=== PATIENT | female | born 1990 | race Caucasian/White ===

== ENCOUNTER → 2016-10-20 | Outpatient (CLI) | payer OTHER ==
[2016-10-20 14:04] VITALS: BP 103/67; PULSE 75; RESP 16; TEMP 99; BMI 43.6
--- NOTE | 2016-11-16 15:10 | P.PN ---
Progress Note - Text REASON FOR CONSULTATION: Initial bariatric evaluation. HISTORY OF PRESENT ILLNESS: The patient is a 26-year-old female who presents with a long-standing history of morbid obesity. At her height of 5 foot 2, her ideal body weight is 135 pounds. Today she comes in at her heaviest of 245 pounds. She is 110 pounds overweight. Her personal goal is to get down to 120 pounds. She reports developing lower back pain including hip pain and knee pain and ankle pain from her obesity. She has also developed obstructive sleep apnea for which treatment is pending. She has tried weight loss with minimal success with caloric restriction. Separately she comes in with troubles with fatty greasy foods. She is maintaining a food an exercise journal. She denies any family history or personal history of Crohn's disease, gastrointestinal cancer, DVTs or pulmonary embolisms. She comes in for evaluation for a Hanh-en- Y gastric bypass. PAST MEDICAL HISTORY: 1. Attention deficit disorder. 2. Depression. 3. Morbid obesity. 4. Osteoarthritis of the bilateral hips. 5. Osteoarthritis of the bilateral knees. 6. Vitamin D deficiency. 7. Anxiety. PAST SURGICAL HISTORY: 1. Denies any upper endoscopies. 2. Denies any abdominal surgeries. 3. LEEP procedure. HOME MEDICATIONS: 1. Wellbutrin 2. Adderall. 3. Vitamin D. ALLERGIES: None. SOCIAL HISTORY: Active tobacco use. FAMILY HISTORY: Denies any DVTs, pulmonary embolisms in her family. Denies any ulcerative colitis disease or Crohn's. She does have a family history of morbid obesity. REVIEW OF ORGAN SYSTEMS: CONSTITUTIONAL: No recent weight loss, fevers or chills. At her height of 5 foot 2, her ideal body weight is 135 pounds. Today she comes in at her heaviest of 245 pounds. She is 110 pounds overweight. HEENT: Denies any active troubles with vision or hearing. ENDOCRINE: No reports of diabetes or hypothyroidism. CARDIOVASCULAR: No reports of palpitations or heart attacks or chest pain. RESPIRATORY: Has daytime somnolence including snoring, suspicious for sleep apnea. No recent asthma. GI: Denies any bright red blood per rectum, diarrhea or constipation. Has intermittent heartburn which had been present during . MUSCULOSKELETAL: Describes generalized muscle aches, including lower back pain or joint pain. NEURO: There were no reports of headaches or seizure disorders. PSYCH: Has depression without suicidal ideation. Has anxiety. HEMATOLOGIC: Denies any abnormal bleeding or bruising. PHYSICAL EXAM: VITAL SIGNS: height 5 foot 2 inches, weight 245 pounds. BMI 43.7. Vital Signs Temp 99 F 10/20/16 13:54 Pulse 75 10/20/16 13:54 Resp 16 10/20/16 13:54 BP 103/67 10/20/16 13:54 Pulse Ox GENERAL: Well-developed female in no acute distress. HEENT: No scleral icterus. Extraocular was grossly intact. No nasal drainage. NECK: Supple without lymphadenopathy. CHEST: Nonlabored respirations with equal bilateral excursions. CARDIOVASCULAR: Regular rate. Distal 2+ pulses. ABDOMEN: Obese, soft, nontender, nondistended. MUSCULOSKELETAL: No clubbing, cyanosis, or edema. Gross strength 5/5 distal lower extremities. NEURO: No focal or lateralizing signs. Cranial nerves 2 through 12 grossly within normal limits. PSYCH: Appropriate affect. Alert and oriented to person, place and time. ASSESSMENT: 1. Morbid obesity due to excess calories. 2. Body mass index of 43.7. 3. Active tobacco use. 4. Tobacco cessation and counseling. 5. Anxiety. 6. Depression. 7. Vitamin D deficiency. 8. Osteoarthritis of the bilateral hips. 9. Osteoarthritis of the bilateral knees. 10. Obstructive sleep apnea. PLAN: 1. I have recommended that she proceed with an upper endoscopy as she has history of reflux disease. With her history of tobacco use, she is at an increased risk for Jackson's disease. 2. Per insurance guidelines, 6 months a medical supervised weight loss was described. Also recommend food and exercise journal. 3. Recommend a bariatric metabolic panel to evaluate for micro, including macronutrient deficiencies. 4. Dietary surveillance and counseling was reviewed, for which she often skips meals. I have asked her to increase her protein intake to at least 70 grams daily. Additionally, I have asked her to not skip meals as this is essentially for her metabolism. 5. Recommend follow-up after upper endoscopy. 6. Upon further discussion, she tested positive for a questionnaire for obstructive sleep apnea. Referral to the sleep center has also been described. 7. Tobacco cessation counseling advised with urine nicotine test. 8. Psych assessment recommended with history of depression and anxiety. Thank you for this consultation.
== END | disposition home or self-care (01) ==
LOC: BARWHC3 13:29
PROVIDERS: ATTEND Surgery Plastic and Reconstructive Surgery
DX: Z01.818 Encounter for other preprocedural examination (principal); E66.01 Morbid (severe) obesity due to excess calories; F17.200 Nicotine dependence, unspecified, uncomplicated; F17.220 Nicotine dependence, chewing tobacco, uncomplicated; F41.9 Anxiety disorder, unspecified; F32.9 Major depressive disorder, single episode, unspecified; G47.33 Obstructive sleep apnea (adult) (pediatric); M16.0 Bilateral primary osteoarthritis of hip; M17.0 Bilateral primary osteoarthritis of knee; Z68.41 Body mass index [BMI] 40.0-44.9, adult; Z71.6 Tobacco abuse counseling; Z79.899 Other long term (current) drug therapy
CPT/HCPCS: 99211

== ENCOUNTER 2016-10-27 10:25 | Day surgery (SDC) | payer OTHER ==
[2016-10-26 10:12] VITALS: BMI 42.0
--- NOTE | 2016-10-27 08:03 | P.GSHP ---
History of Present Illness H&P Date: 10/27/16 CHIEF COMPLAINT: GERD HISTORY OF PRESENT ILLNESS: The patient is a 26-year-old female who presents reports gastroesophageal reflux disease. Upper endoscopy was offered for further evaluation and management. PAST MEDICAL HISTORY: Please see list. PAST SURGICAL HISTORY: Please see list. MEDICATIONS: Please see list. ALLERGIES: Please see list. SOCIAL HISTORY: No illicit drug use FAMILY HISTORY: No reports of Crohn disease or ulcerative colitis. REVIEW OF ORGAN SYSTEMS: CONSTITUTIONAL: No reports of fevers or chills. GI: Denies any blood in stools or constipation. PHYSICAL EXAM: VITAL SIGNS: Stable GENERAL: Well-developed and pleasant in no acute distress. HEENT: No scleral icterus. Extraocular movements grossly intact. Moist buccal mucosa. NECK: Supple without lymphadenopathy. CHEST: Unlabored respirations. Equal bilateral excursions. CARDIOVASCULAR: Regular rate and rhythm. Distal 2+ pulses. ABDOMEN: Soft, nondistended. MUSCULOSKELETAL: No clubbing, cyanosis, or edema. ASSESSMENT: 1. Gastroesophageal reflux disease PLAN: 1. Recommend proceeding with an upper endoscopy Past Medical History Past Medical History: No Reported History Additional Past Medical History / Comment(s): SCREENING FOR GASTRIC BYPASS History of Any Multi-Drug Resistant Organisms: None Reported Past Surgical History: Section Additional Past Surgical History / Comment(s): LEEP Past Anesthesia/Blood Transfusion Reactions: No Reported Reaction Past Psychological History: ADD/ADHD, Anxiety, Depression Smoking Status: Current every day smoker Past Alcohol Use History: None Reported Additional Past Alcohol Use History / Comment(s): SMOKING 1/2 PPD SINCE AGE 15 Past Drug Use History: None Reported - Past Family History Mother History Unknown: Yes Family Medical History: No Reported History Medications and Allergies Home Medications Medication Instructions Recorded Confirmed Type Dextroamphetamine/Amphetamine 10 mg PO DAILY 10/20/16 10/26/16 History [Adderall] Ergocalciferol (Vitamin D2) 50,000 unit PO DIRECTED 10/20/16 10/26/16 History [Vitamin D2] buPROPion XL [Wellbutrin Xl] 150 mg PO DAILY 10/20/16 10/26/16 History Allergies Allergy/AdvReac Type Severity Reaction Status Date / Time No Known Allergies Allergy Verified 10/26/16 10:03
[~2016-10-27 10:25] MED LIST: LACTATED RINGERS 1,000 ML IV SCH; LIDOCAINE 1% 20 ML VIAL (10MG/ML) FOR IV START INTRADERMA PRN
[2016-10-27 10:47] VITALS: TEMP 96.8
[2016-10-27] MEDS ORDERED: PROPOFOL 10 MG/ML 20 ML VIAL IV ONE (11:28)
[2016-10-27] MEDS ORDERED: LIDOCAINE 1% INJ 10MG/ML (20 ML MDV) ONE (11:28)
[2016-10-27 11:52] VITALS: PULSE 81; RESP 16
[2016-10-27 12:21] VITALS: BP 110/67
--- NOTE | 2016-10-29 07:25 | P.PCN ---
Date of Procedure: 10/27/16 Preoperative Diagnosis: Postoperative Diagnosis: Procedure(s) Performed: Implants: Indications for Procedure: Operative Findings: Description of Procedure: PREOPERATIVE DIAGNOSIS: Gastroesophageal reflux disease. POSTOPERATIVE DIAGNOSIS: Gastritis. Gastroesophageal reflux disease. Diaphragmatic hiatal hernia without obstruction. Erosive esophagitis. OPERATION: Esophagogastroduodenoscopy with biopsies along antrum. SURGEON: Carmen Williamson MD ANESTHESIA: MAC. INDICATIONS: The patient is a 26-year-old female who presents with a history of reflux disease. Benefits and risks of the procedure were described. Informed consent was obtained. DESCRIPTION: The patient was brought into the endoscopy suite and laid in the left lateral decubitus position. An Olympus gastroscope was passed along the posterior oropharynx down to the distal esophagus where the squamocolumnar junction was encountered at 36 cm from the incisors. The stomach was entered and no bile reflux was found. Additional findings are listed below. Biopsies with cold forceps were obtained of the antrum. The first through third portion of the duodenum was examined and unremarkable. Retroflexion of the scope confirmed Hill grade 3 lower esophageal valve. The squamocolumnar junction demostrated LA grade C erosive esophagitis. The stomach was desufflated. The patient tolerated the procedure well. FINDINGS: Squamocolumnar junction 36 cm from the incisors. Diaphragmatic hiatus at 39 cm. Hiatal hernia 3 cm. Hill grade 3 lower esophageal valve. LA grade C erosive esophagitis. No active duodenitis. Chronic gastritis. RECOMMENDATIONS: Further recommendations pending results of pathology report. Upper endoscopy as needed. Plan - Discharge Summary New Discharge Prescriptions: New Omeprazole 40 mg PO DAILY #14 capsule. No Action Ergocalciferol (Vitamin D2) [Vitamin D2] 50,000 unit PO DIRECTED buPROPion XL [Wellbutrin Xl] 150 mg PO DAILY Dextroamphetamine/Amphetamine [Adderall] 10 mg PO DAILY Discharge Medication List Dextroamphetamine/Amphetamine [Adderall] 10 mg PO DAILY 10/20/16 [History] Ergocalciferol (Vitamin D2) [Vitamin D2] 50,000 unit PO DIRECTED 10/20/16 [ History] buPROPion XL [Wellbutrin Xl] 150 mg PO DAILY 10/20/16 [History] Omeprazole 40 mg PO DAILY #14 capsule. 10/27/16 [Rx] Follow up Appointment(s)/Referral(s): Carmen Williamson MD [STAFF PHYSICIAN] - 11/17/16 1:40 pm (Bariatric center) Patient Instructions/Handouts: Hiatal Hernia (GEN), Gastroesophageal Reflux Disease (DC) Discharge Disposition: HOME SELF-CARE
== END 2016-10-27 12:39 | disposition home or self-care (01) ==
LOC: ORWHC2ENDO 10:25
PROVIDERS: ATTEND Surgery Plastic and Reconstructive Surgery
DX: K21.0 Gastro-esophageal reflux disease with esophagitis (principal); K29.50 Unspecified chronic gastritis without bleeding; K44.9 Diaphragmatic hernia without obstruction or gangrene; F90.9 Attention-deficit hyperactivity disorder, unspecified type; F32.9 Major depressive disorder, single episode, unspecified; F41.9 Anxiety disorder, unspecified; F17.200 Nicotine dependence, unspecified, uncomplicated; Z79.899 Other long term (current) drug therapy
CPT/HCPCS: 43239; 81025; 88305; 88342; J2001; J2704

== ENCOUNTER → 2016-12-02 | Outpatient (CLI) | payer OTHER ==
[2016-12-02 13:21] VITALS: BP 101/69; PULSE 95; RESP 20; TEMP 99.1; BMI 42.7
--- NOTE | 2016-12-26 13:18 | P.PN ---
Progress Note - Text DATE: 12/02/2016 CHIEF COMPLAINT: Bariatric assessment. HISTORY OF PRESENT ILLNESS: The patient is a 26-year-old female who presents with a long-standing history of morbid obesity. At her height of 5 foot 2, her ideal body weight is 135 pounds. Today she comes weighing 233 pounds. She has lost 12 pounds in almost 2 months. She is 98 pounds overweight. Her body mass index is reduced from 44.9 to 42.7. As result of her weight, she has developed hypertension including obstructive sleep apnea. She has just completed an upper endoscopy as well. PAST MEDICAL HISTORY: 1. Attention deficit disorder. 2. Depression. 3. Morbid obesity. 4. Osteoarthritis of the bilateral hips. 5. Osteoarthritis of the bilateral knees. 6. Vitamin D deficiency. 7. Anxiety. PAST SURGICAL HISTORY: 1. Denies any upper endoscopies. 2. Denies any abdominal surgeries. 3. LEEP procedure. 4. EGD. HOME MEDICATIONS: 1. Wellbutrin 2. Adderall. 3. Vitamin D. ALLERGIES: None. SOCIAL HISTORY: Active tobacco use. FAMILY HISTORY: Denies any DVTs, pulmonary embolisms in her family. Denies any ulcerative colitis disease or Crohn's. She does have a family history of morbid obesity. REVIEW OF ORGAN SYSTEMS: CONSTITUTIONAL: No recent weight loss, fevers or chills. At her height of 5 foot 2, her ideal body weight is 135 pounds. Today she comes in at 233 pounds. She is 98 pounds overweight. She has lost 5 pounds in over 1 month. HEENT: Denies any active troubles with vision or hearing. ENDOCRINE: No reports of diabetes or hypothyroidism. CARDIOVASCULAR: No reports of palpitations or heart attacks or chest pain. RESPIRATORY: Has daytime somnolence including snoring, suspicious for sleep apnea. No recent asthma. GI: Denies any bright red blood per rectum, diarrhea or constipation. Has intermittent heartburn. MUSCULOSKELETAL: Describes generalized muscle aches, including lower back pain or joint pain. NEURO: There were no reports of headaches or seizure disorders. PSYCH: Has depression without suicidal ideation. Has anxiety. HEMATOLOGIC: Denies any abnormal bleeding or bruising. SKIN: Has panniculitis. No skin cancer. PHYSICAL EXAM: VITAL SIGNS: Height 5 foot 2 inches, weight 233 pounds. BMI 42.7. Vital Signs 07/20/17 13:04 Temperature 99.1 F Pulse Rate 95 Respiratory 20 Rate Blood Pressure 101/69 GENERAL: Well-developed female in no acute distress. HEENT: No scleral icterus. Extraocular was grossly intact. No nasal drainage. NECK: Supple without lymphadenopathy. CHEST: Nonlabored respirations with equal bilateral excursions. CARDIOVASCULAR: Regular rate. Distal 2+ pulses. ABDOMEN: Obese, soft, nontender, nondistended. MUSCULOSKELETAL: No clubbing, cyanosis, or edema. Gross strength 5/5 distal lower extremities. NEURO: No focal or lateralizing signs. Cranial nerves 2 through 12 grossly within normal limits. PSYCH: Appropriate affect. Alert and oriented to person, place and time. SKIN: Well perfused. Good skin turgor. EGD FINDINGS: Squamocolumnar junction 36 cm from the incisors. Diaphragmatic hiatus at 39 cm. Hiatal hernia 3 cm. Hill grade 3 lower esophageal valve. LA grade C erosive esophagitis. No active duodenitis. Chronic gastritis. ASSESSMENT: 1. Morbid obesity due to excess calories. 2. Body mass index of 42.7. 3. Active tobacco use. 4. Tobacco cessation and counseling. 5. Anxiety. 6. Depression. 7.Vitamin D deficiency. 8. Osteoarthritis of the bilateral hips. 9. Osteoarthritis of the bilateral knees. 10. Obstructive sleep apnea. 11. Hiatal hernia. PLAN: 1. She is still pending a complete bariatric metabolic profile and labs. 2. Recommended tobacco cessation and counseling. Absolutely no surgical procedure to be performed until her urine drug screen and nicotine test is negative. 3. Recommend correction of underlying nutritional deficiencies. 4. Psych assessment per insurance guidelines. 5. Nutritional assessment with bariatric dietitian. 6. Medical risk assessment. 7. Follow-up upon completion of bariatric metabolic profile.
== END | disposition home or self-care (01) ==
LOC: BARWHC3 12:50
PROVIDERS: ATTEND Surgery Plastic and Reconstructive Surgery
DX: E66.01 Morbid (severe) obesity due to excess calories (principal); F41.9 Anxiety disorder, unspecified; F32.9 Major depressive disorder, single episode, unspecified; E55.9 Vitamin D deficiency, unspecified; M16.0 Bilateral primary osteoarthritis of hip; M17.0 Bilateral primary osteoarthritis of knee; G47.33 Obstructive sleep apnea (adult) (pediatric); K44.9 Diaphragmatic hernia without obstruction or gangrene; E88.81 Metabolic syndrome and other insulin resistance; D50.9 Iron deficiency anemia, unspecified; E11.9 Type 2 diabetes mellitus without complications; E44.0 Moderate protein-calorie malnutrition; Z72.0 Tobacco use; Z68.41 Body mass index [BMI] 40.0-44.9, adult; Z79.899 Other long term (current) drug therapy
CPT/HCPCS: 99211

== ENCOUNTER → 2016-12-29 | Outpatient (CLI) | payer OTHER ==
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
== END | disposition home or self-care (01) ==
LOC: RADXRMAIN 11:29
PROVIDERS: ATTEND Emergency Medicine
DX: S67.21XA Crushing injury of right hand, initial encounter (principal)

== ENCOUNTER 2017-02-24 22:36 | Emergency (ER) | payer OTHER ==
[2017-02-24] MEDS ORDERED: ACETAMINOPHEN TAB 325 MG TAB PO STA (23:21)
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
--- NOTE | 2017-02-24 23:57 | XR ---
EXAMINATION TYPE: XR chest 1V DATE OF EXAM: 02/24/2017 COMPARISON: NONE HISTORY: Back pain TECHNIQUE: Single frontal view of the chest is obtained. FINDINGS: Heart and mediastinum are normal. Lungs are clear. Diaphragm is normal. Bony thorax appear s normal. There is no sign of pneumothorax. IMPRESSION: Normal chest
--- NOTE | 2017-02-24 23:58 | XR ---
EXAMINATION TYPE: XR thoracic spine 2V DATE OF EXAM: 02/24/2017 COMPARISON: NONE HISTORY: Back pain TECHNIQUE: 3 views FINDINGS: The thoracic vertebra have normal spacing and alignment. Posterior elements are intact. The re is no evidence of a paraspinal mass. I see no compression fracture. IMPRESSION: Normal thoracic spine.
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
[2017-02-25 00:44] VITALS: BP 130/77; PULSE 92; RESP 18; TEMP 99.3
== END 2017-02-25 00:45 | disposition home or self-care (01) ==
LOC: EC 22:36
DX: O9A.211 Injury, poisoning and certain other consequences of external causes complicating pregnancy, first trimester (principal); S00.83XA Contusion of other part of head, initial encounter; O99.89 Other specified diseases and conditions complicating pregnancy, childbirth and the puerperium; M54.6 Pain in thoracic spine; O99.331 Smoking (tobacco) complicating pregnancy, first trimester; F17.200 Nicotine dependence, unspecified, uncomplicated; Z3A.11 11 weeks gestation of pregnancy; Y04.0XXA Assault by unarmed brawl or fight, initial encounter; Y92.096 Garden or yard of other non-institutional residence as the place of occurrence of the external cause
CPT/HCPCS: 71010; 72070; 76801; 99284

== ENCOUNTER 2017-04-05 17:36 | Emergency (ER) | payer OTHER ==
[2017-04-05 17:45] VITALS: TEMP 98.7
[2017-04-05 18:39] LABS: Basophils % (A) 0 %; CH 32.3; CHCM 34.5; Eosinophils # (A) 0.5 k/uL (0-0.7); Eosinophils % (A) 5 %; HCT 33.8 % (34.0-46.0); HDW 2.66; HGB 11.5 gm/dL (11.4-16.0); Luc % (Auto) 1; Lymphocytes # (A) 2.1 k/uL (1.0-4.8); Lymphocytes % (A) 22 %; MCH 32.2 pg (25.0-35.0); MCHC 34.2 g/dL (31.0-37.0); MCV 94.3 fL (80.0-100.0); Mean Platelet Volume 9.3; Monocytes # (A) 0.4 k/uL (0-1.0); Monocytes % (A) 4 %; Neutrophils # (A) 6.3 k/uL (1.3-7.7); Neutrophils % (A) 67 %; RBC 3.58 m/uL (3.80-5.40); RDW 14.3 % (11.5-15.5); WBC 9.4 k/uL (3.8-10.6); WBC (Perox) 10.18
[2017-04-05 18:46] LABS: Appearance,Urine Cloudy (Clear); Bacteria,Urine Rare /hpf; Bilirubin,Urine Negative (Negative); Glucose,Urine (UA) Negative (Negative); Ketones,Urine Negative (Negative); Leukocyte Esterase,Urine Trace (Negative); Mucus,Urine Few /hpf; Nitrite,Urine Positive (Negative); Particle Count 20239; Protein,Urine 1+ (Negative); RBC,Urine 3 /hpf (0-5); Specific Gravity,Urine 1.024 (1.001-1.035); Squamous Epithelial Cell,Urine 4 /hpf (0-4); UA Billing (MACRO vs. MICRO) MICRO; WBC,Urine 5 /hpf (0-5)
[2017-04-05 18:49] LABS: ALT 19 U/L (9-52); AST 11 U/L (14-36); Alkaline Phosphatase 57 U/L (38-126); Anion Gap 11 mmol/L; Blood Urea Nitrogen 7 mg/dL (7-17); Carbon Dioxide 18 mmol/L (22-30); Chloride 109 mmol/L (98-107); Glucose 101 mg/dL (74-99); Non-African American GFR(MDRD) >60 (>60 ml/min/1.73 sqM); Potassium 3.8 mmol/L (3.5-5.1); Sodium 138 mmol/L (137-145); Total Bilirubin 0.1 mg/dL (0.2-1.3); Total Protein 6.5 g/dL (6.3-8.2)
--- NOTE | 2017-04-05 19:02 | ED ---
Abdominal Pain HPI - General Chief Complaint: Abdominal Pain Stated Complaint: 17 wks preg. Cramping Time Seen by Provider: 04/05/17 17:49 Source: patient, RN notes reviewed Mode of arrival: ambulatory Limitations: no limitations - History of Present Illness Initial Comments: 27-year-old female presents emergency Department chief complaint abdominal pain . Patient states that she weighs she is over 14 weeks not exactly sure how far along. She states she was supposed to have her first appointment today did not have her ID so they refused to treat her. Patient states that she is a 2. Patient states that she's been having on and off spotting discomfort last 2 weeks. Patient does have some urinary frequency. Denies any fever, chills, chest pain or shortness breath. She states she has chronic back issues and has been taking Tylenol for this. - Related Data Home Medications Medication Instructions Recorded Confirmed Acetaminophen [Tylenol Extra 1,000 mg PO BID PRN 04/05/17 04/05/17 Strength] Multivitamins, Thera [Multivitamin 1 tab PO DAILY 04/05/17 04/05/17 (formulary)] Previous Rx's Medication Instructions Recorded Nitrofurantoin Monohyd/M-Cryst 100 mg PO Q12HR #10 cap 04/05/17 [Macrobid] Allergies Allergy/AdvReac Type Severity Reaction Status Date / Time No Known Allergies Allergy Verified 04/05/17 18:08 Review of Systems ROS Statement: Those systems with pertinent positive or pertinent negative responses have been documented in the HPI. ROS Other: All systems not noted in ROS Statement are negative. Past Medical History Past Medical History: No Reported History Additional Past Medical History / Comment(s): SCREENING FOR GASTRIC BYPASS History of Any Multi-Drug Resistant Organisms: None Reported Past Surgical History: Section Additional Past Surgical History / Comment(s): LEEP Past Anesthesia/Blood Transfusion Reactions: No Reported Reaction Past Psychological History: ADD/ADHD, Anxiety, Depression Smoking Status: Current every day smoker Past Alcohol Use History: None Reported Past Drug Use History: None Reported - Past Family History Mother History Unknown: Yes Family Medical History: No Reported History General Exam Limitations: no limitations General appearance: alert, in no apparent distress Respiratory exam: Present: normal lung sounds bilaterally. Absent: respiratory distress, wheezes, rales, rhonchi, stridor Cardiovascular Exam: Present: regular rate, normal rhythm, normal heart sounds. Absent: systolic murmur, diastolic murmur, rubs, gallop, clicks GI/Abdominal exam: Present: soft, normal bowel sounds. Absent: distended, tenderness, guarding, rebound, rigid Back exam: Absent: CVA tenderness (R), CVA tenderness (L) Course Vital Signs 04/05/17 17:42 Temperature 98.7 F Pulse Rate 105 H Respiratory 18 Rate Blood Pressure 114/64 O2 Sat by Pulse 99 Oximetry Medical Decision Making - Medical Decision Making 27-year-old female presented for abdominal pain . Patient's ultrasound shows no comp in fractures. Patient does have urinary tract infection she was started on Macrobid at this time. Patient is advised to follow-up with [facility] as soon as possible. Patient was escorted today but she failed to bring ID for her appointment. She is advised that she is reschedule his appointment. - Lab Data Result diagrams: 04/05/17 18:20 04/05/17 18:20 Lab Results 04/05/17 04/05/17 04/05/17 Range/Units 18:20 18:20 18:39 WBC 9.4 (3.8-10.6) k/uL RBC 3.58 L (3.80-5.40) m/uL Hgb 11.5 (11.4-16.0) gm/dL Hct 33.8 L (34.0-46.0) % MCV 94.3 (80.0-100.0) fL MCH 32.2 (25.0-35.0) pg MCHC 34.2 (31.0-37.0) g/dL RDW 14.3 (11.5-15.5) % Plt Count 129 L (150-450) k/uL Neutrophils % 67 % Lymphocytes % 22 % Monocytes % 4 % Eosinophils % 5 % Basophils % 0 % Neutrophils # 6.3 (1.3-7.7) k/uL Lymphocytes # 2.1 (1.0-4.8) k/uL Monocytes # 0.4 (0-1.0) k/uL Eosinophils # 0.5 (0-0.7) k/uL Basophils # 0.0 (0-0.2) k/uL Sodium 138 (137-145) mmol/L Potassium 3.8 (3.5-5.1) mmol/L Chloride 109 H (98-107) mmol/L Carbon Dioxide 18 L (22-30) mmol/L Anion Gap 11 mmol/L BUN 7 (7-17) mg/dL Creatinine 0.40 L (0.52-1.04) mg/dL Est GFR (MDRD) Af Amer >60 (>60 ml/min/1.73 sqM) Est GFR (MDRD) Non-Af >60 (>60 ml/min/1.73 sqM) Glucose 101 H (74-99) mg/dL Calcium 9.0 (8.4-10.2) mg/dL Total Bilirubin 0.1 L (0.2-1.3) mg/dL AST 11 L (14-36) U/L ALT 19 (9-52) U/L Alkaline Phosphatase 57 (38-126) U/L Total Protein 6.5 (6.3-8.2) g/dL Albumin 3.7 (3.5-5.0) g/dL Urine Color Yellow Urine Appearance Cloudy H (Clear) Urine pH 6.0 (5.0-8.0) Ur Specific [place] 1.024 (1.001-1.035) Urine Protein 1+ H (Negative) Urine Glucose (UA) Negative (Negative) Urine Ketones Negative (Negative) Urine Blood Negative (Negative) Urine Nitrite Positive H (Negative) Urine Bilirubin Negative (Negative) Urine Urobilinogen 2.0 (<2.0) mg/dL Ur Leukocyte Esterase Trace H (Negative) Urine RBC 3 (0-5) /hpf Urine WBC 5 (0-5) /hpf Ur Squamous Epith Cells 4 (0-4) /hpf Urine Bacteria Rare H (None) /hpf Urine Mucus Few H (None) /hpf Disposition Clinical Impression: Abdominal pain during , UTI (urinary tract infection) Disposition: HOME SELF-CARE Condition: Stable Instructions: Abdominal Pain in (ED) Additional Instructions: Please return to the Emergency Department if symptoms worsen or any other concerns. Prescriptions: Nitrofurantoin Monohyd/M-Cryst [Macrobid] 100 mg PO Q12HR #10 cap Referrals: None,Stated [Primary Care Provider] - 1-2 days Time of Disposition: 19:54
--- NOTE | 2017-04-05 19:51 | US ---
EXAMINATION TYPE: US OB >= 14 wk fetus DATE OF EXAM: 04/05/2017 COMPARISON: 02/24/2017 CLINICAL HISTORY: PainCramping TECHNIQUE: Transabdominal (TA) GESTATIONAL AGE / DATING Physician Established: Not yet established Dates by LMP: LMP unknown ) Dates by First Scan: No previous this is first scan ( Dates by Current Scan: (17 weeks/0 days) EDC: 09/13/2017 Beta HCG (if available): Not available at this time SURVEY IUP: Single PLACENTA: Posterior PREVIA: No Previa KATHERINE: 15.8 cm Normal CERVICAL LENGTH (transabdominal: norm > 3.0cm): 3.6 cm BIOMETRY PRESENTATION: Breech LIE: Longitudinal BPD: 3.6 cm 17 weeks / 0 days HC: 12.5 cm 16 weeks / 2 days AC: 12.2 cm 17 weeks / 6 days FL: 2.2 cm 16 weeks / 4 days ESTIMATED WEIGHT IN GRAMS: 182.8 grams ESTIMATED WEIGHT IN LBS/OZ: 0 lbs. 6 oz. HC/AC: 1.0cm Normal FL/AC: 18.2cm Normal HEART RATE: 145 bpm RHYTHM: Normal MATERNAL WALL MEASUREMENT: 1 cm from skin to anterior uterine wall (if exam limited due to body andersen bitus). Viable IUP [id number] YOLI 09/13/2014 HR 145 BPM IMPRESSION: There is satisfactory growth compared to last exam. No complicating process seen. Normal amniot ic fluid.
[2017-04-05 20:27] VITALS: BP 124/70; PULSE 90; RESP 16
== END 2017-04-05 20:27 | disposition home or self-care (01) ==
LOC: EC 17:36
DX: O23.42 Unspecified infection of urinary tract in pregnancy, second trimester (principal); O99.332 Smoking (tobacco) complicating pregnancy, second trimester; F17.200 Nicotine dependence, unspecified, uncomplicated; Z79.899 Other long term (current) drug therapy; Z3A.17 17 weeks gestation of pregnancy
CPT/HCPCS: 36415; 76805; 80053; 81001; 85025; 87086; 99284

== ENCOUNTER 2017-07-19 22:40 | Outpatient (CLI) | payer OTHER ==
[2017-07-19 23:53] VITALS: BP 136/75; PULSE 95; RESP 16; TEMP 97.4
--- NOTE | 2017-08-05 08:09 | P.MSEPDOC ---
Presenting Problems - Arrival Data Date of Arrival on Unit: 07/19/17 Time of Arrival on Unit: 22:41 Mode of Transport: Wheelchair - Complaint OB-Reason for Admission/Chief Complaint: Vaginal Bleeding Comment: some transfer blood noted on pt underwear, no active bleeding noted Medical History - Information : 6 Para: 4 Term: 4 : 0 Abortions: Spontaneous or Elective: 1 Number of Living Children: 5 - Gestational Age Gestational Age by YOLI (wks/days): 32 Weeks and 0 Days Review of Systems - Review of Systems Constitutional: No problems Breast: No problems ENT: No problems Cardiovascular: No problems Respiratory: No problems Gastrointestinal: No problems Genitourinary: No problems Musculoskeletal: No problems Neurological: No problems Skin: No problems Vital Signs - Temperature Temperature: 97.4 F Temperature Source: Temporal Artery Scan - Pulse Right Sitting Brachial Pulse Rate: 95 Pulse Assessment Method: Pulse Oximetry - Respirations Respiratory Rate: 16 Oxygen Delivery Method: Room Air O2 Sat by Pulse Oximetry: 96 - Blood Pressure Right Arm Sitting Blood Pressure: 136/75 Blood Pressure Mean: 95 Blood Pressure Source: Automatic Cuff Medical Screen Scoring (Pre) - Cervical Exam Dilation: 0 cm = 0 Effacement: Exam Deferred Membranes: Intact - Uterine Contractions Frequency: N/A Duration: N/A Intensity: N/A - Maternal Vital Signs Maternal Temperature: N/A Maternal Blood Pressure: N/A Signs of Preeclampsia: N/A Maternal Respirations: N/A - Pain Assessment Pain Scale Used: Numeric (1 - 10) Pain Intensity: 0 - Maternal Trauma Maternal Trauma: N/A - Assessment Baseline FHR: 145 Heart Rate - NICHD Category: Category I (Normal) = 0 NST: Reactive Position: N/A Station: N/A - Total Score Total Score (Pre): 0 - Level of Risk Level of Risk: Low (0-5) Physician Notification (Post) - Physician Notified Physician Notified Date: 07/19/17 Physician Notified Time: 23:22 Physician/Practitioner Notified:: dr dominguez Spoke With: dr dominguez New Order Received: Yes - Notification Comment Comment: discharge order with instructions for pelvic rest and follow up this week with dr catalan Disposition - Disposition OB Disposition: Discharge to home Discharge Date: 07/19/17 Discharge Time: 23:35 I agree with the RN Medical Screening Exam: Yes Risk & Benefit of care provided described in d/c instruction: Yes Diagnosis: FALSE LABOR BEFORE 37 COMPLETED WEEKS OF GEST, THIRD TRI
== END 2017-07-19 23:37 | disposition home or self-care (01) ==
LOC: FBPOP 22:40
PROVIDERS: ATTEND Obstetrics & Gynecology
DX: O47.03 False labor before 37 completed weeks of gestation, third trimester (principal); Z3A.32 32 weeks gestation of pregnancy
CPT/HCPCS: 59025; 84112; G0463; 99213

== ENCOUNTER 2017-08-24 00:31 | Outpatient (CLI) | payer OTHER ==
[2017-08-24 02:04] VITALS: RESP 19; TEMP 96.8
[2017-08-24 02:06] VITALS: BP 124/72; PULSE 108
--- NOTE | 2017-09-18 10:20 | P.MSEPDOC ---
Presenting Problems - Arrival Data Date of Arrival on Unit: 08/24/17 Time of Arrival on Unit: 00:31 Mode of Transport: Wheelchair - Complaint OB-Reason for Admission/Chief Complaint: Possible Onset of Labor Comment: Cnx since 1999 yesterday evening. States cnxs are about every 3-5 minutes apart. Medical History - Information : 6 Para: 4 Term: 4 : 0 Abortions: Spontaneous or Elective: 1 Number of Living Children: 5 - Gestational Age Gestational Age by YOLI (wks/days): 37 Weeks and 1 Days - History Complications: Prior Review of Systems - Review of Systems Constitutional: No problems Breast: No problems ENT: No problems Cardiovascular: No problems Respiratory: No problems Gastrointestinal: No problems Genitourinary: No problems Musculoskeletal: No problems Neurological: No problems Skin: No problems Vital Signs - Temperature Temperature: 96.8 F Temperature Source: Temporal Artery Scan - Pulse Pulse Oximetery Pulse Rate: 108 Pulse Assessment Method: Automatic Cuff - Respirations Respiratory Rate: 19 Oxygen Delivery Method: Room Air O2 Sat by Pulse Oximetry: 97 - Blood Pressure Right Arm Blood Pressure: 124/72 Blood Pressure Mean: 89 Blood Pressure Source: Automatic Cuff Medical Screen Scoring (Pre) - Cervical Exam Dilation: 1-3 cm = 1 Membranes: Intact - Uterine Contractions Frequency: Scheduled / = 6 Duration: > 40 seconds = 2 Intensity: N/A - Maternal Vital Signs Maternal Temperature: N/A Maternal Blood Pressure: N/A Signs of Preeclampsia: N/A Maternal Respirations: N/A - Pain Assessment Pain Location and Character: Abdomen Pain Scale Used: Numeric (1 - 10) Pain Intensity: 6 Pain Management Goal: 0 Pain Description: Cramping Pain Radiation Location: n/a Pain Frequency: Intermittent Pain Duration: 4 Pain Duration Units: Hours Pain Behavior: Vocalization Effects of Pain: n/a Pain Aggravating Factors: Contractions Pharmacological Interventions: Discuss Pain Med Options Non-Pharmacological Interventions: Darkened Room, Distraction - Maternal Trauma Maternal Trauma: N/A - Assessment Baseline FHR: 140 Heart Rate - NICHD Category: Category I (Normal) = 0 NST: Reactive Position: N/A Station: N/A - Total Score Total Score (Pre): 9 - Level of Risk Level of Risk: Medium (6-9) Medical Screen Scoring (Post) - Cervical Exam Dilation: 1-3 cm = 1 Effacement: Exam Deferred Membranes: Intact - Uterine Contractions Frequency: Scheduled / = 6 Duration: > 40 seconds = 2 Intensity: N/A - Maternal Vital Signs Maternal Temperature: N/A Maternal Blood Pressure: N/A Signs of Preeclampsia: N/A Maternal Respirations: N/A - Pain Assessment Pain Location and Character: Abdomen Pain Scale Used: Numeric (1 - 10) Pain Intensity: 6 Pain Management Goal: 0 Pain Description: Cramping Pain Radiation Location: n/a Pain Frequency: Intermittent Pain Duration: 4 Pain Duration Units: Hours Pain Behavior: Vocalization Effects of Pain: none Pain Aggravating Factors: Contractions Pharmacological Interventions: PRN Medication Non-Pharmacological Interventions: Darkened Room, Distraction - Maternal Trauma Maternal Trauma: N/A - Assessment Heart Rate: 135 Heart Rate - NICHD Category: Category I (Normal) = 0 NST: Reactive Position: N/A Station: N/A - Total Score Total Score (Post): 9 - Post Treatment Level of Risk Post Treatment Level of Risk: Medium (6-9) Physician Notification (Post) - Physician Notified Physician Notified Date: 08/24/17 Physician Notified Time: 01:46 Physician/Practitioner Notified:: Dashawn Spoke With: Dashawn New Order Received: Yes (Discharge home) - Notification Comment Comment: Patient to be discharged home, follow up at scheduled appt this with Dr. Tamez. Disposition - Disposition OB Disposition: Discharge to home Discharge Date: 08/24/17 Discharge Time: 01:50 I agree with the RN Medical Screening Exam: Yes Risk & Benefit of care provided described in d/c instruction: Yes Diagnosis: FALSE LABOR AT OR AFTER 37 COMPLETED WEEKS OF GESTATION
== END 2017-08-24 01:50 | disposition home or self-care (01) ==
LOC: FBPOP 00:31
PROVIDERS: ATTEND Obstetrics & Gynecology
DX: O47.1 False labor at or after 37 completed weeks of gestation (principal); Z3A.37 37 weeks gestation of pregnancy
CPT/HCPCS: 59025; G0463; 99213

== ENCOUNTER 2017-08-24 21:59 | Outpatient (CLI) | payer OTHER ==
[2017-08-25 00:38] VITALS: BP 118/69; PULSE 101; RESP 16; TEMP 99.7
--- NOTE | 2017-08-28 09:52 | P.MSEPDOC ---
Presenting Problems - Arrival Data Date of Arrival on Unit: 08/24/17 Time of Arrival on Unit: 21:59 Mode of Transport: Wheelchair - Complaint OB-Reason for Admission/Chief Complaint: Possible Onset of Labor Comment: pt saman on and off since last night Medical History - Information : 6 Para: 4 Term: 4 : 0 Abortions: Spontaneous or Elective: 1 Number of Living Children: 5 - Gestational Age Gestational Age by YOLI (wks/days): 37 Weeks and 2 Days Review of Systems - Review of Systems Constitutional: No problems Breast: No problems ENT: No problems Cardiovascular: No problems Respiratory: No problems Gastrointestinal: No problems Genitourinary: No problems Musculoskeletal: No problems Neurological: No problems Skin: No problems Vital Signs - Temperature Temperature: 99.7 F Temperature Source: Oral - Pulse Sitting Brachial Pulse Rate: 101 Pulse Assessment Method: Automatic Cuff - Respirations Respiratory Rate: 16 Oxygen Delivery Method: Room Air - Blood Pressure Right Arm Sitting Blood Pressure: 118/69 Blood Pressure Mean: 85 Blood Pressure Source: Automatic Cuff Medical Screen Scoring (Pre) - Cervical Exam Dilation: 1-3 cm = 1 Membranes: Intact - Uterine Contractions Frequency: > 5 minutes apart = 1 Duration: > 40 seconds = 2 Intensity: N/A - Maternal Vital Signs Maternal Temperature: N/A Maternal Blood Pressure: N/A Signs of Preeclampsia: N/A Maternal Respirations: N/A - Maternal Trauma Maternal Trauma: N/A - Assessment Baseline FHR: 135 Heart Rate - NICHD Category: Category I (Normal) = 0 NST: Reactive Position: N/A Station: N/A - Total Score Total Score (Pre): 4 - Level of Risk Level of Risk: Low (0-5) Physician Notification (Pre) - Physician Notified Physician Notified Date: 08/24/17 Physician Notified Time: 23:10 Physician/Practitioner Notifed:: Dr Al New Order Received: Yes - Notification Comment Comment: pt may be discharged if no cervical change Disposition - Disposition OB Disposition: Discharge to home, Written follow up instructions reviewed Discharge Date: 08/24/17 Discharge Time: 23:45 I agree with the RN Medical Screening Exam: Yes Risk & Benefit of care provided described in d/c instruction: Yes Diagnosis: FALSE LABOR AT OR AFTER 37 COMPLETED WEEKS OF GESTATION
== END 2017-08-24 23:45 | disposition home or self-care (01) ==
LOC: FBPOP 21:59
PROVIDERS: ATTEND Obstetrics & Gynecology
DX: O47.1 False labor at or after 37 completed weeks of gestation (principal); Z3A.37 37 weeks gestation of pregnancy
CPT/HCPCS: 59025; G0463; 99213

== ENCOUNTER 2017-09-06 06:15 | Inpatient (IN) | payer OTHER ==
[2017-09-06] MEDS ORDERED: TERBUTALINE 1 MG/ML VIAL SQ PRN (06:59)
[2017-09-06] MEDS ORDERED: LIDOCAINE 1% (PF) 10 MG/ML (30 ML SDV) SQ PRN (06:59)
[2017-09-06] MEDS ORDERED: METHYLERGONOVINE 0.2 MG/ML 1 ML AMP IM PRN (06:59)
[2017-09-06] MEDS ORDERED: OXYTOCIN 10 UNIT/ML 1 ML VIAL IM PRN (06:59)
[2017-09-06] MEDS ORDERED: CARBOPROST TROMETHAMINE 250 MCG/ML 1 ML AMP IM PRN (06:59)
[2017-09-06] MEDS ORDERED: OXYTOCIN 20 UNITS/1000 ML NS 1,000 ML IV SCH ×2 (07:00→13:00)
[2017-09-06] MEDS: LACTATED RINGERS 1,000 ML IV SCH ×2 (07:10→10:23)
[2017-09-06 07:20] LABS: Basophils % (A) 0 %; Eosinophils # (A) 0.3 k/uL (0-0.7); Eosinophils % (A) 3 %; HCT 35.2 % (34.0-46.0); HGB 11.7 gm/dL (11.4-16.0); Lymphocytes # (A) 3.1 k/uL (1.0-4.8); Lymphocytes % (A) 28 %; MCH 30.5 pg (25.0-35.0); MCHC 33.2 g/dL (31.0-37.0); MCV 91.7 fL (80.0-100.0); Monocytes # (A) 0.6 k/uL (0-1.0); Monocytes % (A) 6 %; Neutrophils # (A) 7.1 k/uL (1.3-7.7); Neutrophils % (A) 63 %; Platelet Count 213 k/uL (150-450); RBC 3.84 m/uL (3.80-5.40); RDW 13.2 % (11.5-15.5); WBC 11.3 k/uL (3.8-10.6)
[2017-09-06 07:21] VITALS: BMI 45.7
[2017-09-06] MEDS ORDERED: BUTORPHANOL 1 MG/ML 1 ML VIAL IV PRN (09:19)
--- NOTE | 2017-09-06 09:25 | P.HPOB ---
History of Present Illness H&P Date: 09/06/17 Chief Complaint: 39-0/7 weeks, elective induction, previous section The patient is a 27-year-old 6 para 3113 admitted at 39-0/7 weeks as established by last menstrual period and confirmed by 20 week ultrasound. She is admitted for elective induction of labor per her request. She does carry a history of a previous section done for heart tone concerns and has requested vaginal trial of labor. Her has been entirely uncomplicated and group B strep status is negative. Obstetrical history: 6 para 3113 with 3 normal vaginal deliveries and one 36 week section for heart tones. She is also had one early miscarriage. One child the of SIDS. Current statistics are listed in history of present illness. EDC of 09/13/2017 was established by last menstrual period and confirmed by 20 week ultrasound. Laboratory workup demonstrates a blood type of A+ with a negative antibody screen. Rubella status is immune. The remainder of the laboratory workup was within normal limits. One hour Glucola was normal and group B strep status is negative. Gynecologic history: Unremarkable with no history of any infections to include STDs. Review of Systems Review of systems is confined to history of present illness. Past Medical History Past Medical History: No Reported History Additional Past Medical History / Comment(s): SCREENING FOR GASTRIC BYPASS History of Any Multi-Drug Resistant Organisms: None Reported Past Surgical History: Section Additional Past Surgical History / Comment(s): LEEP Past Anesthesia/Blood Transfusion Reactions: No Reported Reaction Past Psychological History: ADD/ADHD, Anxiety, Depression Smoking Status: Current every day smoker Past Alcohol Use History: None Reported Additional Past Alcohol Use History / Comment(s): SMOKING 1/2 PPD SINCE AGE 15 Past Drug Use History: None Reported - Past Family History Mother History Unknown: Yes Family Medical History: No Reported History Medications and Allergies Home Medications Medication Instructions Recorded Confirmed Type Ranitidine HCl [Zantac] 75 mg PO HS 09/06/17 09/06/17 History Allergies Allergy/AdvReac Type Severity Reaction Status Date / Time No Known Allergies Allergy Verified 09/06/17 06:57 Exam - Vital Signs Vital signs: Vital Signs Temp Pulse Resp BP 09/06/17 06:48 97.5 F L 96 16 110/57 Intake and Output 09/05/17 09/06/17 09/06/17 22:59 06:59 14:59 Other: Weight 113.398 kg In general, this is a well-developed, moderately obese white female in no acute distress. Her heart has a regular rhythm and rate without murmur. Her lungs are clear to auscultation bilaterally in all delong. Her abdomen is gravid, nondistended, has normal active bowel sounds, soft, nontender, and without any palpable masses aside from uterine fundus. Her extremities without any cyanosis , clubbing, or edema and are nontender to palpation bilaterally. Digital cervical examination on straights her cervix to approximate 4 cm dilated, 70% effaced, the vertex in presentation at -2 station. Artificial rupture of membranes is carried out demonstrating clear fluid. Results Result Diagrams: 09/06/17 07:00 Abnormal Lab Results - Last 24 Hours (Table) 09/06/17 Range/Units 07:00 WBC 11.3 H (3.8-10.6) k/uL Assessment and Plan (1) Previous section Current Visit: Yes Status: Acute Code(s): Z98.891 - HISTORY OF UTERINE SCAR FROM PREVIOUS SURGERY SNOMED Code(s): 956835195 (2) Term Current Visit: Yes Status: Acute Code(s): Z34.80 - ENCOUNTER FOR SUPRVSN OF NORMAL , UNSP TRIMESTER SNOMED Code(s): 00862347 Plan: The patient is admitted for active management of labor. She has had Pitocin augmentation started and has undergone artificial rupture of membranes. She will have close maternal and surveillance and expectant management will be practiced. She is a good candidate for either IV or epidural analgesia, whichever she may choose. She does understand that there is a risk to vaginal trial of labor after section and has agreed to proceed.
[2017-09-06] MEDS ORDERED: fentaNYL (PF) 50 MCG/ML 5 ML AMP ONE (09:55)
[2017-09-06] MEDS ORDERED: BUPIVACAINE (PF) 0.25% 30 ML VIAL ONE (09:55)
[2017-09-06] MEDS ORDERED: SODIUM CHLORIDE 0.9% 100 ML BAG ONE (09:55)
[2017-09-06] MEDS ORDERED: diphenhydrAMINE 25 MG CAP PO PRN (12:57)
[2017-09-06] MEDS ORDERED: HYDROCORTISONE 2.5% RECTAL CREAM 30 GM TUBE RECTAL PRN (12:57)
[2017-09-06] MEDS ORDERED: LANOLIN CREAM 5 GM TUBE TOPICAL PRN (12:57)
[2017-09-06] MEDS ORDERED: ACETAMINOPHEN TAB 325 MG TAB PO PRN (12:57)
[2017-09-06] MEDS ORDERED: ZOLPIDEM 5 MG TAB PO PRN (12:57)
[2017-09-06] MEDS ORDERED: SIMETHICONE 80 MG CHEWABLE PO PRN (12:57)
[2017-09-06] MEDS ORDERED: WITCH HAZEL 1 EACH MED..PAD TOPICAL PRN (12:57)
[2017-09-06] MEDS ORDERED: diphenhydrAMINE 50 MG/ML 1 ML VIAL IVP PRN ×2 (12:57)
[2017-09-06] MEDS ORDERED: diphenhydrAMINE 50 MG CAP PO PRN (12:57)
[2017-09-06] MEDS ORDERED: BENZOCAINE/MENTHOL SPRAY 1 GM/SPRAY AEROSOL TOPICAL PRN (12:57)
[2017-09-06] MEDS ORDERED: DIPH,PERTUS(ACELL)TETVAC-LF 0.5 ML VIAL IM ONE (12:59)
--- NOTE | 2017-09-06 13:02 | P.PROBDLV ---
Vaginal Delivery Note - . Vaginal Delivery Note: The patient is a 27-year-old 6 para 07/14/2002 admitted at 39-0/7 weeks by good dating parameters for an elective induction of labor by her request. Her has been essentially uncomplicated though she does have a history of a previous section after having had 3 normal vaginal deliveries. She has requested vaginal trial of labor understanding the risks. On labor and delivery, all signs are reassuring and Pitocin augmentation was started. She underwent artificial rupture of membranes demonstrating clear fluid. She had an epidural catheter placed for analgesia. She then made fairly quick progress through the active phase of labor to complete and pushed over the course of approximately 2 contractions to a normal spontaneous vaginal delivery of a viable 8 lbs. 5 oz. baby boy with Apgars of 8 at 1 minute and 9 at 5 minutes delivered in the direct occiput anterior position. There was a mild shoulder dystocia present which was reduced with Sharif maneuver and suprapubic pressure alone. The time from identification of the shoulder dystocia to delivery was approximately 25-30 seconds. The placenta was delivered spontaneously, intact, and grossly normal with a grossly normal three-vessel cord. Estimated blood loss for the case was approximately 200 mL. The only complication was a mild shoulder dystocia which was reduced quickly. All sponge , instrument, and needle counts were correct. Both mother and infant are resting comfortably in recovery.
[2017-09-06] MEDS: IBUPROFEN 600 MG TAB PO PRN ×2 (15:40→22:33)
[2017-09-06 15:43] VITALS: RESP 16
[2017-09-06] MEDS: SENNOSIDES-DOCUSATE SODIUM 1 EACH TAB PO SCH (21:12)
[2017-09-07 08:10] VITALS: BP 121/69; PULSE 67; TEMP 98.4
[2017-09-07] MEDS: SENNOSIDES-DOCUSATE SODIUM 1 EACH TAB PO SCH (08:17)
--- NOTE | 2017-09-07 08:39 | P.DS ---
Providers Date of admission: 09/06/17 06:39 Expected date of discharge: 09/07/17 Attending physician: Paul Tamez Primary care physician: Stated None - Discharge Diagnosis(es) (1) Previous section Current Visit: Yes Status: Acute (2) Term Current Visit: Yes Status: Acute (3) Vaginal after section Current Visit: Yes Status: Acute Hospital Course: The patient is a 27-year-old 6 para 3113 admitted at 39-0/7 weeks by good dating parameters. She is admitted for elective induction as per her request. She has a history of a previous section for nonreassuring heart tones but has had 3 previous normal vaginal deliveries and requested vaginal trial of labor. As result, she is admitted for induction of labor and started on Pitocin. She underwent artificial rupture of membranes demonstrating clear fluid. She had an epidural catheter placed for analgesia and progressed fairly quickly to complete where after she pushed to a normal spontaneous vaginal delivery, successful vaginal after section, of a viable 8 lbs. 5 oz. baby boy with Apgars of 8 at 1 minute and 9 at 5 minutes. There was a mild shoulder dystocia present which was reduced quickly with Sharif maneuver and suprapubic pressure. The patient's course was unremarkable with vital signs remaining stable and her temperature was afebrile throughout. She was deemed stable for discharge by day #1 was discharged home to follow-up in the office in 6 weeks' time routinely. Discharge instructions included calling for any significantly increased bleeding or foul-smelling lochia, significantly increased fever or abdominal pain, perineal complaints, breast complaints, or anything else that concerned her. She was additionally instructed to have nothing in the vagina for at least 6 weeks time to include intercourse. She understood her instructions and agrees to follow up as noted above. Discharge medications included continued vitamins as she has opted to breast-feed as well as [id number] analgesic pain medications as needed. Maternal blood type is A+ and rubella status is immune. Procedures: #1. Pitocin induction #2. Artificial rupture of membranes #3. Epidural analgesia #4. Normal spontaneous vaginal delivery Patient Condition at Discharge: Good Plan - Discharge Summary New Discharge Prescriptions: No Action Ranitidine HCl [Zantac] 75 mg PO HS Discharge Medication List Ranitidine HCl [Zantac] 75 mg PO HS 09/06/17 [History] Follow up Appointment(s)/Referral(s): Paul Tamez MD [STAFF PHYSICIAN] - 6 Weeks Discharge Disposition: HOME SELF-CARE
[2017-09-07] MEDS: IBUPROFEN 600 MG TAB PO PRN (11:43)
== END 2017-09-07 13:44 | disposition home or self-care (01) | DRG 775 ==
LOC: 4FBP 06:39
PROVIDERS: ADMIT Obstetrics & Gynecology; ATTEND Obstetrics & Gynecology
PROC: 10907ZC Drainage of Amniotic Fluid, Therapeutic from Products of Conception, Via Natural or Artificial Opening (ICD-10-PCS; principal; 2017-09-06)
PROC: 10E0XZZ Delivery of Products of Conception, External Approach (ICD-10-PCS; principal; 2017-09-06)
PROC: 00HU33Z Insertion of Infusion Device into Spinal Canal, Percutaneous Approach (ICD-10-PCS; principal; 2017-09-06)
PROC: 3E0R3NZ Introduction of Analgesics, Hypnotics, Sedatives into Spinal Canal, Percutaneous Approach (ICD-10-PCS; principal; 2017-09-06)
DX: O34.211 Maternal care for low transverse scar from previous cesarean delivery (principal); Z68.42 Body mass index [BMI] 45.0-49.9, adult; O99.214 Obesity complicating childbirth; O99.334 Smoking (tobacco) complicating childbirth; F17.210 Nicotine dependence, cigarettes, uncomplicated; O66.0 Obstructed labor due to shoulder dystocia; Z37.0 Single live birth; Z3A.39 39 weeks gestation of pregnancy
CPT/HCPCS: 85025; 86850; 86900; 86901; 88307; 90715

== ENCOUNTER 2018-05-24 22:49 | Emergency (ER) | payer OTHER ==
[2018-05-25] MEDS ORDERED: IBUPROFEN 600 MG TAB PO STA (00:31)
--- NOTE | 2018-05-25 01:01 | XR ---
EXAMINATION TYPE: XR hand complete RT DATE OF EXAM: 05/25/2018 COMPARISON: NONE HISTORY: Pain TECHNIQUE: 3 views FINDINGS: Metacarpals appear intact. I see no fracture nor dislocation. Joint spaces are normal. Ther e are no erosions. IMPRESSION: Negative right hand exam.
--- NOTE | 2018-05-25 01:52 | ED ---
General Adult HPI - General Chief complaint: Extremity Injury, Upper Stated complaint: Hand injury Time Seen by Provider: 05/25/18 00:00 Source: patient, RN notes reviewed Mode of arrival: ambulatory Limitations: no limitations - History of Present Illness Initial comments: 28-year-old female presents to the emergency department for a chief complaint of right hand pain 12 hours. Patient states she was playing with her children about 12 hours ago when she tripped and fell onto her right hand. Patient states she has had pain since that time. Patient does admit to hitting her head as well. She denies loss of consciousness or blood thinners. Patient has no other complaints at this time including shortness of breath, chest pain, abdominal pain, nausea or vomiting, headache, or visual changes. - Related Data Home Medications Medication Instructions Recorded Confirmed Lexapro (Unknown Dose) 1 tab PO DAILY 05/24/18 05/24/18 Phentermine HCl [Adipex-P] 37.5 mg PO DAILY 05/24/18 05/24/18 Allergies Allergy/AdvReac Type Severity Reaction Status Date / Time No Known Allergies Allergy Verified 05/24/18 23:20 Review of Systems ROS Statement: Those systems with pertinent positive or pertinent negative responses have been documented in the HPI. ROS Other: All systems not noted in ROS Statement are negative. Past Medical History Past Medical History: No Reported History Additional Past Medical History / Comment(s): SCREENING FOR GASTRIC BYPASS History of Any Multi-Drug Resistant Organisms: None Reported Past Surgical History: Section Additional Past Surgical History / Comment(s): LEEP Past Anesthesia/Blood Transfusion Reactions: No Reported Reaction Past Psychological History: ADD/ADHD, Anxiety, Depression Smoking Status: Current every day smoker Past Alcohol Use History: None Reported Past Drug Use History: None Reported - Past Family History Mother History Unknown: Yes Family Medical History: No Reported History General Exam Limitations: no limitations General appearance: alert, in no apparent distress Head exam: Present: atraumatic, normocephalic, normal inspection Eye exam: Present: normal appearance, PERRL, EOMI. Absent: scleral icterus, conjunctival injection, periorbital swelling ENT exam: Present: normal exam, normal oropharynx, mucous membranes moist, TM's normal bilaterally, normal external ear exam Neck exam: Present: normal inspection, full ROM. Absent: tenderness, meningismus, lymphadenopathy Respiratory exam: Present: normal lung sounds bilaterally. Absent: respiratory distress, wheezes, rales, rhonchi, stridor Cardiovascular Exam: Present: regular rate, normal rhythm, normal heart sounds. Absent: systolic murmur, diastolic murmur, rubs, gallop, clicks Extremities exam: Present: tenderness (Tenderness noted to the proximal dorsal fifth metacarpal on the right hand), normal capillary refill (Capillary refill less than 2 seconds and radial pulse 2+), other (Sensation intact in the right upper extremity. There is a small 2 cm x 2 cm area of ecchymosis noted to the dorsal proximal right fifth metacarpal.). Absent: full ROM (full ROM of right wrist. Full range of motion of first through fourth fingers and right hand. Patient has about 20 flexion of the left fifth digit and full extension.) Neurological exam: Present: alert, oriented X3, CN II-XII intact Psychiatric exam: Present: normal affect, normal mood Course Vital Signs 05/24/18 22:59 Pulse Rate 100 Respiratory 18 Rate Blood Pressure 112/67 O2 Sat by Pulse 100 Oximetry Medical Decision Making - Medical Decision Making 28-year-old female presents to the emergency department for a chief complaint of right hand pain. Patient fell while playing with her children. On exam patient does have mild ecchymosis present with some limited range motion of the right fifth digit. X-ray negative for acute fracture. Report and image reviewed. Patient also hit her head. She does have a small hematoma noted on the frontal bone. Discussed CT, patient refuses at this time stating her head feels fine, no headache, no loss of consciousness, no vomiting confusion. Patient's hand was wrapped with an Lukas wrap. Patient will follow up with primary care. Discussed repeat x-ray in 7 days if symptoms do not improve. Disposition Clinical Impression: Hand pain, right Disposition: HOME SELF-CARE Condition: Good Instructions: Hand Sprain (ED) Additional Instructions: Please rest ice and elevate the right hand. Use Lukas wrap as needed for comfort. If symptoms do not resolve within 7 days follow-up with primary care for repeat x-ray. Return to the emergency department if you have any worsening symptoms. Is patient prescribed a controlled substance at d/c from ED?: No Referrals: Vaughn Solo MD [Primary Care Provider] - 1-2 days Time of Disposition: 01:51
[2018-05-25 02:03] VITALS: BP 137/95; PULSE 84; RESP 16; TEMP 97.5
== END 2018-05-25 02:03 | disposition home or self-care (01) ==
LOC: EC 22:49
DX: S60.221A Contusion of right hand, initial encounter (principal); S00.83XA Contusion of other part of head, initial encounter; F32.9 Major depressive disorder, single episode, unspecified; F41.9 Anxiety disorder, unspecified; F17.200 Nicotine dependence, unspecified, uncomplicated; Z98.84 Bariatric surgery status; W01.10XA Fall on same level from slipping, tripping and stumbling with subsequent striking against unspecified object, initial encounter; Y92.009 Unspecified place in unspecified non-institutional (private) residence as the place of occurrence of the external cause; Y93.89 Activity, other specified
CPT/HCPCS: 99283

== ENCOUNTER 2019-01-01 21:28 | Emergency (ER) | payer OTHER ==
[2019-01-01] MEDS ORDERED: MORPHINE SULFATE 4 MG/ML SYRINGE IVP STA ×2 (21:36→21:38)
[2019-01-01] MEDS ORDERED: KETAMINE 10 MG/ML 20 ML VIAL IV ONE ×2 (21:36)
[2019-01-01] MEDS ORDERED: SODIUM CHLORIDE 0.9% 1,000 ML IV STA ×2 (21:38)
[2019-01-01 22:10] VITALS: RESP 18
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
[2019-01-01 22:39] VITALS: BP 121/83; PULSE 85; TEMP 98.5
== END 2019-01-01 22:39 | disposition other institution (70) ==
LOC: EC 21:28
DX: T21.12XA Burn of first degree of abdominal wall, initial encounter (principal); T25.122A Burn of first degree of left foot, initial encounter; T25.121A Burn of first degree of right foot, initial encounter; T31.0 Burns involving less than 10% of body surface; F41.9 Anxiety disorder, unspecified; F32.9 Major depressive disorder, single episode, unspecified; F17.200 Nicotine dependence, unspecified, uncomplicated; Z79.899 Other long term (current) drug therapy; X10.2XXA Contact with fats and cooking oils, initial encounter; Y93.G3 Activity, cooking and baking
CPT/HCPCS: 99284; 96374; 96375; 96376; 96361; J2270

== ENCOUNTER 2020-05-06 00:16 | Outpatient (CLI) | payer OTHER ==
[2020-05-06 02:30] VITALS: BP 133/71; PULSE 110; RESP 20; TEMP 98.3
--- NOTE | 2020-07-01 19:20 | P.MSEPDOC ---
Presenting Problems - Arrival Data Date of Arrival on Unit: 05/06/20 Time of Arrival on Unit: 00:16 Mode of Transport: Wheelchair - Complaint OB-Reason for Admission/Chief Complaint: Possible Onset of Labor Comment: cntrx since 2199 Medical History - Information : 8 Para: 5 Term: 5 : 0 Abortions: Spontaneous or Elective: 2 Number of Living Children: 4 - Gestational Age Gestational Age by YOLI (wks/days): 37 Weeks and 3 Days - History Complications: Prior , Smoker Comment: c/s with baby #4 for NRFHTs. with #5 Review of Systems - Review of Systems Constitutional: No problems Breast: No problems ENT: No problems Cardiovascular: No problems Respiratory: No problems Gastrointestinal: No problems Genitourinary: No problems Musculoskeletal: No problems Neurological: No problems Skin: No problems Vital Signs - Temperature Temperature: 98.3 F Temperature Source: Temporal Artery Scan - Pulse Right Pulse Rate: 110 Pulse Assessment Method: Pulse Oximetry - Respirations Respiratory Rate: 20 O2 Sat by Pulse Oximetry: 96 - Blood Pressure Right Arm Blood Pressure: 133/71 Blood Pressure Mean: 91 Blood Pressure Source: Automatic Cuff Medical Screen Scoring (Pre) - Cervical Exam Dilation: 1-3 cm = 1 Membranes: Intact - Uterine Contractions Frequency: Scheduled / = 6 Duration: > 40 seconds = 2 Intensity: N/A - Maternal Vital Signs Maternal Temperature: N/A Maternal Blood Pressure: N/A Signs of Preeclampsia: N/A Maternal Respirations: N/A - Maternal Trauma Maternal Trauma: N/A - Assessment - Baby A Baseline FHR: 135 Heart Rate - NICHD Category: Category I (Normal) = 0 NST: Reactive Position: N/A - Total Score - Baby A Total Score - Baby A: 9 - Total Score - Baby B Total Score - Baby B: 9 - Total Score - Baby C Total Score - Baby C: 9 - Level of Risk - Baby A Level of Risk - Baby A: Medium (6-9) - Level of Risk - Baby B Level of Risk - Baby B: Medium (6-9) - Level of Risk - Baby C Level of Risk - Baby C: Medium (6-9) Physician Notification (Pre) - Physician Notified Physician Notified Date: 05/06/20 Physician Notified Time: 01:35 - Notification Comment Comment: Called Dr. Al notified regarding pt being seen in triage, updated on pt. condition, reactive NST, Irregular mild contractions per toco. No change in cervix exam. Telephone order given to discharge to home pt. to keep her tuesday appointment. Disposition - Disposition OB Disposition: Discharge to home Discharge Date: 05/06/20 Discharge Time: 01:39 I agree with the RN Medical Screening Exam: Yes Case reviewed; plan agreed upon as documented in EMR&OBIX.: Yes Diagnosis: rule out labor
== END 2020-05-06 01:45 | disposition home or self-care (01) ==
LOC: FBPOP 00:16
PROVIDERS: ATTEND Obstetrics & Gynecology
DX: O26.893 Other specified pregnancy related conditions, third trimester (principal); Z3A.37 37 weeks gestation of pregnancy
CPT/HCPCS: 59025; G0463; 99213

== ENCOUNTER 2020-05-19 06:00 | Inpatient (IN) | payer OTHER ==
[2020-05-19] MEDS ORDERED: OXYTOCIN 10 UNIT/ML 1 ML VIAL IM PRN (06:51)
[2020-05-19] MEDS ORDERED: LIDOCAINE 0.5% (PF) 5 MG/ML (50 ML SDV) SQ PRN (06:51)
[2020-05-19] MEDS ORDERED: TERBUTALINE 1 MG/ML VIAL SQ PRN (06:51)
[2020-05-19] MEDS ORDERED: METHYLERGONOVINE 0.2 MG/ML 1 ML AMP IM PRN (06:51)
[2020-05-19] MEDS ORDERED: CARBOPROST TROMETHAMINE 250 MCG/ML 1 ML AMP IM PRN (06:51)
[2020-05-19] MEDS: LACTATED RINGERS 1,000 ML IV SCH (06:56)
[2020-05-19] MEDS ORDERED: LACTATED RINGERS 1,000 ML IV SCH (07:00)
[2020-05-19] MEDS ORDERED: OXYTOCIN 30 UNITS/500 ML NS 30 UNIT in SALINE 1 500ML.BAG IV SCH (07:00)
[2020-05-19 07:03] LABS: Basophils # (A) 0.1 k/uL (0-0.2); Basophils % (A) 1 %; Eosinophils # (A) 0.6 k/uL (0-0.7); Eosinophils % (A) 5 %; HCT 33.1 % (34.0-46.0); HGB 11.5 gm/dL (11.4-16.0); Lymphocytes # (A) 3.5 k/uL (1.0-4.8); Lymphocytes % (A) 25 %; MCH 33.4 pg (25.0-35.0); MCHC 34.7 g/dL (31.0-37.0); MCV 96.3 fL (80.0-100.0); Mean Platelet Volume 7.8; Monocytes # (A) 0.8 k/uL (0-1.0); Monocytes % (A) 6 %; Neutrophils # (A) 8.5 k/uL (1.3-7.7); Neutrophils % (A) 62 %; Platelet Count 267 k/uL (150-450); RBC 3.44 m/uL (3.80-5.40); RDW 13.2 % (11.5-15.5); WBC 13.7 k/uL (3.8-10.6)
[2020-05-19] MEDS ORDERED: BUTORPHANOL 1 MG/ML 1 ML VIAL IV PRN (08:41)
--- NOTE | 2020-05-19 08:48 | P.HPOB ---
History of Present Illness H&P Date: 05/19/20 Chief Complaint: 39-2/7 weeks, elective induction The patient is a 30-year-old 7 para 4124 admitted at 39-2/7 weeks as established by an 18 week ultrasound. She is admitted for elective induction with all signs reassuring. Her has been uncomplicated and group B strep status is negative. She has requested a tubal ligation and signed consent to that effect in the office. She also has a history of a previous section with a successful vaginal after following that and has requested trial of labor at this time. Obstetrical history: 7 para 4124 with 3 term vaginal births and 136 week section with a successful following. Current statistics are listed in history present illness. EDC of 05/24/2020 was established by an 18 week ultrasound. Laboratory workup demonstrates a blood type of A+ with a negative antibody screen. Rubella status is immune. Remainder of the laboratory workup is within normal limits though it is not apparent on the chart at this time. One hour Glucola was within normal limits and group B strep status is negative. Gynecologic history: Unremarkable with no history of any infections to include STDs. Review of Systems Review of systems is confined to history of present illness. Past Medical History Past Medical History: No Reported History Additional Past Medical History / Comment(s): SCREENING FOR GASTRIC BYPASS History of Any Multi-Drug Resistant Organisms: None Reported Past Surgical History: Section Additional Past Surgical History / Comment(s): LEEP Past Anesthesia/Blood Transfusion Reactions: No Reported Reaction Past Psychological History: ADD/ADHD, Anxiety, Depression Smoking Status: Current every day smoker Past Alcohol Use History: None Reported Additional Past Alcohol Use History / Comment(s): SMOKING 1/2 PPD SINCE AGE 15 Past Drug Use History: None Reported - Past Family History Mother History Unknown: Yes Family Medical History: No Reported History Medications and Allergies Home Medications Medication Instructions Recorded Confirmed Type Pnv No.95/Ferrous Fum/Folic AC 1 each PO DAILY 03/03/20 05/19/20 History [ Multivitamin Tablet] Allergies Allergy/AdvReac Type Severity Reaction Status Date / Time No Known Allergies Allergy Verified 05/19/20 06:50 Exam Vital Signs Temp Pulse Resp BP Pulse Ox 05/19/20 06:52 96.5 F L 100 16 129/75 98 Intake and Output 0105/19/20 05/19/20 22:59 06:59 14:59 Other: Weight 99.79 kg In general, this is a well-developed, well-nourished white female in no acute distress. Her heart has a regular rhythm and rate without murmur. Her lungs are clear to auscultation bilaterally in all delong. Her abdomen is gravid, nondistended, has normal active bowel sounds, soft, nontender, and without any palpable masses aside from uterine fundus. Her extremities are without any cyanosis, clubbing, or significant edema and are nontender to palpation bilaterally. Digital cervical examination of issues cervix to be 3-4 cm dilated, 70% effaced, the vertex in presentation at -2 station. Artificial rupture of membranes is carried out demonstrating clear fluid. Results Result Diagrams: 05/19/20 06:55 Abnormal Lab Results - Last 24 Hours (Table) 05/19/20 Range/Units 06:55 WBC 13.7 H (3.8-10.6) k/uL RBC 3.44 L (3.80-5.40) m/uL Hct 33.1 L (34.0-46.0) % Neutrophils # 8.5 H (1.3-7.7) k/uL Assessment and Plan (1) Previous section Current Visit: No Status: Acute Code(s): Z98.891 - HISTORY OF UTERINE SCAR FROM PREVIOUS SURGERY SNOMED Code(s): 367326785 (2) Term Current Visit: No Status: Acute Code(s): Z34.80 - ENCOUNTER FOR SUPRVSN OF NORMAL , UNSP TRIMESTER SNOMED Code(s): 61952240 Plan: The patient is admitted for elective induction of labor. Pitocin augmentation has been started and she has undergone artificial rupture of membranes. She will have close maternal and surveillance and expectant management will be practiced. She is a good candidate for either IV or epidural analgesia and has actually had an epidural catheter placed at this time for analgesia though it has not yet been dosed as she is still comfortable.
[2020-05-19] MEDS ORDERED: HYDROcodone/APAP 7.5-325MG 1 EACH TAB PO PRN (12:47)
[2020-05-19] MEDS ORDERED: BENZOCAINE/MENTHOL SPRAY 1 GM/SPRAY AEROSOL TOPICAL PRN (12:47)
[2020-05-19] MEDS ORDERED: LANOLIN CREAM 5 GM TUBE TOPICAL PRN (12:47)
[2020-05-19] MEDS ORDERED: diphenhydrAMINE 25 MG CAP PO PRN (12:47)
[2020-05-19] MEDS ORDERED: diphenhydrAMINE 50 MG CAP PO PRN (12:47)
[2020-05-19] MEDS ORDERED: SIMETHICONE 80 MG CHEWABLE PO PRN (12:47)
[2020-05-19] MEDS ORDERED: ACETAMINOPHEN TAB 325 MG TAB PO PRN (12:47)
[2020-05-19] MEDS ORDERED: diphenhydrAMINE 50 MG/ML 1 ML VIAL IVP PRN ×2 (12:47)
[2020-05-19] MEDS ORDERED: HYDROCORTISONE 2.5% RECTAL CREAM 30 GM TUBE RECTAL PRN (12:47)
[2020-05-19] MEDS ORDERED: ZOLPIDEM 5 MG TAB PO PRN (12:47)
[2020-05-19] MEDS ORDERED: HYDROcodone/APAP 5-325MG 1 EACH TAB PO PRN (12:47)
--- NOTE | 2020-05-19 12:51 | P.PROBDLV ---
Vaginal Delivery Note - . Vaginal Delivery Note: The patient is a 30-year-old 7 para 08/15/2003 admitted at 39-2/7 weeks by good dating parameters. She is admitted for elective induction with all signs reassuring. Her has been essentially uncomplicated though she does have a history of previous section with successful vaginal after following that. She has requested trial of labor. On labor and delivery, she had Pitocin started followed by artificial rupture of membranes. She later had an epidural catheter placed for analgesia. She progressed fairly quickly through the latent and active phase of labor to complete and then pushed over the course of 1 contraction to a normal spontaneous vaginal delivery of a viable 8 lbs. 1 oz. baby girl with Apgars of 9 at 1 minute and 9 at 5 minutes delivered in the right occiput anterior position. There was a moderate shoulder dystocia present which was managed initially with Sharif maneuver but then delivered by delivering the posterior shoulder after which time there was minimal difficulty. The placenta was delivered spontaneously, intact, and grossly normal with a grossly normal, centrally inserted three-vessel cord. There were no lacerations of the perineum, vagina, or cervix. Estimated blood loss for the case is approximately 100 mL. There were no complications aside from the aforementioned shoulder dystocia. All sponge, instrument, needle counts were correct. Both mother and are resting comfortably in recovery.
[2020-05-19] MEDS ORDERED: OXYTOCIN 20 UNITS/1000 ML NS 1,000 ML IV SCH (13:00)
[2020-05-19] MEDS ORDERED: ROPIVACAINE 100 MG, fentaNYL (PF) 200 MCG in SODIUM CHLORIDE 0.9% 76 ML EPIDURAL ONE (14:24)
[2020-05-19] MEDS: SENNOSIDES-DOCUSATE SODIUM 1 EACH TAB PO SCH (20:04)
[2020-05-19] MEDS: IBUPROFEN 600 MG TAB PO PRN (20:06)
[2020-05-20] MEDS: IBUPROFEN 600 MG TAB PO PRN ×2 (04:55→10:39)
[2020-05-20 07:35] LABS: Basophils % (A) 0 %; Eosinophils # (A) 0.5 k/uL (0-0.7); Eosinophils % (A) 4 %; HCT 32.4 % (34.0-46.0); HGB 10.8 gm/dL (11.4-16.0); Lymphocytes # (A) 3.3 k/uL (1.0-4.8); Lymphocytes % (A) 28 %; MCH 32.7 pg (25.0-35.0); MCHC 33.2 g/dL (31.0-37.0); MCV 98.5 fL (80.0-100.0); Monocytes # (A) 0.8 k/uL (0-1.0); Monocytes % (A) 7 %; Neutrophils # (A) 6.6 k/uL (1.3-7.7); Neutrophils % (A) 57 %; Platelet Count 252 k/uL (150-450); RBC 3.29 m/uL (3.80-5.40); RDW 13.8 % (11.5-15.5); WBC 11.6 k/uL (3.8-10.6)
[2020-05-20] MEDS: LACTATED RINGERS 1,000 ML IV SCH (08:29)
[2020-05-20] MEDS: SENNOSIDES-DOCUSATE SODIUM 1 EACH TAB PO SCH (08:30)
[2020-05-20 08:37] VITALS: RESP 18
--- NOTE | 2020-05-20 08:54 | P.DS ---
Providers Date of admission: 05/19/20 06:36 Expected date of discharge: 05/20/20 Attending physician: Paul Tamez Primary care physician: Stated None - Discharge Diagnosis(es) (1) Previous section Current Visit: Yes Status: Acute (2) Term Current Visit: Yes Status: Acute (3) Normal spontaneous vaginal delivery Current Visit: Yes Status: Acute (4) Vaginal after section Current Visit: Yes Status: Acute Hospital Course: The patient is a 30-year-old 7 para 4124 admitted at 39-2/7 weeks by good dating parameters perches admitted for an elective induction with all signs reassuring. Her was uncomplicated and group B strep status is negative. She did request a tubal ligation which will be performed a roughly 6 weeks with consent signed in the office. She has history of a previous section with successful vaginal after and has requested trial of labor for this . On labor and delivery, she had Pitocin started followed by artificial rupture of membranes for clear fluid. She made progress to the active phase and had an epidural catheter placed for analgesia. She then progressed fairly quickly through the active phase of labor to complete and pushed to a normal spontaneous vaginal delivery of a viable 8 lbs. 1 oz. baby girl with Apgars of 9 at 1 minute and 9 at 5 minutes. Her course was unremarkable vital signs remained stable and her temperature was afebrile throughout. She was deemed stable for discharge on day 1 and was discharged home to follow-up in the office in 6 weeks' time routinely. Discharge instructions included calling for any significantly increased bleeding or foul-smelling lochia, significantly increased fever abdominal pain, perineal complaints, breast complaints, or anything else that concerned her. She is additionally instructed to have nothing in the vagina for at least 6 weeks time to include intercourse. She understood her instructions and agrees to follow-up in 6 weeks time as noted above. Discharge medications included continue vitamins as she has opted breast-feed as well as [id number] analgesic pain medications. Maternal blood type is A+ and rubella status is immune. Plan - Discharge Summary New Discharge Prescriptions: No Action Pnv No.95/Ferrous Fum/Folic AC [ Multivitamin Tablet] 1 each PO DAILY Discharge Medication List Pnv No.95/Ferrous Fum/Folic AC [ Multivitamin Tablet] 1 each PO DAILY 03/03/20 [History] Follow up Appointment(s)/Referral(s): Paul Tamez MD [STAFF PHYSICIAN] - 6 Weeks Discharge Disposition: HOME SELF-CARE
[2020-05-20 14:27] VITALS: BP 102/58; PULSE 80; TEMP 98
== END 2020-05-20 14:51 | disposition home or self-care (01) | DRG 807 ==
LOC: 4FBP 06:36
PROVIDERS: ADMIT Obstetrics & Gynecology; ATTEND Obstetrics & Gynecology
PROC: 10E0XZZ Delivery of Products of Conception, External Approach (ICD-10-PCS; principal; 2020-05-19)
DX: O34.219 Maternal care for unspecified type scar from previous cesarean delivery (principal); Z37.0 Single live birth; O66.0 Obstructed labor due to shoulder dystocia; Z3A.39 39 weeks gestation of pregnancy; F17.200 Nicotine dependence, unspecified, uncomplicated; F32.9 Major depressive disorder, single episode, unspecified; F41.9 Anxiety disorder, unspecified; F90.9 Attention-deficit hyperactivity disorder, unspecified type; O99.334 Smoking (tobacco) complicating childbirth; O99.344 Other mental disorders complicating childbirth
CPT/HCPCS: 85025; 86850; 86900; 86901

== ENCOUNTER 2021-01-21 03:03 | Observation (INO) | payer OTHER ==
[2021-01-21] MEDS ORDERED: HYDROmorphone 1 MG/ML 1 ML SYRINGE IVP STA ×2 (04:13→08:07)
--- NOTE | 2021-01-21 04:23 | ED ---
Abdominal Pain HPI <Rj Olivares - Last Filed: 01/21/21 12:27> - General Source: EMS Mode of arrival: EMS Limitations: no limitations - History of Present Illness MD Complaint: abdominal pain Onset/Timin -: hour(s) Location: periumbilical Radiation: none Migration to: no migration Severity: severe Quality: cramping Consistency: constant Improves With: nothing Worsens With: nothing Associated Symptoms: nausea - Related Data LMP (females 10-50): this week Patient : No <Porfirio Luis - Last Filed: 01/24/21 13:23> - General Chief Complaint: Abdominal Pain Stated Complaint: Abd Pain Time Seen by Provider: 01/21/21 03:59 - History of Present Illness Initial Comments: This patient is a 30-year-old woman who complains of having going on 22 hours now of periumbilical aching and cramping pain that has been getting progressively worse. She states now is severe. She has not noted worsening or relieving factors. The patient notes that there has been some nausea but no vomiting. Her last bowel movement was yesterday and was normal she denies any change in urination. Her last period had started 2 days ago and she states is normal. (Porfirio Luis) - Related Data Home Medications Medication Instructions Recorded Confirmed No Known Home Medications 01/21/21 01/21/21 Allergies Allergy/AdvReac Type Severity Reaction Status Date / Time No Known Allergies Allergy Verified 01/21/21 08:42 Review of Systems ROS Other: All systems not noted in ROS Statement are negative. <Rj Olivares - Last Filed: 01/21/21 12:27> ROS Other: All systems not noted in ROS Statement are negative. Constitutional: Denies: fever, chills Respiratory: Denies: cough, dyspnea Cardiovascular: Denies: chest pain, palpitations Gastrointestinal: Reports: abdominal pain, nausea. Denies: vomiting, diarrhea, constipation, melena, hematochezia Genitourinary: Denies: dysuria, frequency, hematuria, abnormal menses Musculoskeletal: Denies: back pain Skin: Denies: rash Neurological: Denies: headache, weakness, numbness <Porfirio Luis - Last Filed: 01/24/21 13:23> ROS Statement: Those systems with pertinent positive or pertinent negative responses have been documented in the HPI. Past Medical History Past Medical History: No Reported History Additional Past Medical History / Comment(s): SCREENING FOR GASTRIC BYPASS History of Any Multi-Drug Resistant Organisms: None Reported Past Surgical History: Section Additional Past Surgical History / Comment(s): LEEP Past Anesthesia/Blood Transfusion Reactions: No Reported Reaction Past Psychological History: ADD/ADHD, Anxiety, Depression Smoking Status: Current every day smoker Past Alcohol Use History: None Reported Past Drug Use History: None Reported - Past Family History Mother History Unknown: Yes Family Medical History: No Reported History <Porfirio Luis - Last Filed: 01/24/21 13:23> General Exam External exam: Present: normal external exam (Madison Malloy is present) Speculum exam: Present: normal speculum exam By manual exam: Present: adnexal tenderness (Moderate right-sided) <Rj Olivares - Last Filed: 01/21/21 12:27> Limitations: no limitations General appearance: alert, in distress Head exam: Present: atraumatic, normocephalic Eye exam: Present: normal appearance. Absent: scleral icterus, conjunctival injection ENT exam: Present: normal oropharynx Neck exam: Present: normal inspection Respiratory exam: Present: normal lung sounds bilaterally. Absent: respiratory distress, wheezes, rales, rhonchi, stridor Cardiovascular Exam: Present: regular rate, normal rhythm, normal heart sounds. Absent: systolic murmur, diastolic murmur, rubs, gallop GI/Abdominal exam: Present: soft, tenderness. Absent: distended, guarding, rebound, rigid, mass, pulsatile mass Extremities exam: Present: normal inspection, normal capillary refill. Absent: pedal edema, calf tenderness Back exam: Present: normal inspection. Absent: CVA tenderness (R), CVA tenderness (L) Neurological exam: Present: alert Skin exam: Present: warm, dry, intact, normal color. Absent: rash <Porfirio Luis - Last Filed: 01/24/21 13:23> Course <Rj Olivares - Last Filed: 01/21/21 12:27> Vital Signs 01/21/21 01/21/21 01/21/21 03:13 03:37 05:10 Temperature 98.1 F Pulse Rate 91 87 Respiratory 20 18 Rate Blood Pressure 116/70 118/76 O2 Sat by Pulse 98 95 Oximetry 01/21/21 01/21/2101/21/21 07:00 12:45 16:42 Temperature 98 F 98.8 F Pulse Rate 82 89 68 Respiratory 18 16 16 Rate Blood Pressure 116/65 104/71 109/56 O2 Sat by Pulse 95 98 97 Oximetry 01/21/21 01/21/21 01/22/21 16:48 18:39 00:00 Temperature Pulse Rate 101 H 96 99 Respiratory 16 18 16 Rate Blood Pressure 120/79 124/71 103/58 O2 Sat by Pulse 100 97 98 Oximetry 01/22/21 06:00 Temperature 98.8 F Pulse Rate 92 Respiratory 18 Rate Blood Pressure 106/74 O2 Sat by Pulse Oximetry - Reevaluation(s) Reevaluation #1: 01/21/21 09:53 Patient reevaluated and still having discomfort. Pelvic exam. Right adnexal tenderness and ultrasound will be ordered. 01/21/21 12:27 Pelvic ultrasound shows nonspecific hypoechoic lesion posterior to right ovary, possibly related to bowel. Underlying mass or adnexal lesion not excluded recommend MRI. Patient reevaluated and somewhat improved. Discomfort 10/23. Patient updated on results and plan. Case was discussed with Dr. bryant, covering for Dr. Arzate, who will admit. Patient states she is previously seen Dr. Falcon he will be placed on consult. (Rj Olivares) Medical Decision Making - Lab Data Result diagrams: 01/21/21 04:04 01/21/21 04:04 - Radiology Data Radiology results: report reviewed (Computed tomography scan abdomen pelvis: Negative. Normal appearing appendix. Abdominal ultrasound shows no mobile gallstones or evidence of cholecystitis.) <Rj Olivares - Last Filed: 01/21/21 12:27> - Lab Data Result diagrams: 01/22/21 08:00 01/22/21 08:00 <Porfirio Luis - Last Filed: 01/24/21 13:23> - Lab Data Lab Results 01/21/21 01/21/21 01/21/21 Range/Units 04:04 04:04 04:04 WBC 14.3 H (3.8-10.6) k/uL RBC 3.50 L (3.80-5.40) m/uL Hgb 11.6 (11.4-16.0) gm/dL Hct 33.4 L (34.0-46.0) % MCV 95.6 (80.0-100.0) fL MCH 33.3 (25.0-35.0) pg MCHC 34.8 (31.0-37.0) g/dL RDW 12.7 (11.5-15.5) % Plt Count 175 (150-450) k/uL MPV 8.7 Neutrophils % 85 % Lymphocytes % 11 % Monocytes % 2 % Eosinophils % 2 % Basophils % 1 % Neutrophils # 12.1 H (1.3-7.7) k/uL Lymphocytes # 1.5 (1.0-4.8) k/uL Monocytes # 0.3 (0-1.0) k/uL Eosinophils # 0.2 (0-0.7) k/uL Basophils # 0.1 (0-0.2) k/uL Sodium 134 L (137-145) mmol/L Potassium 3.8 (3.5-5.1) mmol/L Chloride 104 (98-107) mmol/L Carbon Dioxide 22 (22-30) mmol/L Anion Gap 8 mmol/L BUN 13 (7-17) mg/dL Creatinine 0.56 (0.52-1.04) mg/dL Est GFR (CKD-EPI)AfAm >90 (>60 ml/min/1.73 sqM) Est GFR (CKD-EPI)NonAf >90 (>60 ml/min/1.73 sqM) Glucose 114 H (74-99) mg/dL Calcium 9.2 (8.4-10.2) mg/dL Total Bilirubin 0.6 (0.2-1.3) mg/dL AST 16 (14-36) U/L ALT 11 (4-34) U/L Alkaline Phosphatase 66 (38-126) U/L C-Reactive Protein 17.0 H (<1.0) mg/dL Total Protein 6.7 (6.3-8.2) g/dL Albumin 3.9 (3.5-5.0) g/dL Amylase <30 L (30-110) U/L Lipase 27 (23-300) U/L HCG, Quant <2.4 mIU/mL Urine Color Urine Appearance (Clear) Urine pH (5.0-8.0) Ur Specific Jackson (1.001-1.035) Urine Protein (Negative) Urine Glucose (UA) (Negative) Urine Ketones (Negative) Urine Blood (Negative) Urine Nitrite (Negative) Urine Bilirubin (Negative) Urine Urobilinogen (<2.0) mg/dL Ur Leukocyte Esterase (Negative) Urine WBC (0-5) /hpf Ur Squamous Epith Cells (0-4) /hpf Amorphous Sediment (None) /hpf Urine Mucus (None) /hpf Urine HCG, Qual (Not Detectd) Chlamydia Source Chlamydia DNA (PCR) (Neg,Equiv) N. gonorrhoeae Source N.gonorrhoeae DNA Probe (Neg,Equiv) Trichomonas Ag (Rapid) (Negative) 01/21/21 01/21/21 01/21/21 Range/Units 07:40 07:40 09:55 WBC (3.8-10.6) k/uL RBC (3.80-5.40) m/uL Hgb (11.4-16.0) gm/dL Hct (34.0-46.0) % MCV (80.0-100.0) fL MCH (25.0-35.0) pg MCHC (31.0-37.0) g/dL RDW (11.5-15.5) % Plt Count (150-450) k/uL MPV Neutrophils % % Lymphocytes % % Monocytes % % Eosinophils % % Basophils % % Neutrophils # (1.3-7.7) k/uL Lymphocytes # (1.0-4.8) k/uL Monocytes # (0-1.0) k/uL Eosinophils # (0-0.7) k/uL Basophils # (0-0.2) k/uL Sodium (137-145) mmol/L Potassium (3.5-5.1) mmol/L Chloride (98-107) mmol/L Carbon Dioxide (22-30) mmol/L Anion Gap mmol/L BUN (7-17) mg/dL Creatinine (0.52-1.04) mg/dL Est GFR (CKD-EPI)AfAm (>60 ml/min/1.73 sqM) Est GFR (CKD-EPI)NonAf (>60 ml/min/1.73 sqM) Glucose (74-99) mg/dL Calcium (8.4-10.2) mg/dL Total Bilirubin (0.2-1.3) mg/dL AST (14-36) U/L ALT (4-34) U/L Alkaline Phosphatase (38-126) U/L C-Reactive Protein (<1.0) mg/dL Total Protein (6.3-8.2) g/dL Albumin (3.5-5.0) g/dL Amylase (30-110) U/L Lipase (23-300) U/L HCG, Quant mIU/mL Urine Color Yellow Urine Appearance Turbid H (Clear) Urine pH 6.5 (5.0-8.0) Ur Specific Jackson 1.028 (1.001-1.035) Urine Protein 1+ H (Negative) Urine Glucose (UA) Negative (Negative) Urine Ketones Negative (Negative) Urine Blood Negative (Negative) Urine Nitrite Negative (Negative) Urine Bilirubin Negative (Negative) Urine Urobilinogen <2.0 (<2.0) mg/dL Ur Leukocyte Esterase Large H (Negative) Urine WBC 35 H (0-5) /hpf Ur Squamous Epith Cells 3 (0-4) /hpf Amorphous Sediment Rare H (None) /hpf Urine Mucus Many H (None) /hpf Urine HCG, Qual Not Detected (Not Detectd) Chlamydia Source Chlamydia DNA (PCR) (Neg,Equiv) N. gonorrhoeae Source N.gonorrhoeae DNA Probe (Neg,Equiv) Trichomonas Ag (Rapid) Negative (Negative) 01/21/21 Range/Units 09:55 WBC (3.8-10.6) k/uL RBC (3.80-5.40) m/uL Hgb (11.4-16.0) gm/dL Hct (34.0-46.0) % MCV (80.0-100.0) fL MCH (25.0-35.0) pg MCHC (31.0-37.0) g/dL RDW (11.5-15.5) % Plt Count (150-450) k/uL MPV Neutrophils % % Lymphocytes % % Monocytes % % Eosinophils % % Basophils % % Neutrophils # (1.3-7.7) k/uL Lymphocytes # (1.0-4.8) k/uL Monocytes # (0-1.0) k/uL Eosinophils # (0-0.7) k/uL Basophils # (0-0.2) k/uL Sodium (137-145) mmol/L Potassium (3.5-5.1) mmol/L Chloride (98-107) mmol/L Carbon Dioxide (22-30) mmol/L Anion Gap mmol/L BUN (7-17) mg/dL Creatinine (0.52-1.04) mg/dL Est GFR (CKD-EPI)AfAm (>60 ml/min/1.73 sqM) Est GFR (CKD-EPI)NonAf (>60 ml/min/1.73 sqM) Glucose (74-99) mg/dL Calcium (8.4-10.2) mg/dL Total Bilirubin (0.2-1.3) mg/dL AST (14-36) U/L ALT (4-34) U/L Alkaline Phosphatase (38-126) U/L C-Reactive Protein (<1.0) mg/dL Total Protein (6.3-8.2) g/dL Albumin (3.5-5.0) g/dL Amylase (30-110) U/L Lipase (23-300) U/L HCG, Quant mIU/mL Urine Color Urine Appearance (Clear) Urine pH (5.0-8.0) Ur Specific Jackson (1.001-1.035) Urine Protein (Negative) Urine Glucose (UA) (Negative) Urine Ketones (Negative) Urine Blood (Negative) Urine Nitrite (Negative) Urine Bilirubin (Negative) Urine Urobilinogen (<2.0) mg/dL Ur Leukocyte Esterase (Negative) Urine WBC (0-5) /hpf Ur Squamous Epith Cells (0-4) /hpf Amorphous Sediment (None) /hpf Urine Mucus (None) /hpf Urine HCG, Qual (Not Detectd) Chlamydia Source Vagina Chlamydia DNA (PCR) Negative (Neg,Equiv) N. gonorrhoeae Source Vagina N.gonorrhoeae DNA Probe Positive A (Neg,Equiv) Trichomonas Ag (Rapid) (Negative) Disposition Is patient prescribed a controlled substance at d/c from ED?: No Decision Time: 12:28 <Rj Olivares - Last Filed: 01/21/21 12:27> <Porfirio Luis - Last Filed: 01/24/21 13:23> Clinical Impression: Abdominal pain, Pelvic pain Disposition: ADMITTED IP TO THIS HOSP
[2021-01-21 04:24] LABS: Basophils # (A) 0.1 k/uL (0-0.2); Basophils % (A) 1 %; Eosinophils # (A) 0.2 k/uL (0-0.7); Eosinophils % (A) 2 %; HCT 33.4 % (34.0-46.0); HGB 11.6 gm/dL (11.4-16.0); Lymphocytes # (A) 1.5 k/uL (1.0-4.8); Lymphocytes % (A) 11 %; MCH 33.3 pg (25.0-35.0); MCHC 34.8 g/dL (31.0-37.0); MCV 95.6 fL (80.0-100.0); Mean Platelet Volume 8.7; Monocytes # (A) 0.3 k/uL (0-1.0); Monocytes % (A) 2 %; Neutrophils # (A) 12.1 k/uL (1.3-7.7); Neutrophils % (A) 85 %; Platelet Count 175 k/uL (150-450); RDW 12.7 % (11.5-15.5); WBC 14.3 k/uL (3.8-10.6)
--- NOTE | 2021-01-21 04:40 | CT ---
EXAMINATION TYPE: CT abdomen pelvis wo con DATE OF EXAM: 01/21/2021 COMPARISON: None HISTORY: periumbilical pain CT DLP: 640.2 mGycm Automated exposure control for dose reduction was used. Images obtained from the diaphragm to the floor the pelvis without contrast. Lung bases are clear. There is no pleural effusion. Heart size is normal. There is no pericardial eff usion. Liver spleen stomach pancreas gallbladder appear normal. The bile ducts are not dilated. There is no adrenal mass. Kidneys have normal size. There is no hydronephrosis. Ureters are not dilat ed. There is no retroperitoneal adenopathy. Bladder distends smoothly. There is no inguinal hernia. T here is no free fluid in the pelvis. Uterus is anteverted. Lumbar vertebra have normal alignment. Pos terior elements are intact. There is no compression fracture. There is no evidence of a pelvic mass. The bony pelvis is intact. There is no mesenteric edema. There is no ascites or free air. There is no sign of a bowel obstructio n. Appendix is low in the pelvis along the pelvic sidewall. Appendix appears normal. IMPRESSION: . Normal appendix. Negative CT scan abdomen and pelvis.
[2021-01-21 05:32] LABS: ALT 11 U/L (4-34); AST 16 U/L (14-36); African American GFR (CKD) >90 (>60 ml/min/1.73 sqM); Albumin 3.9 g/dL (3.5-5.0); Alkaline Phosphatase 66 U/L (38-126); Amylase <30 U/L (30-110); Anion Gap 8 mmol/L; Blood Urea Nitrogen 13 mg/dL (7-17); Calcium 9.2 mg/dL (8.4-10.2); Carbon Dioxide 22 mmol/L (22-30); Chloride 104 mmol/L (98-107); Glucose 114 mg/dL (74-99); Lipase 27 U/L (23-300); Non-African American GFR(CKD) >90 (>60 ml/min/1.73 sqM); Potassium 3.8 mmol/L (3.5-5.1); Sodium 134 mmol/L (137-145); Total Bilirubin 0.6 mg/dL (0.2-1.3); Total Protein 6.7 g/dL (6.3-8.2)
--- NOTE | 2021-01-21 07:42 | US ---
EXAMINATION TYPE: US abdomen limited DATE OF EXAM: 01/21/2021 COMPARISON: CT done same day CLINICAL HISTORY: attention RUQ. Right upper quadrant pain. EXAM MEASUREMENTS: Liver Length: 15.1 cm Gallbladder Wall: 0.2 cm CBD: 0.3 cm Right Kidney: 10.3 x 5.7 x 6.2 cm Pancreas: visualized portions wnl Liver: wnl Gallbladder: No stones seen Evidence for sonographic Jones's sign: Yes CBD: wnl Right Kidney: No hydronephrosis or masses seen Visualized pancreas is within normal limits. Visualized liver is slightly heterogeneous without mass or ductal dilatation. Gallbladder identified without shadowing mobile gallstones. No surrounding flui d or abnormal wall thickening. No right-sided hydronephrosis noted. IMPRESSION: No shadowing mobile gallstones or ultrasound evidence for acute cholecystitis.
[2021-01-21 08:35] LABS: Amorphous Sediment,Urine Rare /hpf; Appearance,Urine Turbid (Clear); Bilirubin,Urine Negative (Negative); Blood,Urine Negative (Negative); Color,Urine Yellow; Glucose,Urine (UA) Negative (Negative); Ketones,Urine Negative (Negative); Leukocyte Esterase,Urine Large (Negative); Mucus,Urine Many /hpf; Nitrite,Urine Negative (Negative); PH, Urine 6.5 (5.0-8.0); Protein,Urine 1+ (Negative); Specific Gravity,Urine 1.028 (1.001-1.035); Squamous Epithelial Cell,Urine 3 /hpf (0-4); Urobilinogen,Urine <2.0 mg/dL (<2.0); WBC,Urine 35 /hpf (0-5)
[2021-01-21] MEDS ORDERED: KETOROLAC 15 MG/ML 1 ML VIAL IVP STA (09:53)
--- NOTE | 2021-01-21 12:03 | US ---
EXAMINATION TYPE: US transvaginal DATE OF EXAM: 01/21/2021 COMPARISON: NONE CLINICAL HISTORY: Pelvic pain, right-sided. right pelvic pain, , c-sections TECHNIQUE: TV. Transvaginal sonographic images Date of LMP: 01/21/2021 EXAM MEASUREMENTS: Uterus: 8.3 x 5.6 x 4.4 cm Endometrial Stripe: 0.3 cm Right Ovary: 2.9 x 1.9 cm Left Ovary: 2.6 x 1.5 x 2..1 cm 1. Uterus: Anteverted wnl 2. Endometrium: wnl 3. Right Ovary: multiple follicles under 1cm 4. Left Ovary: 1.4cm follicle seen Spectral, color and waveform doppler imaging shows good arterial and venous flow within the ovaries ; there is no evidence for ovarian torsion. 5. Bilateral Adnexa: non-peristalsing hypoechoic area noted posterior to right ovary, does not appea r to be coming from ovary, possible fallopian pathology, versus other etiology 6. Posterior cul-de-sac: wnl IMPRESSION: 1. There is a nonspecific area of hypoechoic lesion difficult to determine etiology based on the ultr asound seen posterior to the right ovary, possibly related to bowel. Underlying mass or adnexal lesio n not excluded. Recommend MRI of the pelvis.
[2021-01-21] MEDS ORDERED: ONDANSETRON 4 MG/2 ML VIAL IVP PRN (12:30)
[2021-01-21] MEDS ORDERED: NALOXONE 0.4 MG/ML 1 ML VIAL IV PRN (12:30)
[2021-01-21] MEDS: SODIUM CHLORIDE 0.9% 1,000 ML IV SCH (12:45)
--- NOTE | 2021-01-21 16:28 | MR ---
EXAMINATION TYPE: MR pelvis wo/w con DATE OF EXAM: 01/21/2021 COMPARISON: CT abdomen and pelvis and transvaginal pelvic ultrasound earlier today HISTORY: Extreme right side pain for 2 days. CONTRAST: Standard multiplanar, multisequence MRI departmental protocol images were obtained without contrast a nd with 8 mL intravenous Gadavist gadolinium contrast. FINDINGS: Anteverted uterus redemonstrated. No fluid in pelvic cul-de-sac noted. Ovaries are symmetric and normal in size seen best on axial image 19 with scattered small peripheral follicles. Findings correlate with same day ultrasound. No suspicious adnexal masses identified. Nondilated small and large bowel loops redemonstrated. Visualized osseous structures are intact. No c oncerning pelvic adenopathy seen. IMPRESSION: Redemonstration of normal size right ovary. No suspicious adnexal mass, finding on ultras ound favors debris filled distal small bowel loop.
[2021-01-21] MEDS: HYDROmorphone 1 MG/ML 1 ML SYRINGE IVP PRN (16:43)
[2021-01-21 16:49] LABS: Glucose,Whole Blood 99 mg/dL (75-99)
[2021-01-22] MEDS: HYDROmorphone 1 MG/ML 1 ML SYRINGE IVP PRN (00:49)
[2021-01-22] MEDS: SODIUM CHLORIDE 0.9% 1,000 ML IV SCH ×3 (00:50→11:06)
[2021-01-22 06:12] VITALS: RESP 18
[2021-01-22] MEDS: HYDROmorphone 0.5 MG/0.5 ML SYRINGE IVP PRN ×2 (06:13→11:42)
--- NOTE | 2021-01-22 08:04 | P.HPIM ---
History of Present Illness This is a pleasant 30 years old female with no significant past medical history, he has history of depression and anxiety, she is a patient of Dr. Arzate. She presents because of abdominal pain of 2 days' duration, and the lower abdo men and more on the right side. [place] Like severe and like labor to the patient. She thought it is related to her constipation so she started some pepto but that did not help, She woke up with more severe pain so she decided to come to emergency room. She has bowel movement every 1-2 days which is regular for her, last bowel movement was 1 day Prior to coming to the hospital. Currently this morning her pain is better at 4/10 in severity. No nausea vomiting. No headache or dizziness. She denies chest pain or dyspnea. No fever. She feels agrees and wants to advance her diet, currently she is on a clear liquid diet She did not have discomfort with urination, no dysuria or urgency or hesitancy but she's been less than usual. She smokes about 10 cigarettes per day, she is counseled to quit smoking and she agrees but she declined nicotine patch. She denies alcohol or illicit drugs. She denies signs and symptoms of depression or suicidal ideation Hemodynamically she is a stable Labs showing mild leukocytosis of 14.3. Hemoglobin 11.6 and platelet 175. BMP and liver enzymes are unremarkable. Lipase normal at 27. Urinalysis is suspicious for infection. Rapid antigen is negative trichomonas CT of the abdomen and pelvis without contrast showing normal appendix with negative scan results Abdominal ultrasound showing no gallstones or acute cholecystitis. Transvaginal ultrasound: Nonspecific area of hypoechoic lesion difficult to determine etiology based on the ultrasound imaging, seen posterior to the right ovary, possibly related to bowel. Underlying mass or adnexal lesion not excluded and they recommended MRI of the pelvis which is ordered by emergency room doctor. Results showing right normal ovary, no suspicious adnexal mass. Findings on ultrasound favors debris filled distal small bowel Her senior marketing manager Dr. Tamez has been consulted Review of Systems CONSTITUTIONAL: No fever, no malaise, no fatigue. HEENT: No recent visual problems or hearing problems. Denied any sore throat. CARDIOVASCULAR: No orthopnea, PND, no palpitations, no syncope. PULMONARY: No shortness of breath, no cough, no hemoptysis. GASTROINTESTINAL: No diarrhea, no nausea, no vomiting. Normoactive bowel sounds. NEUROLOGICAL: No headaches, no weakness, no numbness. HEMATOLOGICAL: Denies any bleeding or petechiae. GENITOURINARY: Denies any burning micturition, frequency, or urgency. MUSCULOSKELETAL/RHEUMATOLOGICAL: Denies any joint pain, swelling, or any muscle pain. ENDOCRINE: Denies any polyuria or polydipsia. Past Medical History Past Medical History: No Reported History Additional Past Medical History / Comment(s): SCREENING FOR GASTRIC BYPASS History of Any Multi-Drug Resistant Organisms: None Reported Past Surgical History: Section Additional Past Surgical History / Comment(s): LEEP Past Anesthesia/Blood Transfusion Reactions: No Reported Reaction Past Psychological History: ADD/ADHD, Anxiety, Depression Smoking Status: Current every day smoker Past Alcohol Use History: None Reported Past Drug Use History: None Reported - Past Family History Mother History Unknown: Yes Family Medical History: No Reported History Medications and Allergies Home Medications Medication Instructions Recorded Confirmed Type No Known Home Medications 01/21/21 01/21/21 History Allergies Allergy/AdvReac Type Severity Reaction Status Date / Time No Known Allergies Allergy Verified 01/21/21 08:42 Physical Exam Vitals: Vital Signs Temp Pulse Resp BP Pulse Ox 01/22/21 06:00 98.8 F 92 18 106/74 01/22/21 00:00 99 16 103/58 98 01/21/21 18:39 96 18 124/71 97 01/21/21 16:48 101 H 16 120/79 100 01/21/21 16:42 98.8 F 68 16 109/56 97 01/21/21 12:45 98 F 89 16 104/71 98 GENERAL: The patient is alert and oriented x3, not in any acute distress. Well developed, well nourished. HEENT: Pupils are round and equally reacting to light. EOMI. No scleral icterus. No conjunctival pallor. Normocephalic, atraumatic. No pharyngeal erythema. No thyromegaly. CARDIOVASCULAR: S1 and S2 present. No murmurs, rubs, or gallops. PULMONARY: Chest is clear to auscultation, no wheezing or crackles. -ABDOMEN: Soft, right lower quadrant versus right suprapubic tenderness, no rebound tenderness or guarding, nondistended, normoactive bowel sounds. No palpable organomegaly. MUSCULOSKELETAL: No joint swelling or deformity. EXTREMITIES: No cyanosis, clubbing, or pedal edema. NEUROLOGICAL: Gross neurological examination did not reveal any focal deficits. SKIN: No rashes. No petechiae Results CBC & Chem 7: 01/21/21 04:04 01/21/21 04:04 Labs: Abnormal Lab Results - Last 24 Hours (Table) 01/21/21 Range/Units 07:40 Urine Appearance Turbid H (Clear) Urine Protein 1+ H (Negative) Ur Leukocyte Esterase Large H (Negative) Urine WBC 35 H (0-5) /hpf Amorphous Sediment Rare H (None) /hpf Urine Mucus Many H (None) /hpf Microbiology - Last 24 Hours (Table) 01/21/21 09:55 Genital Culture - Preliminary Cervix Assessment and Plan Assessment: Acute urinary tract infection with abdominal pain Constipation Abdominal pain secondary to above Nicotine dependence History of depression and anxiety, not an active issue Plan: This is a pleasant 30 years old female who presents with UTI, constipation and abdominal pain. Continue with ceftriaxone and follow-up urine culture. Advance diet to regular and start bowel regimen and laxative Continue with IV hydration Follow-up GC study and [employer] consult Labs and medication were reviewed.. Continue same treatment. Continue with symptomatic treatment. Resume home medication. Monitor lytes and vitals. DVT and GI prophylaxis. Further recommendationsas per clinical course of the patient DVT prophylaxis: Subcutaneous heparin GI Prophylaxis: Pepcid PT/OT: Pending Prognosis is guarded
[2021-01-22 08:08] VITALS: TEMP 98
[2021-01-22] MEDS ORDERED: DOCUSATE 100 MG CAP PO SCH (09:00)
[2021-01-22] MEDS ORDERED: HEPARIN SODIUM,PORCINE/PF 5,000 UNIT/0.5 ML SYRINGE SQ SCH (09:00)
[2021-01-22] MEDS ORDERED: FAMOTIDINE 20 MG/2 ML VIAL IV SCH (09:00)
[2021-01-22 11:46] LABS: Basophils # (A) 0.04 X 10*3/uL (0.00-0.10); Basophils % (A) 0.4 %; Eosinophils # (A) 0.24 X 10*3/uL (0.04-0.35); Eosinophils % (A) 2.3 %; HCT 34.3 % (37.2-46.3); HGB 11.1 g/dL (12.0-15.0); Lymphocytes # (A) 1.79 X 10*3/uL (0.90-5.00); Lymphocytes % (A) 17.4 %; MCH 31.9 pg (27.0-32.0); MCHC 32.4 g/dL (32.0-37.0); MCV 98.6 fL (80.0-97.0); Mean Platelet Volume 11.4 fL (9.5-12.2); Monocytes # (A) 0.69 X 10*3/uL (0.20-1.00); Monocytes % (A) 6.7 %; Neutrophils # (A) 7.45 X 10*3/uL (1.80-7.70); Neutrophils % (A) 72.7 %; Platelet Count 180 X 10*3/uL (140-440); RBC 3.48 X 10*6/uL (4.10-5.20); RDW 12.5 % (11.5-14.5); WBC 10.26 X 10*3/uL (4.50-10.00)
[2021-01-22 11:58] LABS: African American GFR (CKD) 143.8 (60.0-200.0); Albumin 3.8 g/dL (3.80-4.90); Albumin/Globulin Ratio 1.46 (1.60-3.17); Anion Gap 6.2 mmol/L (4.00-12.00); BUN/Creat Ratio 18.33 Ratio (12.00-20.00); Calcium 8.6 mg/dL (8.7-10.3); Carbon Dioxide 27.8 mmol/L (21.6-31.8); Globulin 2.6 g/dL (1.6-3.3); Potassium 4.1 mmol/L (3.5-5.5); Total Bilirubin 0.3 mg/dL (0.2-1.2); Total Protein 6.4 g/dL (6.2-8.2)
--- NOTE | 2021-01-22 12:58 | P.OBCN ---
History of Present Illness Consult date: 01/22/21 Requesting physician: Jim Pruitt Reason for consult: pelvic pain Chief complaint: Abdominal pain x 2 days History of present illness: 30 Year old who has 2 days of severe abdominal pain, "like I'm in labor". Pain is around her umbilicus but also in the right lower quadrant and left upper quadrant. Her last menstrual period was 1 week ago and lasted 5 days. That she reports this was normal with no unusual bleeding or other symptoms. She has no history of gynecologic concerns. She did have a baby by section approximately 8 months ago. This was uncomplicated. She denies vaginal bleeding, vaginal discharge, genital lesions, dysuria, hematuria, blood in the stools. She does have a history of chronic constipation and her last bowel movement was 1 day ago. She reports her pain is worse when she is straining to have a bowel movement. She does have mild reflux. She denies nausea or vomiting. Pelvic ultrasound shows uterus measuring 8.3 x 5.6 x 4.4 cm with a thin endometrial stripe. Right ovary 2.9 x 1.9 cm, left ovary 2.6 x 1.5 cm. No evidence of torsion. There is a hypoechoic area posterior to the right ovary. There is no free fluid in the cul-de-sac. MRI to specifically address findings on ultrasound are normal. Specifically the normal right ovary and adnexa. Findings likely secondary to debris in the distal small bowel loop. CT of abdomen and pelvis ruled out appendicitis. Cervical cultures are pending. Patient has a normal white blood cell count. Review of Systems Constitutional: Reports fatigue, Denies anorexia, Denies chills, Denies fever Cardiovascular: Denies chest pain, Denies shortness of breath Respiratory: Denies cough Gastrointestinal: Reports abdominal pain, Reports constipation, Reports dyspepsia, Reports heartburn, Denies BRBPR, Denies change in bowel habits, Denies diarrhea, Denies excessive gas, Denies hematemesis, Denies loss of appetite, Denies melena, Denies nausea, Denies vomiting Genitourinary: Denies abnormal vaginal bleeding, Denies dysuria, Denies genital sores, Denies hematuria, Denies menorrhagia, Denies urgency, Denies vaginal discharge, Denies vaginal itching, Denies vaginal odor Menstruation: Reports period normal Musculoskeletal: Denies low back pain Hematologic/Lymphatic: Denies easy bleeding, Denies easy bruising Past Medical History Past Medical History: No Reported History Additional Past Medical History / Comment(s): SCREENING FOR GASTRIC BYPASS History of Any Multi-Drug Resistant Organisms: None Reported Past Surgical History: Section Additional Past Surgical History / Comment(s): LEEP Past Anesthesia/Blood Transfusion Reactions: No Reported Reaction Past Psychological History: ADD/ADHD, Anxiety, Depression Smoking Status: Current every day smoker Past Alcohol Use History: None Reported Past Drug Use History: None Reported - Past Family History Mother History Unknown: Yes Family Medical History: No Reported History Medications and Allergies Home Medications Medication Instructions Recorded Confirmed Type No Known Home Medications 01/21/21 01/21/21 History Allergies Allergy/AdvReac Type Severity Reaction Status Date / Time No Known Allergies Allergy Verified 01/21/21 08:42 Exam Vital Signs Temp Pulse Pulse Resp BP BP Pulse Ox 01/22/21 08:00 98 F 111 H 18 108/74 88 L 01/22/21 06:00 98.8 F 92 18 106/74 01/22/21 00:00 99 16 103/58 98 01/21/21 18:39 96 18 124/71 97 01/21/21 16:48 101 H 16 120/79 100 01/21/21 16:42 98.8 F 68 16 109/56 97 01/21/21 12:45 98 F 89 16 104/71 98 Intake and Output 01/21/21 01/22/21 01/22/21 22:59 06:59 14:59 Intake Total 120 Balance 120 Intake: Oral 120 This is uncomfortable-appearing young female in no acute distress. HEENT exam is unremarkable with no palpable thyromegaly. Her breathing is la bored. Heart is of regular rate. The abdomen is soft and not distended. She has pain to light palpation in the left upper quadrant and right lower quadrant. She has no rebound or guarding. She has no suprapubic pain. She is a well- healed Pfannenstiel incision. She has no CVA tenderness. She does have increased in abdominal pain when moving in the bed, specifically sitting forward. The patient declines pelvic examination today. Reports she had a pelvic exam in the emergency room. Results Result Diagrams: 01/22/21 08:00 01/22/21 08:00 Abnormal Lab Results - Last 24 Hours (Table) 01/22/21 01/22/21 Range/Units 08:00 08:00 WBC 10.26 H (4.50-10.00) X 10*3/uL RBC 3.48 L (4.10-5.20) X 10*6/uL Hgb 11.1 L (12.0-15.0) g/dL Hct 34.3 L (37.2-46.3) % MCV 98.6 H (80.0-97.0) fL Immature Gran # 0.05 H (0.00-0.04) X 10*3/uL Calcium 8.6 L (8.7-10.3) mg/dL Albumin/Globulin Ratio 1.46 L (1.60-3.17) g/dL Microbiology - Last 24 Hours (Table) 01/21/21 09:55 Genital Culture - Preliminary Cervix CT scan - abdomen: report reviewed CT scan - pelvis: report reviewed (Pelvic MRI and pelvic ultrasound reviewed.) Assessment and Plan (1) Abdominal pain Narrative/Plan: This is a 30 year old woman with non-specific abdominal pain localizing to the left upper quadrant and right lower quadrant on examination. Complete imaging of the pelvis has been undertaken including transvaginal pelvic ultrasound, abdominal/pelvic computed tomography scan, pelvic MRI. There is no acute pelvic processes noted. Specifically no adnexal mass, blood in the pelvis, evidence of torsion or other abnormalities. Pelvic cultures are pending. I do not believe this is an acute gynecologic process. I will follow along. Please state contact me if have any further questions. Current Visit: Yes Status: Acute Code(s): R10.9 - UNSPECIFIED ABDOMINAL PAIN SNOMED Code(s): 81998811 Time with Patient: Greater than 30
[2021-01-22 15:15] VITALS: BP 105/60; PULSE 98
[2021-01-22] MEDS ORDERED: polyethylene glycoL 3350 17 GM POWD.PACK PO SCH (21:00)
--- NOTE | 2021-01-23 06:45 | P.HPIM ---
History of Present Illness I came to see the patient and she was in the MRI, follow-up with the patient Past Medical History Past Medical History: No Reported History Additional Past Medical History / Comment(s): SCREENING FOR GASTRIC BYPASS History of Any Multi-Drug Resistant Organisms: None Reported Past Surgical History: Section Additional Past Surgical History / Comment(s): LEEP Past Anesthesia/Blood Transfusion Reactions: No Reported Reaction Past Psychological History: ADD/ADHD, Anxiety, Depression Smoking Status: Current every day smoker Past Alcohol Use History: None Reported Past Drug Use History: None Reported - Past Family History Mother History Unknown: Yes Family Medical History: No Reported History Medications and Allergies Home Medications Medication Instructions Recorded Confirmed Type No Known Home Medications 01/21/21 01/21/21 History Allergies Allergy/AdvReac Type Severity Reaction Status Date / Time No Known Allergies Allergy Verified 01/21/21 08:42 Physical Exam Vitals: Vital Signs Temp Pulse Resp BP Pulse Ox 01/21/21 12:45 98 F 89 16 104/71 98 01/21/21 07:00 82 18 116/65 95 01/21/21 05:10 87 18 118/76 95 01/21/21 03:37 116/70 01/21/21 03:13 98.1 F 91 20 98 Intake and Output 01/20/21 01/21/21 01/21/21 22:59 06:59 14:59 Other: Weight 79.379 kg Results CBC & Chem 7: 01/22/21 08:00 01/22/21 08:00 Labs: Abnormal Lab Results - Last 24 Hours (Table) 01/21/21 01/21/21 01/21/21 Range/Units 04:04 04:04 07:40 WBC 14.3 H (3.8-10.6) k/uL RBC 3.50 L (3.80-5.40) m/uL Hct 33.4 L (34.0-46.0) % Neutrophils # 12.1 H (1.3-7.7) k/uL Sodium 134 L (137-145) mmol/L Glucose 114 H (74-99) mg/dL C-Reactive Protein 17.0 H (<1.0) mg/dL Amylase <30 L (30-110) U/L Urine Appearance Turbid H (Clear) Urine Protein 1+ H (Negative) Ur Leukocyte Esterase Large H (Negative) Urine WBC 35 H (0-5) /hpf Amorphous Sediment Rare H (None) /hpf Urine Mucus Many H (None) /hpf
--- NOTE | 2021-01-23 06:46 | P.DS ---
Providers Date of admission: 01/21/21 12:30 Attending physician: Jim Pruitt MD Consults: 01/21/21 12:30 Consult Physician Urgent Consulting Provider: Paul Tamez Consult Reason/Comments: pelvic pain Do you want consulting provider notified?: Yes Primary care physician: Edil Mendes [facility] Course: Diagnoses Acute urinary tract infection with abdominal pain Constipation Abdominal pain secondary to above Nicotine dependence History of depression and anxiety, not an active issue Hospital course: Patient left AMA before I had a chance to see the patient or talk to her again Based upon my evaluation patient has capacity to make medical decisions for herself Plan - Discharge Summary Discharge Rx Participant: Yes New Discharge Prescriptions: No Action No Known Home Medications Discharge Medication List No Known Home Medications 01/21/21 [History] Follow up Appointment(s)/Referral(s): Vaughn Solo MD [Primary Care Provider] - 1-2 days Discharge Disposition: Left Against Medical Advice
[2021-01-23 09:13] LABS: C. trachomatis,PCR Negative (Neg,Equiv); Chlamydia trachomatis Source Vagina; N. gonorrhoeae,PCR Positive (Neg,Equiv); Neisseria Source Vagina
== END 2021-01-22 18:47 | disposition left against medical advice (07) ==
LOC: EC 03:03 → 6PED 12:30 → 6NMEDSUR 13:41
PROVIDERS: ADMIT Internal Medicine; ATTEND Internal Medicine
DX: N39.0 Urinary tract infection, site not specified (principal); K59.00 Constipation, unspecified; N85.4 Malposition of uterus; F32.9 Major depressive disorder, single episode, unspecified; F41.9 Anxiety disorder, unspecified; K21.9 Gastro-esophageal reflux disease without esophagitis; F90.9 Attention-deficit hyperactivity disorder, unspecified type; F17.210 Nicotine dependence, cigarettes, uncomplicated; Z71.6 Tobacco abuse counseling; Z98.891 History of uterine scar from previous surgery; Z98.890 Other specified postprocedural states; Z53.29 Procedure and treatment not carried out because of patient's decision for other reasons
CPT/HCPCS: 96376 ×3; 96372; 96375 ×2; 96365; 99285; 36415; 80053 ×2; 82150; 83690; 85025 ×2; 86140; 81001; 81025; 84702; 87808; 87491; 87591; 87070; 93975; 76705; 76830; 74176; 72197; G0378 ×3; J0696 ×2; J1170 ×3; J1885; J1644; A9585

== ENCOUNTER 2021-11-05 23:50 | Outpatient (CLI) | payer OTHER ==
[2021-11-06 01:06] LABS: Basophils # (A) 0.1 k/uL (0-0.2); Basophils % (A) 1 %; Eosinophils # (A) 0.2 k/uL (0-0.7); Eosinophils % (A) 2 %; HCT 34.1 % (34.0-46.0); HGB 11.4 gm/dL (11.4-16.0); Lymphocytes # (A) 1.8 k/uL (1.0-4.8); Lymphocytes % (A) 17 %; MCH 33.1 pg (25.0-35.0); MCHC 33.6 g/dL (31.0-37.0); MCV 98.6 fL (80.0-100.0); Mean Platelet Volume 9.3; Monocytes # (A) 0.5 k/uL (0-1.0); Monocytes % (A) 5 %; Neutrophils # (A) 7.7 k/uL (1.3-7.7); Neutrophils % (A) 74 %; Platelet Count 152 k/uL (150-450); RBC 3.46 m/uL (3.80-5.40); RDW 12.6 % (11.5-15.5); WBC 10.4 k/uL (3.8-10.6)
[2021-11-06 01:59] LABS: Amphetamine Screen,Urine Not Detected (NotDetected); Barbiturate Screen,Urine Not Detected (NotDetected); Benzodiazepines Screen,Urine Not Detected (NotDetected); Cocaine Screen,Urine Not Detected (NotDetected); Methadone Screen, Urine Not Detected (NotDetected); Opiate Screen,Urine Not Detected (NotDetected); Oxycodone Screen, Urine Not Detected (NotDetected); Phencyclidine Screen,Urine Not Detected (NotDetected); Tricyclic Antidepressant,Urine Not Detected (NotDetected); Urn Cannabinoid Scrn Not Detected (NotDetected)
[2021-11-06 02:23] VITALS: BP 130/74; PULSE 99; RESP 16; TEMP 98.8
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
== END 2021-11-06 01:30 | disposition home or self-care (01) ==
LOC: FBPOP 23:50
PROVIDERS: ATTEND Obstetrics & Gynecology
DX: O26.892 Other specified pregnancy related conditions, second trimester (principal); Z3A.22 22 weeks gestation of pregnancy; Y04.0XXA Assault by unarmed brawl or fight, initial encounter
CPT/HCPCS: 86900; 86901; 85025; 86850; 80306; 76805; G0463; 99213

== ENCOUNTER 2021-11-07 14:28 | Outpatient (CLI) | payer OTHER ==
[2021-11-07] MEDS ORDERED: LACTATED RINGERS 1,000 ML IV ONE (14:49)
--- NOTE | 2021-11-07 15:53 | US ---
EXAMINATION TYPE: US OB limited DATE OF EXAM: 11/07/2021 COMPARISON: 11/06/21 CLINICAL HISTORY: PT fall on abdomen, vaginal bleeding. Pt fell on abdomen, vaginal bleeding EXAM PERFORMED: Transabdominal (TA) GESTATIONAL AGE / DATING No growth performed on today?s study per ordering physician SURVEY PLACENTA: Posterior PREVIA: No Previa Ultrasound evidence of abruption? KATHERINE: 11.4 cm Normal Ultrasound evidence of premature rupture of membranes? No PRESENTATION: Vertex LIE: Longitudinal HEART RATE: 147 bpm RHYTHM: Normal IMPRESSION: Limited exam shows no sign of a complicating process.
[2021-11-07 16:18] LABS: Basophils % (A) 0 %; Eosinophils # (A) 0.1 k/uL (0-0.7); Eosinophils % (A) 2 %; HCT 33.1 % (34.0-46.0); HGB 11.2 gm/dL (11.4-16.0); Lymphocytes # (A) 1.4 k/uL (1.0-4.8); Lymphocytes % (A) 18 %; MCH 33.5 pg (25.0-35.0); MCHC 33.9 g/dL (31.0-37.0); MCV 98.7 fL (80.0-100.0); Mean Platelet Volume 9.4; Monocytes # (A) 0.4 k/uL (0-1.0); Monocytes % (A) 5 %; Neutrophils # (A) 5.8 k/uL (1.3-7.7); Neutrophils % (A) 75 %; Platelet Count 133 k/uL (150-450); RBC 3.35 m/uL (3.80-5.40); RDW 12.7 % (11.5-15.5); WBC 7.8 k/uL (3.8-10.6)
[2021-11-07 18:06] VITALS: BP 129/70; PULSE 99; RESP 18; TEMP 98.1
[2021-11-07 23:25] LABS: Hepatitis B Surface Antigen Nonreactive (Nonreactive)
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
[2021-11-09 13:19] LABS: HIV 2 AB Non-Reactive (Non-Reactive); HIV AB P24 Non-Reactive (Non-Reactive); HIV P24 AG Non-Reactive (Non-Reactive)
== END 2021-11-07 17:35 | disposition home or self-care (01) ==
LOC: FBPOP 14:28
PROVIDERS: ATTEND Obstetrics & Gynecology
DX: O46.002 Antepartum hemorrhage with coagulation defect, unspecified, second trimester (principal); Z3A.23 23 weeks gestation of pregnancy
CPT/HCPCS: 96360; 96361; 84112; 36415; 86762; 82947; 85025; 87340; 86780; 87390; 76815; G0463; 99215

== ENCOUNTER 2021-11-09 20:29 | Outpatient (CLI) | payer OTHER ==
[2021-11-09 21:54] VITALS: BP 133/61; PULSE 95; RESP 16; TEMP 97.1
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
== END 2021-11-09 21:31 | disposition home or self-care (01) ==
LOC: FBPOP 20:29
PROVIDERS: ATTEND Obstetrics & Gynecology
DX: O26.852 Spotting complicating pregnancy, second trimester (principal); Z3A.23 23 weeks gestation of pregnancy
CPT/HCPCS: 84112; G0463; 99213

== ENCOUNTER 2021-11-12 22:20 | Outpatient (CLI) | payer OTHER ==
[2021-11-12 23:48] VITALS: BP 110/60; PULSE 85; RESP 16; TEMP 97.6
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
== END 2021-11-12 22:48 | disposition home or self-care (01) ==
LOC: FBPOP 22:20
PROVIDERS: ATTEND Obstetrics & Gynecology
DX: O47.02 False labor before 37 completed weeks of gestation, second trimester (principal); Z3A.23 23 weeks gestation of pregnancy
CPT/HCPCS: 99213

== ENCOUNTER 2022-02-18 15:51 | Emergency (ER) | payer OTHER ==
[2022-02-18 16:21] VITALS: TEMP 97.7
--- NOTE | 2022-02-18 19:14 | ED ---
Psych HPI - General Chief Complaint: Psychiatric Symptoms Stated Complaint: Mental health eval-38 weeks preg Time Seen by Provider: 02/18/22 18:59 Source: patient, RN notes reviewed Mode of arrival: ambulatory - History of Present Illness Initial Comments: This is a 32-year-old female who presents to the emergency department for psychiatric evaluation. States that for the last week she has felt sad. She's not had any particular triggers, but states that she has a lot going on. Denies any suicidal or homicidal ideations. She is 38 weeks . Not currently taking any psychiatric medication, however she has in the past. She is going to counseling at [facility] once weekly, which she finds beneficial. Denies any fevers, chills, sore throat, cough, dyspnea, chest pain, palpitations, abdominal pain, nausea, vomiting, diarrhea, back pain, or headaches. MD Complaint: feels depressed Onset/Timin -: week(s) Associated Symptoms: denies other symptoms Treatments Prior to Arrival: none - Related Data Home Medications Medication Instructions Recorded Confirmed No Known Home Medications 01/21/21 11/12/21 Allergies Allergy/AdvReac Type Severity Reaction Status Date / Time No Known Allergies Allergy Verified 11/12/21 22:31 Review of Systems ROS Statement: Those systems with pertinent positive or pertinent negative responses have been documented in the HPI. ROS Other: All systems not noted in ROS Statement are negative. Past Medical History Past Medical History: No Reported History Additional Past Medical History / Comment(s): SCREENING FOR GASTRIC BYPASS History of Any Multi-Drug Resistant Organisms: None Reported Past Surgical History: Section Additional Past Surgical History / Comment(s): LEEP Past Anesthesia/Blood Transfusion Reactions: No Reported Reaction Past Psychological History: ADD/ADHD, Anxiety, Depression Smoking Status: Never smoker - Past Family History Mother History Unknown: Yes Family Medical History: No Reported History General Exam Limitations: no limitations General appearance: alert Head exam: Present: atraumatic, normocephalic, normal inspection Respiratory exam: Present: normal lung sounds bilaterally. Absent: respiratory distress, wheezes, rales, rhonchi, stridor Cardiovascular Exam: Present: regular rate, normal rhythm, normal heart sounds. Absent: systolic murmur, diastolic murmur, rubs, gallop, clicks Neurological exam: Present: alert, oriented X3, CN II-XII intact Psychiatric exam: Present: depressed, flat affect Skin exam: Present: warm, dry, intact, normal color. Absent: rash Course Vital Signs 02/18/22 02/19/22 16:18 02:02 Temperature 97.7 F Pulse Rate 99 74 Respiratory 20 15 Rate Blood Pressure 143/93 134/67 O2 Sat by Pulse 99 98 Oximetry Medical Decision Making - Medical Decision Making This is a 32-year-old female who presents to the emergency department for psychiatric evaluation. BAT is negative. UDS positive for methamphetamines. EPS evaluated the patient and found her to be clear for discharge, as she has no suicidal or homicidal ideations. I am in agreement with this assessment. The patient will follow up with [facility] on an outpatient basis for counseling. Discussed the importance of following through with her PCP and [employer] [facility] during this time, as her hormones will also have a big impact on her symptoms and she is at risk for depression. 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 Return precautions reviewed in depth, the patient is instructed to return to the emergency department with any new, worsening, or concerning symptoms. Patient verbalized understanding. This case was discussed in detail with the attending ED physician. Presentation, findings, and treatment plan discussed in detail as well. - Lab Data Lab Results 02/18/22 Range/Units 21:07 Urine Color Light Yellow Urine Appearance Turbid H (Clear) Urine pH 6.0 (5.0-8.0) Ur Specific [place] 1.001 (1.001-1.035) Urine Protein Negative (Negative) Urine Glucose (UA) Negative (Negative) Urine Ketones Negative (Negative) Urine Blood Negative (Negative) Urine Nitrite Negative (Negative) Urine Bilirubin Negative (Negative) Urine Urobilinogen <2.0 (<2.0) mg/dL Ur Leukocyte Esterase Negative (Negative) Urine RBC 51 H (0-5) /hpf Urine WBC 11 H (0-5) /hpf Ur Squamous Epith Cells 1 (0-4) /hpf Urine Bacteria Rare H (None) /hpf Urine Opiates Screen Not Detected (NotDetected) Ur Oxycodone Screen Not Detected (NotDetected) Urine Methadone Screen Not Detected (NotDetected) Ur Propoxyphene Screen Not Detected (NotDetected) Ur Barbiturates Screen Not Detected (NotDetected) U Tricyclic Antidepress Not Detected (NotDetected) Ur Phencyclidine Scrn Not Detected (NotDetected) Ur Amphetamines Screen Not Detected (NotDetected) U Methamphetamines Scrn Detected H (NotDetected) U Benzodiazepines Scrn Not Detected (NotDetected) Urine Cocaine Screen Not Detected (NotDetected) U Marijuana (THC) Screen Not Detected (NotDetected) Disposition Clinical Impression: Depression, Adjustment reaction of adult life Disposition: HOME SELF-CARE Instructions (If sedation given, give patient instructions): Depression (ED) Additional Instructions: Return to the emergency department with any new, worsening, or concerning symptoms. Follow up with [facility] for counseling. Is patient prescribed a controlled substance at d/c from ED?: No Referrals: Vaughn Solo MD [Primary Care Provider] - 1-2 days
[2022-02-18 21:15] LABS: Appearance,Urine Turbid (Clear); Bacteria,Urine Rare /hpf; Bilirubin,Urine Negative (Negative); Blood,Urine Negative (Negative); Color,Urine Light Yellow; Glucose,Urine (UA) Negative (Negative); Ketones,Urine Negative (Negative); Leukocyte Esterase,Urine Negative (Negative); Nitrite,Urine Negative (Negative); Protein,Urine Negative (Negative); RBC,Urine 51 /hpf (0-5); Specific Gravity,Urine 1.001 (1.001-1.035); Squamous Epithelial Cell,Urine 1 /hpf (0-4); Urobilinogen,Urine <2.0 mg/dL (<2.0); WBC,Urine 11 /hpf (0-5)
[2022-02-18 21:40] LABS: Amphetamine Screen,Urine Not Detected (NotDetected); Barbiturate Screen,Urine Not Detected (NotDetected); Benzodiazepines Screen,Urine Not Detected (NotDetected); Cocaine Screen,Urine Not Detected (NotDetected); Methadone Screen, Urine Not Detected (NotDetected); Opiate Screen,Urine Not Detected (NotDetected); Oxycodone Screen, Urine Not Detected (NotDetected); Phencyclidine Screen,Urine Not Detected (NotDetected); Tricyclic Antidepressant,Urine Not Detected (NotDetected); Urn Cannabinoid Scrn Not Detected (NotDetected)
[2022-02-19 02:03] VITALS: BP 134/67; PULSE 74; RESP 15
== END 2022-02-19 02:04 | disposition home or self-care (01) ==
LOC: EC 15:51
DX: O99.343 Other mental disorders complicating pregnancy, third trimester (principal); F43.21 Adjustment disorder with depressed mood; Z3A.38 38 weeks gestation of pregnancy
CPT/HCPCS: 80306; 81001; 82075; 87086; 99284

== ENCOUNTER 2022-03-05 23:25 | Inpatient (IN) | payer OTHER ==
[~2022-03-05 23:25] MED LIST changes: -LACTATED RINGERS 1,000 ML IV SCH; -LIDOCAINE 1% 20 ML VIAL (10MG/ML) FOR IV START INTRADERMA PRN; +ROPIVACAINE 5 MG/ML 20 ML AMPULE ONE; +SODIUM CHLORIDE 0.9% 100 ML BAG ONE; +fentaNYL (PF) 50 MCG/ML 5 ML AMP ONE
[2022-03-06] MEDS ORDERED: TERBUTALINE 1 MG/ML VIAL SQ PRN (00:47)
[2022-03-06] MEDS ORDERED: OXYTOCIN 10 UNIT/ML 1 ML VIAL IM PRN (00:47)
[2022-03-06] MEDS ORDERED: METHYLERGONOVINE 0.2 MG/ML 1 ML AMP IM PRN (00:47)
[2022-03-06] MEDS ORDERED: PENICILLIN G POTASSIUM 5,000,000 UNIT in DEXTROSE 5% IN WATER 100 ML IVPB STA ×2 (00:47)
[2022-03-06] MEDS ORDERED: LIDOCAINE 0.5% (PF) 5 MG/ML (50 ML SDV) SQ PRN (00:47)
[2022-03-06] MEDS ORDERED: CARBOPROST TROMETHAMINE 250 MCG/ML 1 ML AMP IM PRN (00:47)
[2022-03-06] MEDS: LACTATED RINGERS 1,000 ML IV SCH ×3 (01:29→13:01)
[2022-03-06 01:35] LABS: Basophils # (A) 0.1 k/uL (0-0.2); Basophils % (A) 0 %; Eosinophils # (A) 0.3 k/uL (0-0.7); Eosinophils % (A) 2 %; HCT 35.7 % (34.0-46.0); HGB 12.4 gm/dL (11.4-16.0); Lymphocytes # (A) 3.6 k/uL (1.0-4.8); Lymphocytes % (A) 26 %; MCH 32.5 pg (25.0-35.0); MCHC 34.9 g/dL (31.0-37.0); MCV 93.1 fL (80.0-100.0); Mean Platelet Volume 9.3; Monocytes # (A) 0.8 k/uL (0-1.0); Monocytes % (A) 6 %; Neutrophils # (A) 8.9 k/uL (1.3-7.7); Neutrophils % (A) 64 %; Platelet Count 259 k/uL (150-450); RBC 3.83 m/uL (3.80-5.40); RDW 13.6 % (11.5-15.5); WBC 13.9 k/uL (3.8-10.6)
[2022-03-06 01:48] LABS: Appearance,Urine Clear (Clear); Bilirubin,Urine Negative (Negative); Blood,Urine Negative (Negative); Color,Urine Light Yellow; Glucose,Urine (UA) Negative (Negative); Ketones,Urine Negative (Negative); Leukocyte Esterase,Urine Negative (Negative); Nitrite,Urine Negative (Negative); Protein,Urine Negative (Negative); Urobilinogen,Urine <2.0 mg/dL (<2.0)
[2022-03-06 02:14] LABS: Amphetamine Screen,Urine Detected (NotDetected); Barbiturate Screen,Urine Not Detected (NotDetected); Benzodiazepines Screen,Urine Not Detected (NotDetected); Cocaine Screen,Urine Not Detected (NotDetected); Methadone Screen, Urine Not Detected (NotDetected); Opiate Screen,Urine Not Detected (NotDetected); Oxycodone Screen, Urine Not Detected (NotDetected); Phencyclidine Screen,Urine Not Detected (NotDetected); Tricyclic Antidepressant,Urine Not Detected (NotDetected); Urn Cannabinoid Scrn Not Detected (NotDetected)
[2022-03-06] MEDS: PENICILLIN G POTASSIUM 2,500,000 UNIT in DEXTROSE 5% IN WATER 100 ML IVPB SCH ×4 (05:40→09:41)
[2022-03-06 09:53] LABS: Hepatitis B Surface Antigen Nonreactive (Nonreactive)
--- NOTE | 2022-03-06 10:10 | P.HPOB ---
History of Present Illness H&P Date: 03/05/22 Chief Complaint: Postdates This is a 32-year-old 8 para 5125 woman who presents to labor and delivery triage reporting an estimated due date of 03/03/2022 based on early ultrasound. She has not received care throughout this . She is 40-3/7 weeks gestation in complaining of irregular contractions. On initial evaluation in labor and delivery triage she is noted to be 5+ centimeters dilated and is therefore admitted. She is saman irregularly at that time. Obstetric history is significant for 4 term vaginal deliveries and one term section. 2 of the vaginal deliveries were successful vaginal births after . Her most recent was in May 2020 at which time she had a normal spontaneous vaginal delivery at term of an 8 pound with a moderate shoulder dystocia. This appears to be complicated by history of no care as well as psychosocial issues and she did have a positive UDS for methamphetamines. Laboratory data: Blood type A+, antibody screen negative, rubella immune, hepati tis B surface antigen negative. Group B strep status unknown. Review of Systems All systems: negative Past Medical History Past Medical History: No Reported History History of Any Multi-Drug Resistant Organisms: None Reported Past Surgical History: Section Additional Past Surgical History / Comment(s): LEEP Past Anesthesia/Blood Transfusion Reactions: No Reported Reaction Past Psychological History: ADD/ADHD, Anxiety, Depression Smoking Status: Current every day smoker Past Alcohol Use History: None Reported Additional Past Alcohol Use History / Comment(s): SMOKING 1/2 PPD SINCE AGE 15 Past Drug Use History: None Reported - Past Family History Mother History Unknown: Yes Family Medical History: No Reported History Medications and Allergies Home Medications Medication Instructions Recorded Confirmed Type No Known Home Medications 01/21/21 03/05/22 History Allergies Allergy/AdvReac Type Severity Reaction Status Date / Time No Known Allergies Allergy Verified 03/05/22 23:34 Exam Vital Signs Temp Pulse Resp BP Pulse Ox 03/06/22 00:58 96.5 F L 79 16 129/72 98 03/05/22 23:33 96.6 F L 93 16 129/78 98 Intake and Output 03/05/22 03/06/22 03/06/22 22:59 06:59 14:59 Other: # Voids 2 Weight 88.451 kg This is a comfortable appearing female who is visibly gravid. Fundal height consistent with stated term . Targeted physical exam is performed. Cervix is 6 cm dilated, 70% effaced and the vertex in the -3 station. Artificial rupture of membranes is undertaken and copious clear fluid is noted. She has category 1 heart tones and is irregularly saman every 2-5 minutes. Results Result Diagrams: 03/06/22 01:05 03/06/22 00:52 Abnormal Lab Results - Last 24 Hours (Table) 03/06/22 03/06/22 03/06/22 Range/Units 00:52 01:05 01:05 WBC 13.9 H (3.8-10.6) k/uL Neutrophils # 8.9 H (1.3-7.7) k/uL Ur Amphetamines Screen Detected H (NotDetected) Rubella IgG Antibody 104.00 H (0.00-10.00) IU/mL Assessment and Plan (1) Term Current Visit: No Status: Acute Code(s): Z34.80 - ENCOUNTER FOR SUPRVSN OF NORMAL , UNSP TRIMESTER SNOMED Code(s): 18637642 (2) Insufficient care Current Visit: Yes Status: Acute Code(s): O09.30 - SUPRVSN OF PREG W INSUFFICIENT ANTENAT CARE, UNSP TRIMESTER SNOMED Code(s): 2602718678488 (3) History of Current Visit: Yes Status: Acute Code(s): Z98.891 - HISTORY OF UTERINE SCAR FROM PREVIOUS SURGERY SNOMED Code(s): 426145936 Plan: This is a 32-year-old 8 para 5125 woman who presents states in spontaneous active labor. She has had minimal care. She does have a history of a previous section with 2 successful vaginal births after section. She declines repeat at this time. She is counseled briefly on the risks of labor after including uterine rupture risk approximately 1%. status is currently reassuring by external monitoring. She is receiving group B strep prophylactic antibiotics. She does have a history of shoulder dystocia described with her last delivery and nursing staff has been notified to be prepared for this event. She may have an epidural anesthetic upon request. Anticipate normal spontaneous vaginal delivery.
--- NOTE | 2022-03-06 10:21 | P.MSEPDOC ---
Presenting Problems - Arrival Data Date of Arrival on Unit: 03/06/22 Time of Arrival on Unit: 01:00 Mode of Transport: Wheelchair - Complaint OB-Reason for Admission/Chief Complaint: Possible Onset of Labor, Rule Out SROM Medical History - Information : 7 Para: 6 Term: 4 : 1 Abortions: Spontaneous or Elective: 0 Number of Living Children: 5 - Gestational Age Gestational Age by YOLI (wks/days): 40 Weeks and 3 Days - History Complications: No Care Review of Systems - Review of Systems Constitutional: No problems Breast: No problems ENT: No problems Cardiovascular: No problems Respiratory: No problems Gastrointestinal: No problems Genitourinary: No problems Musculoskeletal: No problems Neurological: No problems Skin: No problems Vital Signs - Temperature Temperature: 96.5 F Temperature Source: Oral - Pulse Left Brachial Pulse Rate: 79 Pulse Assessment Method: Automatic Cuff - Respirations Respiratory Rate: 16 Oxygen Delivery Method: Room Air O2 Sat by Pulse Oximetry: 98 - Blood Pressure Right Arm Blood Pressure: 129/72 Blood Pressure Mean: 91 Blood Pressure Source: Automatic Cuff Medical Screen Scoring - Cervical Exam Dilation (cm): 5 Effacement (%): 70 Station: -2 Membranes: Intact - Uterine Contractions Frequency From (mins): 4 Frequency To (mins): 5 Duration From (seconds): 40 Duration To (seconds): 60 Intensity: Moderate Resting: Soft to palpation - Assessment - Baby A Baseline FHR: 140 Heart Rate - NICHD Category: Category I (Normal) NST: Reactive Physician Notification - Physician Notified Physician Notified Date: 03/06/22 Physician Notified Time: 00:45 Physician: Court Al Order Received: Yes - Notification Comment Comment: Patient admitted to unit for labor. Maternal Triage Index - Stat/Priority 1 Stat Priority 1: No - Urgent/Priority 2 Urgent Priority 2: No - Prompt/Priority 3 Prompt Priority 3: Yes Criteria Met for Priority 3: contractions dialated to 5/70/-2 Disposition - Disposition OB Disposition: Admit Discharge Date: 03/06/22 Discharge Time: 01:00 I agree with the RN Medical Screening Exam: Yes Case reviewed; plan agreed upon as documented in EMR&OBIX.: Yes Diagnosis: Labor at term
[2022-03-06] MEDS ORDERED: HYDROCORTISONE 2.5% RECTAL CREAM 30 GM TUBE RECTAL PRN (12:17)
[2022-03-06] MEDS ORDERED: diphenhydrAMINE 25 MG CAP PO PRN (12:17)
[2022-03-06] MEDS ORDERED: diphenhydrAMINE 50 MG/ML 1 ML VIAL IVP PRN ×2 (12:17)
[2022-03-06] MEDS ORDERED: IBUPROFEN 600 MG TAB PO PRN (12:17)
[2022-03-06] MEDS ORDERED: LANOLIN CREAM 5 GM TUBE TOPICAL PRN (12:17)
[2022-03-06] MEDS ORDERED: SIMETHICONE 80 MG CHEWABLE PO PRN (12:17)
[2022-03-06] MEDS ORDERED: ZOLPIDEM 5 MG TAB PO PRN (12:17)
[2022-03-06] MEDS ORDERED: BENZOCAINE/MENTHOL SPRAY 1 GM/SPRAY AEROSOL TOPICAL PRN (12:17)
[2022-03-06] MEDS ORDERED: diphenhydrAMINE 50 MG CAP PO PRN (12:17)
--- NOTE | 2022-03-06 12:17 | P.PROBDLV ---
Vaginal Delivery Note - . Vaginal Delivery Note: Findings: Male infant in the vertex right occiput anterior position with Apgars of 9 at 1 minute and 9 at 5 minutes weighing 7 lbs. 13 oz., 3550 g. Nuchal cord 1. EBL approximate 500 mL's. Intact, three-vessel cord placenta. Delivery summary: This is a 32 year old 8 para 5 woman who was admitted at 40-3/7 weeks gestation in early active labor. She had received no care. Please see the admission history and physical for details. Following admission she received group B strep prophylactic antibiotics. She received an epidural anesthetic. She underwent artificial rupture of membranes during which clear fluid was noted. She received Pitocin augmentation. She had rapid progression to complete cervical dilation with strong urge to push. She was preemptively position in the Sharif position and with maternal effort 1 the head did deliver from the right occiput anterior position. There was a tight nuchal cord 1 that was delivered through. Anterior followed by the posterior shoulders were delivered without difficulty. The rest the was delivered onto the field. Nose and mouth were bulb suctioned. It was placed on the maternal abdomen and the cord was eventually clamped and cut. Patient did have some active bleeding following delivery during the third stage of labor. She was instructed to push and an intact, three-vessel cord placenta was expressed with a large amount of clot and debris. EBL is approximate 500 mL's. Uterine massage then undertaken and the patient received Pitocin following delivery of the placenta. The uterus did firm up nicely immediately postdelivery. The vagina and cervix were inspected and no lacerations were noted. Both mother and infant were doing well post delivery in the room.
[2022-03-06] MEDS ORDERED: OXYTOCIN 30 UNITS/500 ML NS 30 UNIT in SALINE 1 500ML.BAG IV SCH (12:30)
[2022-03-06] MEDS: SENNOSIDES-DOCUSATE SODIUM 1 EACH TAB PO SCH (19:48)
[2022-03-07 00:18] VITALS: RESP 16
[2022-03-07] MEDS: ACETAMINOPHEN TAB 325 MG TAB PO PRN ×2 (04:51→08:18)
[2022-03-07 05:11] LABS: Basophils % (A) 0 %; Eosinophils # (A) 0.2 k/uL (0-0.7); Eosinophils % (A) 2 %; HCT 30.9 % (34.0-46.0); HGB 10.5 gm/dL (11.4-16.0); Lymphocytes # (A) 3.3 k/uL (1.0-4.8); Lymphocytes % (A) 28 %; MCH 31.8 pg (25.0-35.0); MCHC 34.1 g/dL (31.0-37.0); MCV 93.2 fL (80.0-100.0); Mean Platelet Volume 9.1; Monocytes # (A) 0.6 k/uL (0-1.0); Monocytes % (A) 5 %; Neutrophils # (A) 7.4 k/uL (1.3-7.7); Neutrophils % (A) 63 %; Platelet Count 242 k/uL (150-450); RBC 3.32 m/uL (3.80-5.40); RDW 13.6 % (11.5-15.5); WBC 11.8 k/uL (3.8-10.6)
[2022-03-07] MEDS: SENNOSIDES-DOCUSATE SODIUM 1 EACH TAB PO SCH (08:17)
--- NOTE | 2022-03-07 08:52 | P.DS ---
Providers Date of admission: 03/06/22 00:56 Expected date of discharge: 03/07/22 Attending physician: Court Al Primary care physician: Stated None - Discharge Diagnosis(es) (1) Term Current Visit: No Status: Acute (2) Insufficient care Current Visit: Yes Status: Acute (3) History of Current Visit: Yes Status: Acute (4) Vaginal delivery following previous caesarean section Current Visit: Yes Status: Acute Hospital Course: This is a 32-year-old 8 now para 6 woman who is admitted at 40-3/7 weeks gestation in spontaneous active labor. She did receive no regular care throughout her . Following admission she underwent artificial rupture of membranes and received Pitocin augmentation. She received group B strep prophylactic antibiotics. She received an epidural anesthetic. She went on to deliver a liveborn male over an intact perineum with Apgars of 9 at 1 minute and 9 at 5 minutes weighing 7 lbs. 13 oz. The infant was admitted to special care nursery for withdrawal protocol. The patient's course was unremarkable. By the morning of day #1 she was ambulating and voiding without difficulty and reports decreasing lochia. She denies pain. She requests discharge home. Her vital signs were stable and her blood work within normal limits she was therefore discharged home with routine instructions for care and follow-up. Procedures: Vaginal after section Patient Condition at Discharge: Good Plan - Discharge Summary Discharge Rx Participant: No New Discharge Prescriptions: New Acetaminophen Tab [Tylenol] 650 mg PO Q4HR PRN tab PRN Reason: Mild Pain Or Fever >= 100.5 Ibuprofen [Motrin] 600 mg PO Q6HR PRN tab PRN Reason: Mild Pain (Scale 1 To 3) Discharge Medication List Acetaminophen Tab [Tylenol] 650 mg PO Q4HR PRN tab 03/07/22 [Rx] Ibuprofen [Motrin] 600 mg PO Q6HR PRN tab 03/07/22 [Rx] Follow up Appointment(s)/Referral(s): Court Al MD [STAFF PHYSICIAN] - 6 Weeks Activity/Diet/Wound Care/Special Instructions: Follow-up in the office in 6 weeks . Call with any concerning signs or symptoms including heavy vaginal bleeding, severe abdominal pain, fever greater than 101, swelling or redness of the lower extremities, foul vaginal discharge, or signs of depression. Nothing in the vagina for 6 weeks after delivery, specifically no intercourse. Discharge Disposition: HOME SELF-CARE
[2022-03-07 09:05] VITALS: BP 111/71; PULSE 92; TEMP 97.8
[2022-03-08 11:55] LABS: HIV 2 AB Non-Reactive (Non-Reactive); HIV AB P24 Non-Reactive (Non-Reactive); HIV P24 AG Non-Reactive (Non-Reactive)
[2022-03-08 15:44] LABS: C. trachomatis,PCR Positive (Neg,Equiv); Chlamydia trachomatis Source Urine; N. gonorrhoeae,PCR Negative (Neg,Equiv); Neisseria Source Urine
--- NOTE | 2022-03-31 10:32 | CDI ---
Documentation Clarification Form Date: 03/31/2022 10:15:00 AM From: Mana Nuno Admit Date: 03/06/2022 12:56:00 AM Patient Name: Alison Lloyd Visit Number: [id number] Discharge Date: 03/07/2022 09:40:00 AM ATTENTION: The Clinical Documentation Specialists (CDI) and [facility] Coding Staff appreciate your assistance in clarifying documentation. Please respond to the clarification below the line at the bottom and electronically sign. The CDI & [facility] Coding staff will review the response and follow-up if needed. Please note: Queries are made part of the Legal Health Record. If you have any questions, please contact the author of this message via ITS. Dr. Court Al Patient did have some active bleeding following delivery during third stage of labor. She was instructed to push and an intact three vessel cord placenta was expressed with a large amount of clot and debris. EBL 500 mL's is documented in 03/06/2022 Vaginal Delivery Procedure note. Please clarify if this is expected during a normal delivery or does patient have a diagnosis of an intrapartum bleed. Additional clarification is requested. History/Risk Factors: Patient with large amount of clot and debris Clinical Indicators: RBCs went from 3.83 to 3.32, Hgb 12.4 to 10.5, and Hct 35.7 to 30.9. EBL 500 mLs which is WNL. Treatment: Uterine massage and Pitocin Please clarify if intrapartum bleed is a valid diagnosis? [ ] Yes, intrapartum bleed is present as evidence by clotting and decreased RBC, Hbg and Hct: [X ] No, intrapartum bleed is a normal occurrence during a vaginal delivery. [ ] Other (please specify diagnosis) [ ] Unable to determine MTDD
== END 2022-03-07 09:40 | disposition home or self-care (01) | DRG 833 ==
LOC: FBPOP 23:25 → 4FBP 03-06 00:56
PROVIDERS: ADMIT Obstetrics & Gynecology; ATTEND Obstetrics & Gynecology
PROC: 10907ZC Drainage of Amniotic Fluid, Therapeutic from Products of Conception, Via Natural or Artificial Opening (ICD-10-PCS; principal; 2022-03-06)
PROC: 10E0XZZ Delivery of Products of Conception, External Approach (ICD-10-PCS; principal; 2022-03-06)
DX: O48.0 Post-term pregnancy (principal); O69.1XX0 Labor and delivery complicated by cord around neck, with compression, not applicable or unspecified; O99.334 Smoking (tobacco) complicating childbirth; O99.344 Other mental disorders complicating childbirth; O34.219 Maternal care for unspecified type scar from previous cesarean delivery; O09.33 Supervision of pregnancy with insufficient antenatal care, third trimester; F90.9 Attention-deficit hyperactivity disorder, unspecified type; F41.9 Anxiety disorder, unspecified; F32.A Depression, unspecified; F17.210 Nicotine dependence, cigarettes, uncomplicated; Z28.310 Unvaccinated for COVID-19; Z28.21 Immunization not carried out because of patient refusal
CPT/HCPCS: 59025; 80306; 81003; 82947; 84112; 85025; 86762; 86780; 86850; 86900; 86901; 87340; 87390; 87491; 87591; 88307; 99213

== ENCOUNTER 2022-10-02 20:07 | Inpatient (IN) | payer MEDICAID, OTHER ==
[2022-10-02] MEDS ORDERED: LIDOCAINE 1% INJ 10MG/ML (30 ML VIAL-PF) SQ ONE (20:24)
[2022-10-02] MEDS ORDERED: KETOROLAC 15 MG/ML 1 ML VIAL IVP STA (20:24)
[2022-10-02] MEDS ORDERED: DIPH,PERTUS(ACELL)TETVAC-LF 0.5 ML VIAL IM ONE (20:25)
--- NOTE | 2022-10-02 22:43 | ED ---
General Adult HPI - General Chief complaint: Extremity Injury, Upper Stated complaint: Mental Health Time Seen by Provider: 10/02/22 20:15 Source: patient, police, EMS, RN notes reviewed Mode of arrival: EMS Limitations: no limitations - History of Present Illness Initial comments: 32-year-old female with no significant past medical history presents to the emergency department via hole puncher strap escort for attempted suicide. Patient reports that she was given her razor in order to shave her legs however she took a razor and cut her left wrist in attempt to kill herself. She reports that she saw "a demon in the corner who told her to do so. " She denies auditory hallucinations. She is not up-to-date on her tetanus vaccination. She denies a ny numbness or tingling in the extremity. She denies any anticoagulant use. She denies recent alcohol or illicit drug use. Patient denies any homicidal ideation at this time. - Related Data Previous Rx's Medication Instructions Recorded Acetaminophen Tab [Tylenol] 650 mg PO Q4HR PRN tab 03/07/22 Ibuprofen [Motrin] 600 mg PO Q6HR PRN tab 03/07/22 Allergies Allergy/AdvReac Type Severity Reaction Status Date / Time No Known Allergies Allergy Verified 03/05/22 23:34 Review of Systems ROS Statement: Those systems with pertinent positive or pertinent negative responses have been documented in the HPI. ROS Other: All systems not noted in ROS Statement are negative. Past Medical History Past Medical History: No Reported History History of Any Multi-Drug Resistant Organisms: None Reported Past Surgical History: Section Additional Past Surgical History / Comment(s): LEEP Past Anesthesia/Blood Transfusion Reactions: No Reported Reaction Past Psychological History: ADD/ADHD, Anxiety, Depression Smoking Status: Current every day smoker Past Alcohol Use History: None Reported Past Drug Use History: None Reported - Past Family History Mother History Unknown: Yes Family Medical History: No Reported History General Exam - General Exam Comments Initial Comments: General: Alert, in no acute distress Head: atraumatic normocephalic. Eyes PERRL, EOMI intact, mucous membranes moist Respiratory: Lungs clear to auscultation bilaterally Cardiovascular: Heart rate regular rate and rhythm Abdominal: Soft without guarding or rebound Extremities: Normal inspection with full range of motion and normal capillary refill, left forearm with 2 lacerations. Distal laceration is approximately 3 cm long with active bleeding and adipose tissue visualized. Proximal laceration 10 cm long with adipose tissue visualized. Full range of motion, mild tenderness. 2+ radial pulses bleeding controlled no crepitus noted Neuroogic: alert and oriented 3, CN II-XII intact, able to ambulate with steady gait Skin: warm dry and intact with normal color Limitations: no limitations Course Vital Signs 10/02/22 10/03/22 20:25 03:05 Pulse Rate 104 H 75 Respiratory 14 18 Rate Blood Pressure 126/80 114/69 O2 Sat by Pulse 99 98 Oximetry - Reevaluation(s) Reevaluation #1: 10/02/22 22:43 Patient is medically cleared. Awaiting EPS evaluation. Global Marketing Operations Manager remains at bedside. Reevaluation #2: 10/02/22 23:19 Notified that patient meets inpatient psychiatric management. Procedures - Laceration Laceration #1 Indication: laceration Site: other (Left forearm) Description: linear Depth: simple, single layer Anesthetic Used: lidocaine 1% Anesthesia Technique: local infiltration Amount (mls): 10 Pre-repair: wound explored, irrigated extensively Type of Sutures: nylon Size of Sutures: 5-0 Number of Sutures: 4 Technique: simple, interrupted Complications: pain, bleeding, nerve injury Patient Tolerated Procedure: well, no complications Additional Comments: Distal NBI remains intact post suture placement Laceration #2 Indication: laceration Site: other (Left forearm) Description: linear Depth: simple, single layer Anesthetic Used: lidocaine 1% Anesthesia Technique: local infiltration Amount (mls): 10 Pre-repair: wound explored, irrigated extensively (10) Type of Sutures: vicryl Size of Sutures: 5-0 Number of Sutures: 16 Technique: simple, interrupted Complications: pain, bleeding, nerve injury Patient Tolerated Procedure: well, no complications Additional Comments: Patient tolerated well. Distal NBI remains intact status post suture placement Medical Decision Making - Medical Decision Making Was pt. sent in by a medical professional or institution (Dr. PA, FOREST NURSERY SUPERVISOR, urgent care, hospital, or assisted...) When possible be specific @ -[No] Did you speak to anyone other than the patient for history (EMS, parent, family, police, friend...)? What history was obtained from this source @ -Patient brought in via [facility] Did you review nursing and triage notes (agree or disagree)? Why? @ -[I reviewed and agree with nursing and triage notes] Were old charts reviewed (outside hosp., previous admission, EMS record, old EKG, old radiological studies, urgent care reports/EKG's, assisted records)? Report findings @ -[No old charts were reviewed] Differential Diagnosis (chest pain, altered mental status, abdominal pain women, abdominal pain men, vaginal bleeding, weakness, fever, dyspnea, syncope, headache, dizziness, GI bleed, back pain, seizure, CVA, palpatations, mental health, musculoskeletal)? @ -[not applicable] EKG interpreted by me (3pts min.). @ -[As above] X-rays interpreted by me (1pt min.). @ -[None done] CT interpreted by me (1pt min.). @ -[None done] U/S interpreted by me (1pt. min.). @ -[None done] What testing was considered but not performed or refused? (CT, X-rays, U/S, labs)? Why? @ -[None] What meds were considered but not given or refused? Why? @ -[None] Did you discuss the management of the patient with other professionals (professionals i.e. , PA, FOREST NURSERY SUPERVISOR, lab, RT, psych nurse, social service technician, director trading, teacher, chief compliance officer, case management associate)? Give summary @ -[No] Was smoking cessation discussed for >3mins.? @ -[No] Was critical care preformed (if so, how long)? @ -[No] Were there social determinants of health that impacted care today? How? (Homelessness, low income, unemployed, alcoholism, drug addiction, transportation, low edu. Level, literacy, decrease access to med. care, [facility], rehab)? @ -[No] Was there de-escalation of care discussed even if they declined (Discuss DNR or withdrawal of care, Hospice)? DNR status @ -[No] What co-morbidities impacted this encounter? (DM, HTN, Smoking, COPD, CAD, Cancer, CVA, ARF, Chemo, Hep., AIDS, mental health diagnosis, sleep apnea, morbid obesity)? @ -[None] Was patient admitted / discharged? Hospital course, mention meds given and rou te, prescriptions, significant lab abnormalities, going to OR and other pertinent info. @ -[place]. This is a 32-year-old female who presents the emergency department with a chief complaint of attempted suicide. Patient had a thorough history and physical exam performed on the ED. Left forearm with 2 lacerations requiring suture repair. Patient had 16 sutures placed to 6 cm laceration in for sutures placed to 3 summary a laceration to left forearm. For which she tolerated well. Patient was evaluated by the EPS nurse who believes the patient meets inpatient criteria she will be admitted to this hospital for continuation of care. Case discussed with PENG Vicente who agrees with POC Undiagnosed new problem with uncertain prognosis? @ -[No] Drug Therapy requiring intensive monitoring for toxicity (Heparin, Nitro, Insulin, Cardizem)? @ -[No] Were any procedures done? @ -[No] Diagnosis/symptom? @ -Attempted suicide - Left forearm laceration Acute, or Chronic, or Acute on Chronic? @ -Acute Uncomplicated (without systemic symptoms) or Complicated (systemic symptoms)? @ -[default] Side effects of treatment? @ -[No] Exacerbation, Progression, or Severe Exacerbation? @ -[No] Poses a threat to life or bodily function? How? (Chest pain, USA, MS, pneumonia, PE, COPD, DKA, ARF, appy, cholecystitis, CVA, Diverticulitis, Homicidal, Suicidal, threat to staff... and all critical care pts) @ -High likelihood including - Lab Data Result diagrams: 10/04/22 06:51 10/04/22 06:51 Lab Results 10/02/22 10/02/22 Range/Units 23:15 23:15 Urine Opiates Screen Not Detected (NotDetected) Ur Oxycodone Screen Not Detected (NotDetected) Urine Methadone Screen Not Detected (NotDetected) Ur Propoxyphene Screen Not Detected (NotDetected) Ur Barbiturates Screen Not Detected (NotDetected) U Tricyclic Antidepress Not Detected (NotDetected) Ur Phencyclidine Scrn Not Detected (NotDetected) Ur Amphetamines Screen Not Detected (NotDetected) U Methamphetamines Scrn Not Detected (NotDetected) U Benzodiazepines Scrn Not Detected (NotDetected) Urine Cocaine Screen Not Detected (NotDetected) U Marijuana (THC) Screen Not Detected (NotDetected) Coronavirus (PCR) Not Detected (Not Detectd) Disposition Clinical Impression: Suicidal ideation, Laceration of wrist, Attempted suicide Disposition: ADMITTED IP TO THIS HOSP Condition: Fair Is patient prescribed a controlled substance at d/c from ED?: No Time of Disposition: 23:20
[2022-10-02 23:34] LABS: Amphetamine Screen,Urine Not Detected (NotDetected); Benzodiazepines Screen,Urine Not Detected (NotDetected); Cocaine Screen,Urine Not Detected (NotDetected); Methadone Screen, Urine Not Detected (NotDetected); Opiate Screen,Urine Not Detected (NotDetected); Phencyclidine Screen,Urine Not Detected (NotDetected); Tricyclic Antidepressant,Urine Not Detected (NotDetected); Urn Cannabinoid Scrn Not Detected (NotDetected)
[2022-10-02 23:35] LABS: Barbiturate Screen,Urine Not Detected (NotDetected); Oxycodone Screen, Urine Not Detected (NotDetected)
[2022-10-03] MEDS ORDERED: ACETAMINOPHEN TAB 325 MG TAB PO PRN (05:18)
[2022-10-03] MEDS ORDERED: IBUPROFEN 600 MG TAB PO PRN (05:18)
[2022-10-03] MEDS ORDERED: OLANZapine 10 MG VIAL IM PRN (05:18)
[2022-10-03] MEDS ORDERED: MAG HYDROX/AL HYDROX/SIMETH 30 ML CUP PO PRN (05:18)
[2022-10-03] MEDS ORDERED: hydrOXYzine HCL 25 MG TAB PO PRN (05:18)
[2022-10-03] MEDS ORDERED: OLANZapine 7.5 MG TAB PO PRN (05:18)
[2022-10-03] MEDS ORDERED: MAGNESIUM HYDROXIDE 2,400 MG/10 ML CUP PO PRN (05:18)
[2022-10-03] MEDS ORDERED: hydrOXYzine HCL 50 MG/ML 1 ML VIAL IM PRN (05:18)
[2022-10-03 10:52] LABS: Appearance,Urine Clear (Clear); Bilirubin,Urine Negative (Negative); Blood,Urine Negative (Negative); Color,Urine Colorless; Glucose,Urine (UA) Negative (Negative); Ketones,Urine Negative (Negative); Leukocyte Esterase,Urine Negative (Negative); Nitrite,Urine Negative (Negative); Protein,Urine Negative (Negative); Specific Gravity,Urine 1.002 (1.001-1.035); Urobilinogen,Urine <2.0 mg/dL (<2.0)
--- NOTE | 2022-10-03 12:14 | P.HP ---
Psychiatric H&P - . H&P Date: 10/03/22 History & Physical: Allergies Allergy/AdvReac Type Severity Reaction Status Date / Time No Known Allergies Allergy Verified 03/05/22 23:34 Vital Signs Temp 97.7 F 10/03/22 04:36 Pulse 90 10/03/22 04:36 Resp 20 10/03/22 04:36 BP 131/65 10/03/22 04:36 Pulse Ox 95 10/03/22 04:36 FiO2 Intake & Output 10/02/22 10/03/22 10/03/22 18:59 06:59 18:59 Weight 92 kg 91.9 kg Laboratory Last Values Urine Opiates Screen Not Detected (NotDetected) 10/02/22 23:15 Ur Oxycodone Screen Not Detected (NotDetected) 10/02/22 23:15 Urine Methadone Screen Not Detected (NotDetected) 10/02/22 23:15 Ur Propoxyphene Screen Not Detected (NotDetected) 10/02/22 23:15 Ur Barbiturates Screen Not Detected (NotDetected) 10/02/22 23:15 U Tricyclic Antidepress Not Detected (NotDetected) 10/02/22 23:15 Ur Phencyclidine Scrn Not Detected (NotDetected) 10/02/22 23:15 Ur Amphetamines Screen Not Detected (NotDetected) 10/02/22 23:15 U Methamphetamines Scrn Not Detected (NotDetected) 10/02/22 23:15 U Benzodiazepines Scrn Not Detected (NotDetected) 10/02/22 23:15 Urine Cocaine Screen Not Detected (NotDetected) 10/02/22 23:15 U Marijuana (THC) Screen Not Detected (NotDetected) 10/02/22 23:15 Coronavirus (PCR) Not Detected (Not Detectd) 10/02/22 23:15 10/03/22 09:19 IDENTIFYING DATA: Patient is a , 32-year-old female who is presenting for suicide attempt. HPI: Patient was brought into the ED after having cut her wrists with a razor while in assisted as a suicide attempt. While in the ED, patient required 4 sutures on the left forearm and 16 sutures in a different portion of the left forearm. Patient has flat affect as she describes the stressors and her history of depression. Patient reports numerous stressors including being in assisted, concern about losing rights to her children, and being served divorce papers from her . Per EPS nurse note, she also said that her 6 year old son to talk to him and "he doesn't remember me! He didn't want to talk to me....he used to love me so much." Patient today states "I don't want to live like any more". She reports low mood for her whole life and worsened mood in the past 4 months. She endorses trouble falling and staying asleep, anhedonia, and thoughts of worthlessness. She endorses fair appetite. She states that she has been on Abilify 5 mg and Remeron 15 mg for the past 1 month and has not noticed too much changes in her mood. She states that she does not want to be on medication that causes weight gain. Patient vaguely endorses a history of poor sleep, improved mood, better self- esteem and increased impulsivity in spending too much that lasted for "a few weeks ". However, she states that she was spending this much because she wanted to please her . She reports impulsively at baseline. She denies actions or impairment during this period of time that would constitute as loss of function. She states that she recently has been hearing indistinct whispers. She states that she has never experienced anything like that in the past. She denies other auditory hallucinations and denies visual hallucinations. Patient denies homicidal ideation. She currently endorses passive suicidal ideation. Patient denies recent use of all substances while she has been in assisted. She r eports sobriety over the past 5 months (prior to 2020, patient had been using methamphetamine regularly for about 1 year). UDS was negative of all substances. PSYCH HX: She reports being part of Mental health court. Therapist: Kyung Guzman Past tx: [place], Lexapro, Wellbutrin, Latuda, Concerta. She reports hx of noncompliance. She states the trazodone was not helpful for sleep. Hospitalizations: [facility] in the past among others. 4 times. NSSI: Denies SA: Cut forearm x 3 times. Attempted to hang herself. PMH: Past Medical History: No Reported History. Denies hx of seizures. History of Any Multi-Drug Resistant Organisms: None Reported Past Surgical History: Section Additional Past Surgical History / Comment(s): LEEP Past Anesthesia/Blood Transfusion Reactions: No Reported Reaction Past Psychological History: ADD/ADHD, Anxiety, Depression Smoking Status: Current every day smoker Past Alcohol Use History: None Reported Past Drug Use History: None Reported ALLERGIES: NKDA SUBSTANCE HX: Methamphetamine: 0.5 gram daily from [id number]. She said she had 2 relapses since then but reports sobriety over the past 5 months. Alcohol: Denies Cocaine: Denies Tobacco: Vapes Cannabis: Denies Denies using other substances SOCIAL/LEGAL HX: Grew up in foster care. She says she has 7 children. She reports having been for 3 years. Highest level of education: Completed high school Vocation: [employer] and works as a master at arms Legal problems: drug raid resulted in being placed in assisted FAM PSYCH HX: Patient suspects mental illness in her mother MENTAL STATUS EXAM: General Appearance: Patient appears to be stated age is alert, directable, overweight and attempts to cooperate. Patient appears to have fair hygiene and grooming. Behavior: Patient is seated without any agitated behavior. Speech: Patient's speech is fluent and nonpressured. Mood/Affect: Patient reports their mood is "depressed", affect is flat. Suicidality/Homicidality: Patient denies having any homicidal ideation intent or plan. Endorses suicidal ideation Perceptions: Patient denies any visual hallucinations and endorses auditory hallucinations Though content/process: There is no evidence of any delusional thought content and thought process is linear and goal-directed. Memory and concentration: AOX3, grossly intact for the purposes of this session. Judgment and insight: Poor, impulsive STRENGTHS/WEAKNESSES: Strength is that her family is motivating her. Weakness is impulsivity which is difficult to improve unless patient actively engages in therapy INTELLECT: average IMPRESSIONS: Major depressive disorder, recurrent, severe with psychotic features R/o bipolar II disorder Methamphetamine use disorder, in early remission Cluster B traits PLAN: -Patient is admitted under voluntary status to MHU for stabilization of psychiatric symptoms and safety. Patient signed adult voluntary form and medication consent and is placed in patient's chart. -Medications : Abilify 5 mg daily Lexapro 10 mg daily Vistaril 50 mg at bedtime for sleep Discontinue Remeron due to concerns for weight gain Consider lithium augmentation as patient reports positive response with this in the past -Vistaril and Zyprexa as needed for agitation -Patient was counselled on substance abuse and desired to cut back on use. Motivational interviewing. -Patient was informed of the risks, benefits and side effects of the medication and patient verbally consented to taking the medications. Patient signed med consent form and was placed in chart. -Internal Medicine consult to perform medical evaluation and physical. -SW on board for discharge planning. Encourage patient to participate in groups to work on coping skills. 10/03/22 11:00 10/03/22 11:25 10/03/22 11:30 10/03/22 12:14
--- NOTE | 2022-10-03 13:34 | P.MDCNMH ---
History of Present Illness H&P Date: 10/03/22 History of present illness; patient is a 32-year-old lady with past medical history significant for depression and bipolar disorder brought in by Yuri who attempted to kill herself by slitting her left wrist. Patient was given a razor to shave her legs but she ended up trying to hurt herself. Patient stated that she saw a demon in the corner who told her to do so. Patient stated that she has been admitted twice in the past to inpatient psychiatric facilities. There is no complaint of chest pain or shortness of breath.Denies any lightheadedness or dizziness. Urine drug screen was negative. COVID-19 was negative Patient was admitted to inpatient psych for further evaluation and treatment REVIEW OF SYSTEMS: CONSTITUTIONAL: No fever, no malaise, no fatigue. HEENT: No recent visual problems or hearing problems. Denied any sore throat. CARDIOVASCULAR: No chest pain, orthopnea, PND, no palpitations, no syncope. PULMONARY: No shortness of breath, no cough, no hemoptysis. GASTROINTESTINAL: No diarrhea, no nausea, no vomiting, no abdominal pain. NEUROLOGICAL: No headaches, no weakness, no numbness. HEMATOLOGICAL: Denies any bleeding or petechiae. GENITOURINARY: Denies any burning micturition, frequency, or urgency. MUSCULOSKELETAL/RHEUMATOLOGICAL: Denies any joint pain, swelling, or any muscle pain. ENDOCRINE: Denies any polyuria or polydipsia. The rest of the 14-point review of systems is negative. PHYSICAL EXAMINATION: GENERAL: The patient is alert and oriented x3, not in any acute distress. Well developed, well nourished. HEENT: Pupils are round and equally reacting to light. EOMI. No scleral icterus. No conjunctival pallor. Normocephalic, atraumatic. No pharyngeal erythema. No thyromegaly. CARDIOVASCULAR: S1 and S2 present. No murmurs, rubs, or gallops. PULMONARY: Chest is clear to auscultation, no wheezing or crackles. ABDOMEN: Soft, nontender, nondistended, normoactive bowel sounds. No palpable organomegaly. MUSCULOSKELETAL: No joint swelling or deformity. EXTREMITIES: Laceration seen left forearm NEUROLOGICAL: Gross neurological examination did not reveal any focal deficits. SKIN: No rashes. Assessment and plan Suicidal ideation Laceration of wrist Severe depression Bipolar disorder Plan; Continue wound care Continue pain management Continue psych meds per psychiatry Past Medical History Past Medical History: No Reported History History of Any Multi-Drug Resistant Organisms: None Reported Past Surgical History: Section Additional Past Surgical History / Comment(s): LEEP Past Anesthesia/Blood Transfusion Reactions: No Reported Reaction Past Psychological History: ADD/ADHD, Anxiety, Depression Smoking Status: Former smoker Past Alcohol Use History: None Reported Additional Past Alcohol Use History / Comment(s): SMOKING 1/2 PPD SINCE AGE 15 Past Drug Use History: Methamphetamine Additional Drug Use History / Comment(s): clean from meth x 2 years - Past Family History Mother History Unknown: Yes Family Medical History: No Reported History Medications and Allergies Home Medications Medication Instructions Recorded Confirmed Type Acetaminophen Tab [Tylenol] 650 mg PO Q4HR PRN tab 03/07/22 Rx Ibuprofen [Motrin] 600 mg PO Q6HR PRN tab 03/07/22 Rx Allergies Allergy/AdvReac Type Severity Reaction Status Date / Time No Known Allergies Allergy Verified 03/05/22 23:34 Physical Exam Vitals: Vital Signs Temp Pulse Pulse Resp BP BP Pulse Ox 10/03/22 04:36 97.7 F 90 20 131/65 95 10/03/22 03:05 75 18 114/69 98 10/02/22 20:25 104 H 14 126/80 99 Intake and Output 10/02/22 10/03/22 10/03/22 22:59 06:59 14:59 Other: Weight 79.379 kg 92 kg 91.9 kg Cranial Nerve Examination - Cranial Nerves Cranial Nerve II- Optic: Intact (Cranial nerves II through XII intact) Cranial Nerve III- Oculomotor: Intact Cranial Nerve IV- Trochlear: Intact Cranial Nerve V- Trigeminal: Intact Cranial Nerve - Abducens: Intact Cranial Nerve VII- Facial: Intact Cranial Nerve VIII- Auditory: Intact Cranial Nerve IX- Glossopharyngeal: Intact Cranial Nerve X- Vagus: Intact Cranial Nerve XI- Accessory: Intact Cranial Nerve XII- Hypoglossal: Intact
[2022-10-03] MEDS ORDERED: hydrOXYzine pamoate 25 MG CAP PO SCH (21:00)
[2022-10-03] MEDS ORDERED: MIRTAZAPINE 15 MG TAB PO SCH (21:00)
[2022-10-03] MEDS: ARIPiprazole 5 MG TAB PO SCH (21:00)
[2022-10-03 22:34] LABS: Urine Alcohol Negative (Negative); Urine Barbiturate Negative (Negative); Urine Cocaine Negative (Negative); Urine Methadone Negative (Negative); Urine Opiates Negative (Negative); Urine Phencyclidine Negative (Negative)
[2022-10-04 07:10] LABS: Anisocytosis Slight; Basophils % (A) 0 %; Eosinophils # (A) 0.2 k/uL (0-0.7); Eosinophils % (A) 3 %; HCT 34.9 % (34.0-46.0); HGB 10.6 gm/dL (11.4-16.0); Hypochromasia Marked; Lymphocytes # (A) 2.1 k/uL (1.0-4.8); Lymphocytes % (A) 32 %; MCHC 30.4 g/dL (31.0-37.0); MCV 82.3 fL (80.0-100.0); Mean Platelet Volume 8.7; Microcytosis Slight; Monocytes # (A) 0.5 k/uL (0-1.0); Monocytes % (A) 8 %; Neutrophils # (A) 3.4 k/uL (1.3-7.7); Neutrophils % (A) 54 %; Platelet Count 178 k/uL (150-450); RBC 4.24 m/uL (3.80-5.40); RDW 18.9 % (11.5-15.5); WBC 6.4 k/uL (3.8-10.6)
[2022-10-04 07:22] LABS: ALT 17 U/L (4-34); AST 18 U/L (14-36); African American GFR (CKD) >90 (>60 ml/min/1.73 sqM); Albumin 4.2 g/dL (3.5-5.0); Alkaline Phosphatase 67 U/L (38-126); Anion Gap 13 mmol/L; Bilirubin,Unconjugated 0.2 mg/dL (0.0-1.1); Blood Urea Nitrogen 14 mg/dL (7-17); Calcium 8.9 mg/dL (8.4-10.2); Carbon Dioxide 22 mmol/L (22-30); Chloride 105 mmol/L (98-107); Glucose 89 mg/dL (74-99); Non-African American GFR(CKD) >90 (>60 ml/min/1.73 sqM); Potassium 4.1 mmol/L (3.5-5.1); Sodium 140 mmol/L (137-145); Total Bilirubin 0.2 mg/dL (0.2-1.3); Total Protein 7.5 g/dL (6.3-8.2)
[2022-10-04] MEDS: ESCITALOPRAM 10 MG TAB PO SCH (10:53)
[2022-10-04] MEDS: ARIPiprazole 5 MG TAB PO SCH (10:53)
[2022-10-04] MEDS ORDERED: hydrOXYzine HCL 25 MG TAB PO PRN (11:00)
--- NOTE | 2022-10-04 11:04 | P.PN ---
Progress Note - Text Progress Note Date: 10/04/22 Interval hx: Patient was seen today for psychiatric follow up and was seen in her room, she was agreeable to be seen in the office today. Patient had poor eye contact today. She answered questions as appropriately as she could, very concrete. She states that she cut herself several times with a razor blade while in the prison. She claims that she just got sentenced to a year in senior living. She states that she has been under a lot of stress. She claims that she was seeing demons and possibly the devil in herself. She claims that nobody else saw it. She states that her children were upset with her over the phone. She did attempt to harm herself and to commit suicide at the prison. She claims that she is still having thoughts of suicidal thoughts however these are passive now intent or plan. Denies any homicidal ideations. Denies any auditory or visual hallucinations today. Claims that she is not sleeping well at nighttime. She has been going to some groups. Denying any side effects from medications. Mental status exam: General Appearance: Patient appears to be stated age is alert, directable, overweight and attempts to cooperate. Poor eye contact. Patient appears to have fair hygiene and grooming. Mildly disheveled. Behavior: Patient is seated without any agitated behavior. Poor eye contact. Attempts to cooperate. Speech: Patient's speech is fluent and nonpressured. [place] Mood/Affect: Patient reports their mood is "about the same", affect is flat. Suicidality/Homicidality: Patient denies having any homicidal ideation intent or plan. Endorses suicidal ideation, no intent or plan. Perceptions: Patient denies any visual hallucinations and denies any auditory hallucinations Though content/process: There is no evidence of any delusional thought content and thought process is linear and goal-directed. [place], poverty of content. Memory and concentration: AOX3, grossly intact for the purposes of this session. Judgment and insight: Poor, impulsive, improving mildly IMPRESSIONS: Major depressive disorder, recurrent, severe with psychotic features R/o bipolar II disorder Methamphetamine use disorder, in early remission Cluster B traits PLAN: -Patient is admitted under voluntary status to MHU for stabilization of psychiatric symptoms and safety. Patient signed adult voluntary form and medication consent and is placed in patient's chart. -Medications : Increase Abilify 7.5 mg daily for psychosis/adjunct, continue Lexapro 10 mg daily for mood/anxiety, Benadryl 50 mg at bedtime for sleep. Consider lithium augmentation as patient reports positive response with this in the past -Vistaril and Zyprexa as needed for agitation -SW on board for discharge planning. Encourage patient to participate in groups to work on coping skills. The patient is a prison hold.
[2022-10-04 12:22] LABS: Chol/HDL Ratio 3.33 Ratio; LDL Cholesterol,Calculated 92.7 mg/dL (0.0-131.0); VLDL Calculation 12.94 mg/dL (5.00-40.00)
[2022-10-04] MEDS: diphenhydrAMINE 50 MG CAP PO SCH (22:28)
[2022-10-05] MEDS ORDERED: ARIPiprazole 5 MG TAB PO SCH (09:00)
[2022-10-05] MEDS: ESCITALOPRAM 10 MG TAB PO SCH (09:22)
--- NOTE | 2022-10-05 11:58 | P.PN ---
Progress Note - Text Progress Note Date: 10/05/22 Interval hx: Patient was seen today for psychiatric follow up and she was playing cards and other games in the activity room. Patient had mildly improving eye contact today and improving hygiene and grooming. She claims that she is feeling very upset this morning depressed and suicidal as well. She claims that her roommate "kept me up all night". She states that her roommate kept on turning on the lights and getting up out of bed. She was requesting a room change. She states that she is having a good time participating in group however. States that she still hearing "whispers" and states that she is also having increasing her anxiety. She states that it may be from the Abilify. He is denying any current suicidal thoughts now intent or plan. Denies any homicidal ideations. Denies any auditory or visual hallucinations today. Claims that she is not sleeping well at nighttime. She has been going to some groups. Denying any side effects from medications. Improving appetite. Mental status exam: General Appearance: Patient appears to be stated age is alert, directable, o verweight and attempts to cooperate. Improving eye contact. Patient appears to have fair hygiene and grooming Behavior: Patient is seated without any agitated behavior. Improving eye contact. Attempts to cooperate. Speech: Patient's speech is fluent and nonpressured. [place] Mood/Affect: Patient reports their mood is "a little better but anxious", affect is constricted Suicidality/Homicidality: Patient denies having any homicidal ideation intent or plan. Endorses suicidal ideation, no intent or plan. Perceptions: Patient denies any visual hallucinations and denies any auditory hallucinations Though content/process: There is no evidence of any delusional thought content and thought process is linear and goal-directed. [place], focused on her stressors. Memory and concentration: AOX3, grossly intact for the purposes of this session. Judgment and insight: Poor, impulsive, improving mildly IMPRESSIONS: Major depressive disorder, recurrent, severe with psychotic features R/o bipolar II disorder Methamphetamine use disorder, in early remission Cluster B traits PLAN: -Patient is admitted under voluntary status to [facility] for stabilization of psychiatric symptoms and safety. Patient signed adult voluntary form and medication consent and is placed in patient's chart. -Medications : d/c Abilify due to likely akithesia/restlessness and ineffectiveness. replace with geodon 20 mg bid for psychosis/mood stabilization, continue Lexapro 10 mg daily for mood/anxiety, Benadryl 50 mg at bedtime for sleep. ordered ekg Consider lithium augmentation as patient reports positive response with this in the past -Vistaril and Zyprexa as needed for agitation -SW on board for discharge planning. Encourage patient to participate in groups to work on coping skills. The patient is a [facility] hold. likely discharge in 1-2 days.
[2022-10-05] MEDS: ZIPRASIDONE 20 MG CAP PO SCH ×2 (12:59→21:35)
[2022-10-05] MEDS: diphenhydrAMINE 50 MG CAP PO SCH (21:35)
[2022-10-06] MEDS: ESCITALOPRAM 10 MG TAB PO SCH (09:18)
[2022-10-06] MEDS: ZIPRASIDONE 20 MG CAP PO SCH ×2 (09:18→22:03)
[2022-10-06] MEDS: LITHIUM CARBONATE 150 MG CAP PO SCH ×3 (09:52→22:02)
--- NOTE | 2022-10-06 10:00 | P.PN ---
Progress Note - Text Progress Note Date: 10/06/22 Interval hx: Patient was seen today sitting in the hallways talking to another patient. She was agreeable to speak to auto service writer in the office today. Patient today had a constricted affect and states that she is feeling "very sad" and states that she does not know why. She claims that she is also having some anxiety today. Claims that the voices have generally improved however was not fixated on them today. Continues to describe them as a "whispers". She states that she has had good results with lithium in the past and would like to have that added to her regimen. She states that she is trying to go to groups and participate as best as she can. States that she did not sleep well last night and has tried several other sleeping medications in the past without much luck and have had side effects. We spoke about doxepin and she was okay with trying it today. She is claiming that she is having suicidal thoughts at this time, no intent or plan. Denies any homicidal ideations. Denies any auditory or visual hallucinations today. Denying any side effects from medications. Improving appetite. Mental status exam: General Appearance: Patient appears to be stated age is alert, directable, overweight and attempts to cooperate. Poor eye contact. Patient appears to have fair hygiene and grooming Behavior: Patient is seated without any agitated behavior. Poor eye contact. Attempts to cooperate. Speech: Patient's speech is fluent and nonpressured. [place] Mood/Affect: Patient reports their mood is "sad today", affect is constricted Suicidality/Homicidality: Patient denies having any homicidal ideation intent or plan. Endorses ongoing suicidal ideation, no intent or plan. Perceptions: Patient denies any visual hallucinations and denies any auditory hallucinations Though content/process: There is no evidence of any delusional thought content and thought process is linear and goal-directed. [place]. Poverty of content. Memory and concentration: AOX3, grossly intact for the purposes of this session. Judgment and insight: Poor, improving mildly IMPRESSIONS: Major depressive disorder, recurrent, severe with psychotic features R/o bipolar II disorder Methamphetamine use disorder, in early remission Cluster B traits PLAN: -Patient is admitted under voluntary status to [facility] for stabilization of psychiatric symptoms and safety. Patient signed adult voluntary form and medication consent and is placed in patient's chart. -Medications : continue with geodon 20 mg bid for psychosis/mood stabilization, continue Lexapro 10 mg daily for mood/anxiety, d/c Benadryl and replace with doxepin 10 mg qhs for insomnia/mood. added lithium 150 mg tid for mood adjunct/ suicidal thoughts. reviewed ekg -Vistaril and Zyprexa as needed for agitation -SW on board for discharge planning. Encourage patient to participate in groups to work on coping skills. The patient is a care home hold. likely discharge in 1-2 days if patient improves clinically.
[2022-10-06] MEDS ORDERED: DOXEPIN 10 MG CAP PO SCH (21:00)
[2022-10-07] MEDS: ZIPRASIDONE 20 MG CAP PO SCH ×2 (09:06→23:10)
[2022-10-07] MEDS: ESCITALOPRAM 10 MG TAB PO SCH (09:06)
[2022-10-07] MEDS: LITHIUM CARBONATE 150 MG CAP PO SCH (09:06)
--- NOTE | 2022-10-07 13:00 | P.PN ---
Progress Note - Text Progress Note Date: 10/07/22 Interval history: Patient was seen today wondering hallways before lunch and She was agreeable to speak to administrative underwriter in the office today. Patient today had a constricted affect and had poor eye contact. She continues to state that her mood has been "up and down" and states that maybe this point she's been feeling depressed. She states that she was having suicidal thoughts last night. States that the voices have improved however. She claims that she was not able to sleep "at all" last night and we spoke about changing her medications that she was okay with. She continues to state that she is trying to go to some groups and remain positive. She states that her appetite is fair at this time. She is claiming that she is having suicidal thoughts at this time, no intent or plan. Denies any homicidal ideations. Denies any auditory or visual hallucinations today. Denying any side effects from medications. Improving appetite. Mental status exam: General Appearance: Patient appears to be stated age is alert, directable, overweight and attempts to cooperate. Poor eye contact. Patient appears to have fair hygiene and grooming Behavior: Patient is seated without any agitated behavior. Poor eye contact. Attempts to cooperate. Speech: Patient's speech is fluent and nonpressured. [place] Mood/Affect: Patient reports their mood is "still depressed", affect is constricted Suicidality/Homicidality: Patient denies having any homicidal ideation intent or plan. Endorses ongoing suicidal ideation, no intent or plan. Perceptions: Patient denies any visual hallucinations and denies any auditory hallucinations Though content/process: There is no evidence of any delusional thought content and thought process is linear and goal-directed. [place]. Poverty of content. Memory and concentration: AOX3, grossly intact for the purposes of this session. Judgment and insight: Poor, improving mildly IMPRESSIONS: Major depressive disorder, recurrent, severe with psychotic features R/o bipolar II disorder Methamphetamine use disorder, in early remission Cluster B traits PLAN: -Patient is admitted under voluntary status to [facility] for stabilization of psychiatric symptoms and safety. Patient signed adult voluntary form and medication consent and is placed in patient's chart. -Medications : continue with geodon 20 mg bid for psychosis/mood stabilization, increase Lexapro 20 mg daily for mood/anxiety, d increase doxepin 25 mg qhs for insomnia/mood. Increase lithium 300 mg bid for mood adjunct/suicidal thoughts -Vistaril and Zyprexa as needed for agitation -SW on board for discharge planning. Encourage patient to participate in groups to work on coping skills. The patient is a alf hold. likely discharge in 1-2 days if patient improves clinically.
[2022-10-07] MEDS: DOXEPIN 25 MG CAP PO SCH (23:10)
[2022-10-07] MEDS: LITHIUM CARBONATE 300 MG CAP PO SCH (23:10)
[2022-10-08] MEDS ORDERED: ZIPRASIDONE 20 MG CAP PO STA (11:27)
--- NOTE | 2022-10-08 11:33 | P.PN ---
Progress Note - Text Progress Note Date: 10/08/22 Interval history: Patient was seen today sleeping in her bed and she was agreeable to speak to roslyn north in the office today. She claims that she did not sleep at all last night. She states that she was up till late at night with other patients on the unit. Claims that she was sleeping this morning and wanted to sleep until lunchtime. We spoke about her sleep-wake cycle and other ways to improve that so she can sleep more at nighttime. He spoke about other options for nighttime medications however patient has poor reactions to a lot of the standard antidepressant sleep medications which are non-controlled. She has not tried Seroquel and is agreeable to try that at nighttime. She claims that she did go to some groups yesterday, continues to have a constricted affect. States that her mood and anxiety mildly improving since yesterday. States that she is still hearing voices however these have been improving mildly. She claims that "they're not telling me to do anything right now". She states that she is not currently having any suicidal thoughts. She states that her appetite is fair at this time. Denies any homicidal ideations. Denies any auditory or visual hallucinations today. Denying any side effects from medications. Improving appetite. Mental status exam: General Appearance: Patient appears to be stated age is alert, directable, overweight and attempts to cooperate. Oddly improving eye contact. Patient appears to have fair hygiene and grooming Behavior: Patient is seated without any agitated behavior. Mildly improving eye contact. Attempts to cooperate. Speech: Patient's speech is fluent and nonpressured. [place] Mood/Affect: Patient reports their mood is "a little better", affect is constricted Suicidality/Homicidality: Patient denies having any homicidal ideation intent or plan. Endorses ongoing suicidal ideation, no intent or plan. Perceptions: Patient denies any visual hallucinations and denies any auditory hallucinations Though content/process: There is no evidence of any delusional thought content and thought process is linear and goal-directed. [place]. Poverty of content. Focused on poor sleep. Memory and concentration: AOX3, grossly intact for the purposes of this session. Judgment and insight: Poor, improving mildly IMPRESSIONS: Major depressive disorder, recurrent, severe with psychotic features R/o bipolar II disorder Methamphetamine use disorder, in early remission Cluster B traits PLAN: -Patient is admitted under voluntary status to [facility] for stabilization of psychiatric symptoms and safety. Patient signed adult voluntary form and medication consent and is placed in patient's chart. -Medications : Changed geodon 40 mg daily for psychosis/mood stabilization, Lexapro 20 mg daily for mood/anxiety, continue doxepin 25 mg qhs for insomnia/mood. lithium 300 mg bid for mood adjunct/suicidal thoughts. added ser oquel 25 mg qhs for sleep/mood/psychosis with plan to increase as tolerated over the weekend. -Vistaril and Zyprexa as needed for agitation -SW on board for discharge planning. Encourage patient to participate in groups to work on coping skills. The patient is a [facility] hold. likely discharge tuesday vs tuesday if patient is improved psychiatrically.
[2022-10-08] MEDS: LITHIUM CARBONATE 300 MG CAP PO SCH ×2 (11:37→21:19)
[2022-10-08] MEDS: ESCITALOPRAM 20 MG TAB PO SCH (11:37)
[2022-10-08] MEDS: ZIPRASIDONE 20 MG CAP PO SCH (11:38)
[2022-10-08] MEDS: QUEtiapine 25 MG TAB PO SCH (21:19)
[2022-10-08] MEDS: DOXEPIN 25 MG CAP PO SCH (21:19)
[2022-10-09] MEDS: LITHIUM CARBONATE 300 MG CAP PO SCH ×2 (08:58→20:48)
[2022-10-09] MEDS: ZIPRASIDONE 40 MG CAP PO SCH (08:59)
[2022-10-09] MEDS: ESCITALOPRAM 20 MG TAB PO SCH (08:59)
[2022-10-09 09:04] LABS: Glucose,Whole Blood 193 mg/dL (70-110)
[2022-10-09] MEDS: DOXEPIN 25 MG CAP PO SCH (20:48)
[2022-10-09] MEDS ORDERED: BENZTROPINE MESYLATE 0.5 MG TAB PO PRN (21:04)
[2022-10-09] MEDS: QUEtiapine 25 MG TAB PO SCH (23:11)
[2022-10-10] MEDS: LITHIUM CARBONATE 300 MG CAP PO SCH (08:46)
[2022-10-10] MEDS: ESCITALOPRAM 20 MG TAB PO SCH (08:46)
[2022-10-10] MEDS: ZIPRASIDONE 40 MG CAP PO SCH (08:46)
--- NOTE | 2022-10-10 20:14 | P.PN ---
Progress Note - Text Progress Note Date: 10/09/22 Interval history: Patient was seen laying in bed most of the day. She is dressed, has make-up on, but isolating to her room most of the day. She directable and agreeable to speak with senior underwriter, but passively engaged in assessment. At this time, she endorses suicidal ideations to kill herself but does not disclose any specific plan, scoffs and says "can't do anything in here" and smiles. She reports hearing voices but objectively does not appear to be attending to internal stimuli. She reports mild tremor from her medications, and we will start Cogentin. Mental status exam: General Appearance: Patient appears to be stated age, obese female with multiple tattoos, dressed and wearing heavy eye makeup. Behavior: No agitated behavior. Passively engaged. Speech: Patient's speech is fluent and non-pressured, soft tone. Mood/Affect: Mood is improving mildly, affect is congruent and constricted. Suicidality/Homicidality: She endorses suicidal ideation to kill herself but does not disclose any specific plan, scoffs and says "can't do anything in here". Denies homicidal ideation intent or plan. Perceptions: She reports hearing voices but objectively does not appear to be attending to internal stimuli. No visual hallucinations. Though content/process: There is no evidence of any delusional thought content and thought process is linear and goal-directed. Memory and concentration: AOX3, grossly intact for the purposes of this session Judgment and insight: improving mildly Assessment/Plan: Continue with current diagnosis. Patient continues to meet criteria for inpatient psychiatric admission for symptom stabilization and safety. Patient will be maintained on current psychotropic medication regimen. Monitor for medication compliance and for any psychotropic medication side effects. Will continue to monitor ongoing response to treatment. Encouraged participation in milieu.
--- NOTE | 2022-10-10 20:17 | P.PN ---
Progress Note - Text Progress Note Date: 10/10/22 Interval history: Patient was seen sleeping most of the day again today. She is dressed, has make- up on, but isolating to her room most of the day. She directable and agreeable to speak with proposal manager writer, but passively engaged in assessment again today. At this time, she endorses suicidal ideations to kill herself but does not disclose any specific plan, scoffs and says "can't do anything in here" and smiles. She denies SI/HI, intent or plan. She denies AVH today. She reports tremor has improved after starting Cogentin. She complains of poor sleep, so we discussed sleep hygiene. She also requested a increase to her bedtime Seroquel. Mental status exam: General Appearance: Patient appears to be stated age, obese female with multiple tattoos, dressed and wearing heavy eye makeup. Behavior: No agitated behavior. Passively engaged. Speech: Patient's speech is fluent and non-pressured, soft tone. Mood/Affect: Mood is improving mildly, affect is congruent and constricted. Suicidality/Homicidality: Denies suicidal and homicidal ideation intent or plan. Perceptions: Denies auditory and visual hallucinations. Though content/process: There is no evidence of any delusional thought content and thought process is linear and goal-directed. Memory and concentration: AOX3, grossly intact for the purposes of this session Judgment and insight: improving mildly Assessment/Plan: Continue with current diagnosis. Patient continues to meet criteria for inpatient psychiatric admission for symptom stabilization and safety. Patient will be maintained on current psychotropic medication regimen. Will increase Seroquel to 50 mg QHS for mood/sleep. Encourage sleep hygiene. Monitor for medication compliance and for any psychotropic medication side effects. Will continue to monitor ongoing response to treatment. Encouraged participation in milieu.
[2022-10-10] MEDS ORDERED: QUEtiapine 50 MG TAB PO SCH (21:00)
[2022-10-11] MEDS: DOXEPIN 25 MG CAP PO SCH (01:26)
[2022-10-11] MEDS: LITHIUM CARBONATE 300 MG CAP PO SCH ×2 (01:26→10:12)
[2022-10-11 06:18] VITALS: BP 125/59; PULSE 86; RESP 18; TEMP 97.6
--- NOTE | 2022-10-11 10:09 | P.DS ---
Providers Date of admission: 10/03/22 01:29 Expected date of discharge: 10/11/22 Attending physician: Dontrell Sanchez MD Consults: 10/03/22 05:18 Consult Physician Routine Consulting Provider: Ann-Marie Jones Consult Reason/Comments: h&p MEDICAL MANAGMENT Do you want consulting provider notified?: Yes, Notify in am Primary care physician: Stated None - Discharge Diagnosis(es) (1) Major depressive disorder, recurrent, severe with psychotic features Current Visit: Yes Status: Acute Priority: High (2) Methamphetamine use disorder, mild, in early remission Current Visit: Yes Status: Acute Priority: Medium (3) Cluster B personality disorder Current Visit: Yes Status: Acute Priority: Medium Hospital Course: Admission HPI: Admission note was completed by Dr Mitchell "Patient is a , 32-year-old female who is presenting for suicide attempt. Patient was brought into the ED after having cut her wrists with a razor while in skilled nursing as a suicide attempt. While in the ED, patient required 4 sutures on the left forearm and 16 sutures in a different portion of the left forearm. Patient has flat affect as she describes the stressors and her history of depression. Patient reports numerous stressors including being in skilled nursing, concern about losing rights to her children, and being served divorce papers from her . Per EPS nurse note, she also said that her 6 year old son to talk to him and "he doesn't remember me! He didn't want to talk to me....he used to love me so much." Patient today states "I don't want to live like any more". She reports low mood for her whole life and worsened mood in the past 4 months. She endorses trouble falling and staying asleep, anhedonia, and thoughts of worthlessness. She endorses fair appetite. She states that she has been on Abilify 5 mg and Remeron 15 mg for the past 1 month and has not noticed too much changes in her mood. She states that she does not want to be on medication that causes weight gain. Patient vaguely endorses a history of poor sleep, improved mood, better self- esteem and increased impulsivity in spending too much that lasted for "a few weeks ". However, she states that she was spending this much because she wanted to please her . She reports impulsively at baseline. She denies actions or impairment during this period of time that would constitute as loss of function. She states that she recently has been hearing indistinct whispers. She states that she has never experienced anything like that in the past. She denies other auditory hallucinations and denies visual hallucinations. Patient denies homicidal ideation. She currently endorses passive suicidal ideation. Patient denies recent use of all substances while she has been in skilled nursing. She reports sobriety over the past 5 months (prior to 2020, patient had been using methamphetamine regularly for about 1 year). UDS was negative of all substances." Hospital course: Upon admission to the unit patient was directable and agreeable to commence treatment and signed adult voluntary form. Patient got along well with other patients on the unit and followed unit protocol. Patient was compliant with the medications and denied any side effects throughout hospital course. Patient was started on Geodon and increased her dose of 40 mg daily for psychosis/mood stabilization, Lexapro 20 mg daily for mood/anxiety, doxepin 25 mg daily at bedtime for insomnia/mood, lithium 300 mg twice a day for mood junk/suicidal thoughts, Seroquel increased to a dose of 50 mg daily at bedtime for sleep/mood/psychosis. Vistaril when necessary for anxiety. Patient spoke of her stressors and engaged in therapy both group and individual. Patient was also seen by medical team for history and physical exam. Throughout the course of the hospitalization patient gradually improved with regards to mood, anxiety, hallucinations/voices, suicidal thoughts, sleep and returned back to their baseline level of functioning. On the day of discharge patient denied any suicidal or homicidal ideations intent or plan denied any auditory or visual hallucinations. Patient endorsed wanting to live for her kids and her health. The patient denied any access to guns or weapons. Patient denied any paranoia and did not endorse any delusions. Patient does have a significant history of substance abuse and was counseled on abstaining from all substances including alcohol and marijuana. \\Patient was also counseled on the medications and need for regular compliance and was encouraged to follow-up with their outpatient appointment for mental health and also for primary care. Patient will be discharged today back to skilled nursing, corrections custody. Mental status exam: General Appearance: Patient appears to be mildly overweight, stated age is alert, constricted and cooperative. Patient is in no acute distress and has improved hygiene and grooming Behavior: Patient is calmly seated without any agitated behavior. Speech: Patient's speech is fluent and nonpressured. Mood/Affect: Patient reports their mood is "alright", affect is congruent and constricted. Suicidality/Homicidality: Patient denies having any suicidal or homicidal ideation intent or plan. Perceptions: Patient denies any auditory or visual hallucinations. Though content/process: There is no evidence of any delusional thought content and thought process is linear and goal-directed. Memory and concentration: AOX3, grossly intact for the purposes of this session. Can spell "WORLD" backwards correctly. Judgment and insight: chronically poor, however has improved with guarded prognosis Impression: Major depressive disorder, severe, recurrent with psychotic features Methamphetamine use disorder mild in early remission Cluster B personality disorder Plan: -Continue with discharge today as patient has improved and stabilized psychiatrically and is not currently an imminent threat to herself and/or others. Patient will remain at chronically elevated risk for harm to self and/or others due to her impulsivity and poor insight and judgment -Continue medications: Geodon 40 mg daily for psychosis/mood stabilization, Lexapro 20 mg daily for mood/anxiety, doxepin 25 mg daily at bedtime for insomnia/mood, lithium 300 mg twice a day for mood junk/suicidal thoughts, Seroquel 50 mg daily at bedtime for sleep/mood/psychosis. Vistaril 50 mg daily when necessary for anxiety. -Patient was counseled on the need for medication compliance and appropriate follow-up at mental health and also primary care for medical issues. Patient verbalized understanding and agreed. -Social work to help coordinate patient's discharged today back to skilled nursing. Social work also to arrange for patients follow up appointments for psychiatric care along with follow up with primary care provider. -Patient counseled on abstaining from recreational drugs and marijuana and alcohol. Was informed/educated on the adverse effects on their physical and mental health. Patient verbally agreed and understood. -Patient was instructed to return to the hospital or seek immediate medical care if their psychiatric or medical symptoms do worsen or reoccur. Allergies Allergy/AdvReac Type Severity Reaction Status Date / Time No Known Allergies Allergy Verified 03/05/22 23:34 Laboratory Results WBC 6.4 k/uL (3.8-10.6) 10/04/22 06:51 RBC 4.24 m/uL (3.80-5.40) 10/04/22 06:51 Hgb 10.6 gm/dL (11.4-16.0) L 10/04/22 06:51 Hct 34.9 % (34.0-46.0) 10/04/22 06:51 MCV 82.3 fL (80.0-100.0) 10/04/22 06:51 MCH 25.0 pg (25.0-35.0) 10/04/22 06:51 MCHC 30.4 g/dL (31.0-37.0) L 10/04/22 06:51 RDW 18.9 % (11.5-15.5) H 10/04/22 06:51 Plt Count 178 k/uL (150-450) 10/04/22 06:51 MPV 8.7 10/04/22 06:51 Neutrophils % 54 % 10/04/22 06:51 Lymphocytes % 32 % 10/04/22 06:51 Monocytes % 8 % 10/04/22 06:51 Eosinophils % 3 % 10/04/22 06:51 Basophils % 0 % 10/04/22 06:51 Neutrophils # 3.4 k/uL (1.3-7.7) 10/04/22 06:51 Lymphocytes # 2.1 k/uL (1.0-4.8) 10/04/22 06:51 Monocytes # 0.5 k/uL (0-1.0) 10/04/22 06:51 Eosinophils # 0.2 k/uL (0-0.7) 10/04/22 06:51 Basophils # 0.0 k/uL (0-0.2) 10/04/22 06:51 Hypochromasia Marked 10/04/22 06:51 Anisocytosis Slight 10/04/22 06:51 Microcytosis Slight 10/04/22 06:51 Sodium 140 mmol/L (137-145) 10/04/22 06:51 Potassium 4.1 mmol/L (3.5-5.1) 10/04/22 06:51 Chloride 105 mmol/L (98-107) 10/04/22 06:51 Carbon Dioxide 22 mmol/L (22-30) 10/04/22 06:51 Anion Gap 13 mmol/L 10/04/22 06:51 BUN 14 mg/dL (7-17) 10/04/22 06:51 Creatinine 0.58 mg/dL (0.52-1.04) 10/04/22 06:51 Est GFR (CKD-EPI)AfAm >90 (>60 ml/min/1.73 sqM) 10/04/22 06:51 Est GFR (CKD-EPI)NonAf >90 (>60 ml/min/1.73 sqM) 10/04/22 06:51 Glucose 89 mg/dL (74-99) 10/04/22 06:51 POC Glucose (mg/dL) 193 mg/dL (70-110) H 10/09/22 09:01 POC Glu [employer] Specialist Daren Lang 10/09/22 09:[address] Glu mg/dL 105 10/04/22 06:51 Hemoglobin A1c 5.3 % (0.0-6.0) 10/04/22 06:51 Calcium 8.9 mg/dL (8.4-10.2) 10/04/22 06:51 Total Bilirubin 0.2 mg/dL (0.2-1.3) 10/04/22 06:51 Conjugated Bilirubin 0.0 mg/dL (0.0-0.3) 10/04/22 06:51 Unconjugated Bilirubin 0.2 mg/dL (0.0-1.1) 10/04/22 06:51 Delta Bilirubin 0.0 mg/dL (0.0-0.2) 10/04/22 06:51 AST 18 U/L (14-36) 10/04/22 06:51 ALT 17 U/L (4-34) 10/04/22 06:51 Alkaline Phosphatase 67 U/L (38-126) 10/04/22 06:51 Total Protein 7.5 g/dL (6.3-8.2) 10/04/22 06:51 Albumin 4.2 g/dL (3.5-5.0) 10/04/22 06:51 Triglycerides 64.70 mg/dL (0.00-149.00) 10/04/22 06:51 Cholesterol 151.00 mg/dL (0.00-200.00) 10/04/22 06:51 LDL Cholesterol, Calc 92.7 mg/dL (0.0-131.0) 10/04/22 06:51 VLDL Cholesterol, Calc 12.94 mg/dL (5.00-40.00) 10/04/22 06:51 HDL Cholesterol 45.40 mg/dL (40.00-60.00) 10/04/22 06:51 Cholesterol/HDL Ratio 3.33 Ratio 10/04/22 06:51 TSH 0.702 mIU/L (0.465-4.680) 10/04/22 06:51 Urine Color Colorless 10/03/22 10:35 Urine Appearance Clear (Clear) 10/03/22 10:35 Urine pH 6.0 (5.0-8.0) 10/03/22 10:35 Ur Specific [place] 1.002 (1.001-1.035) 10/03/22 10:35 Urine Protein Negative (Negative) 10/03/22 10:35 Urine Glucose (UA) Negative (Negative) 10/03/22 10:35 Urine Ketones Negative (Negative) 10/03/22 10:35 Urine Blood Negative (Negative) 10/03/22 10:35 Urine Nitrite Negative (Negative) 10/03/22 10:35 Urine Bilirubin Negative (Negative) 10/03/22 10:35 Urine Urobilinogen <2.0 mg/dL (<2.0) 10/03/22 10:35 Ur Leukocyte Esterase Negative (Negative) 10/03/22 10:35 Urine HCG, Qual Not Detected (Not Detectd) 10/03/22 10:35 Urine Opiates Screen Negative (Negative) 10/03/22 10:35 Ur Oxycodone Screen Not Detected (NotDetected) 10/02/22 23:15 Urine Methadone Screen Negative (Negative) 10/03/22 10:35 Ur Propoxyphene Screen Negative (Negative) 10/03/22 10:35 Ur Barbiturates Screen Not Detected (NotDetected) 10/02/22 23:15 Urine Barbiturates Negative (Negative) 10/03/22 10:35 U Tricyclic Antidepress Not Detected (NotDetected) 10/02/22 23:15 Ur Phencyclidine Scrn Negative (Negative) 10/03/22 10:35 Ur Amphetamine Screen Negative (Negative) 10/03/22 10:35 Ur Amphetamines Screen Not Detected (NotDetected) 10/02/22 23:15 U Methamphetamines Scrn Not Detected (NotDetected) 10/02/22 23:15 U Benzodiazepines Scrn Negative (Negative) 10/03/22 10:35 Urine Cocaine Screen Negative (Negative) 10/03/22 10:35 U Cannabinoids Screen Negative (Negative) 10/03/22 10:35 U Marijuana (THC) Screen Not Detected (NotDetected) 10/02/22 23:15 Urine Alcohol Negative (Negative) 10/03/22 10:35 Coronavirus (PCR) Not Detected (Not Detectd) 10/02/22 23:15 Vital Signs Temp 97.6 F 10/11/22 06:17 Pulse 86 10/11/22 06:17 Resp 18 10/11/22 06:17 BP 125/59 10/11/22 06:17 Pulse Ox 98 10/11/22 06:17 FiO2 Intake & Output 10/10/22 10/11/22 10/11/22 18:59 06:59 18:59 Weight 96.3 kg Patient Condition at Discharge: Stable Plan - Discharge Summary Discharge Rx Participant: No New Discharge Prescriptions: New Ziprasidone [Geodon] 40 mg PO DAILY 30 Days #30 cap [place] Carbonate 300 mg PO BID 30 Days #60 cap hydrOXYzine HCL [Atarax] 50 mg PO DAILY PRN 30 Days #60 tab PRN Reason: Anxiety Escitalopram [Lexapro] 20 mg PO DAILY 30 Days #30 tab QUEtiapine [SEROquel] 50 mg PO HS 30 Days #30 cap Doxepin [SINEquan] 25 mg PO HS 30 Days #30 cap Continue Acetaminophen Tab [Tylenol] 650 mg PO Q4HR PRN tab PRN Reason: Mild Pain Or Fever >= 100.5 Ibuprofen [Motrin] 600 mg PO Q6HR PRN tab PRN Reason: Mild Pain (Scale 1 To 3) Discharge Medication List Acetaminophen Tab [Tylenol] 650 mg PO Q4HR PRN tab 03/07/22 [Rx] Ibuprofen [Motrin] 600 mg PO Q6HR PRN tab 03/07/22 [Rx] Doxepin [SINEquan] 25 mg PO HS 30 Days #30 cap 10/11/22 [Rx] Escitalopram [Lexapro] 20 mg PO DAILY 30 Days #30 tab 10/11/22 [Rx] [place] Carbonate 300 mg PO BID 30 Days #60 cap 10/11/22 [Rx] QUEtiapine [SEROquel] 50 mg PO HS 30 Days #30 cap 10/11/22 [Rx] Ziprasidone [Geodon] 40 mg PO DAILY 30 Days #30 cap 10/11/22 [Rx] hydrOXYzine HCL [Atarax] 50 mg PO DAILY PRN 30 Days #60 tab 10/11/22 [Rx] Follow up Appointment(s)/Referral(s): None,Stated [Primary Care Provider] - 1-2 days Activity/Diet/Wound Care/Special Instructions: Avoid the use of street drugs and alcohol. Take all medications as prescribed. When you are in need of refills on your medications, please contact your medical provider and/or outpatient psychiatrist to have this done. Please go to scheduled outpatient appointments for aftercare treatment. If symptoms return or become worse, call the crisis line at and/or go to the nearest emergency room for evaluation. Discharge Disposition: DC/TRANSFER COURT/LAW
[2022-10-11] MEDS: ESCITALOPRAM 20 MG TAB PO SCH (10:12)
[2022-10-11] MEDS: ZIPRASIDONE 40 MG CAP PO SCH (10:13)
== END 2022-10-11 10:59 | DRG 751 ==
LOC: EC 20:07 → 3MHU 10-03 01:29
PROVIDERS: ADMIT Psychiatry & Neurology Psychiatry; ATTEND Psychiatry & Neurology Psychiatry
PROC: 0XQHXZZ Repair Left Wrist Region, External Approach (ICD-10-PCS; principal; 2022-10-03)
DX: F33.3 Major depressive disorder, recurrent, severe with psychotic symptoms (principal); F15.11 Other stimulant abuse, in remission; F17.200 Nicotine dependence, unspecified, uncomplicated; F41.9 Anxiety disorder, unspecified; F90.9 Attention-deficit hyperactivity disorder, unspecified type; S51.812A Laceration without foreign body of left forearm, initial encounter; S61.512A Laceration without foreign body of left wrist, initial encounter; X78.8XXA Intentional self-harm by other sharp object, initial encounter; Z91.199 Patient's noncompliance with other medical treatment and regimen due to unspecified reason; Z20.822 Contact with and (suspected) exposure to COVID-19
CPT/HCPCS: 12005; 80053; 80061; 80306; 81003; 81025; 82248; 83036; 84443; 85025; 87635; 90471; 90715; 96374; 99285